=== PATIENT | female | born 1990 | race Caucasian/White ===

== ENCOUNTER → 2022-12-10 | Outpatient (CLI) | payer OTHER, SELFPAY ==
[2022-12-10 06:48] LABS: Absolute Neutrophil Count 4.7 X10^3/uL (2.0-7.7); Basophil# 0.05 X10^3/uL; Basophil% 0.6 % (0-1); Eosinophil# 0.49 X10^3/uL; Eosinophils% 6.1 % (0-5); Hematocrit 41.2 % (37-47); Hemoglobin 13.3 g/dL (12.0-15.0); Lymphocyte % 26.2 % (19-41); Mean Corp Hgb Conc 32.3 g/dL (32-36); Mean Corpuscular Hgb 29.2 pg (27.0-32.0); Mean Corpuscular Volume 90.5 fL (81-99); Mean Platelet Vol. 9.4 fl (6.2-12.0); Monocyte# 0.63 X10^3/uL; Monocyte% 7.9 % (0-10); NRBC Flagged by Analyzer 0 % (0-5); Neutrophil # 4.71 X10^3/uL (2.7-7.7); Neutrophil % 58.8 % (47-70); Platelet Count 231 K/mm3 (150-450); RBC Distribution Width CV 11.8 % (11.6-14.6); RBC Distribution Width SD 39.4 fl (35.1-43.9); Red Blood Count 4.55 M/mm3 (4.2-5.4)
[2022-12-10 07:39] LABS: AST(SGOT) 17 U/L (15-37); Alanine Aminotransfer ALT/SGPT 25 U/L (13-56); Albumin, Serum 3.7 g/dL (3.2-5.0); Alkaline Phosphatase 73 U/L (45-117); Anion Gap 6 (5-15); BUN 13 mg/dL (7-18); BUN/Creat Ratio 17.9 RATIO (10-20); Calcium,Total 8.8 mg/dL (8.5-10.1); Chloride 107 mmol/L (98-107); Cholesterol 105 mg/dL (200); Creatinine, Serum 0.72 mg/dL (0.55-1.02); EST Glomerular Filtration Rate 98 mL/min (>60); Est Glom Filt Rate - Afr Amer 118 mL/min (>60); Free T3 2.5 pg/mL (2.18-3.98); Globulin 3.6 g/dL (2.2-4.2); Glucose 82 mg/dL (74-106); High Density Lipoprotein 56 mg/dL; Potassium 3.8 mmol/L (3.5-5.1); Protein, Total 7.3 g/dL (6.4-8.2); Sodium Level 139 mmol/L (136-145); T4 Free Direct 1.16 ng/dL (0.76-1.46); Triglycerides 39 mg/dL; Very Low Density Lipoprotein 8 mg/dL (5-40)
[2022-12-10 08:54] LABS: Vitamin B12 491 pg/mL (211-911); Vitamin D,25 Hydroxy 40.8 ng/mL
[2022-12-10 09:04] LABS: Hemoglobin A1c 4.8 % (3.8-5.6)
[2022-12-12 08:11] LABS: Thyroid Peroxidase AB 360 IU/mL (0-34); Thyroid Stim Immunoglob <0.10 IU/L (0.00-0.55)
[2022-12-16 16:10] LABS: Endomysial Antibody IgA Negative (Negative); Immunoglobulin A 168 mg/dL (87-352); t-Transglutaminase IgA <2 U/mL (0-3)
== END | disposition home or self-care (01) ==
LOC: LAB 06:18
PROVIDERS: PCP Family Medicine; Referring Provider Family Medicine; Visit Provider Family Medicine
DX: R89.8 Other abnormal findings in specimens from other organs, systems and tissues (principal); Z13.228 Encounter for screening for other metabolic disorders; N97.9 Female infertility, unspecified; R94.6 Abnormal results of thyroid function studies; Z13.220 Encounter for screening for lipoid disorders; Z13.1 Encounter for screening for diabetes mellitus; Z13.0 Encounter for screening for diseases of the blood and blood-forming organs and certain disorders involving the immune mechanism
CPT/HCPCS: 36415; 80053; 80061; 82306; 82607; 82784; 83036; 83516; 84439; 84443; 84445; 84481; 85025; 86255; 86376

== ENCOUNTER → 2022-12-15 | Outpatient (CLI) | payer OTHER, SELFPAY ==
--- NOTE | 2022-12-15 15:20 | US_ITS ---
STUDY: THYROID ULTRASOUND REASON FOR EXAM: Female, 32 years old. Patient with L sided nodule and hx of infertility with no cause TECHNIQUE: Ultrasound evaluation of the thyroid was performed with real-time and static johnson-scale imaging. COMPARISON: None. FINDINGS: RIGHT LOBE: The right lobe of the thyroid gland measures 5.8 x 1.7 x 2.0 cm. There is a heterogeneous echotexture. 4 mm likely colloid cyst in the lower pole. LEFT LOBE: The left lobe of the thyroid gland measures 5.2 x 1.8 x 1.6 cm. There is a heterogeneous echotexture. Complex 1.3 cm nodule. 5 mm probable colloid cyst. ISTHMUS: The isthmus measures 3 mm . The thyroid gland appears diffusely slightly hypervascular. The regional lymph nodes are normal. US/Thyroid IMPRESSION: Nonspecific of the thyroid gland suspicious for probable chronic thyroiditis. Complex 1.3 cm left thyroid nodule should be followed in one year. Electronically Signed: Ld Greene MD at 22:47 EDT ,
== END | disposition home or self-care (01) ==
LOC: US 15:18
PROVIDERS: PCP Family Medicine; Referring Provider Family Medicine; Visit Provider Family Medicine
DX: R94.6 Abnormal results of thyroid function studies (principal); R89.8 Other abnormal findings in specimens from other organs, systems and tissues
CPT/HCPCS: 36415; 76536; 82784; 83516; 86255

== ENCOUNTER → 2023-01-26 | Outpatient (CLI) | payer OTHER, SELFPAY ==
[2023-01-26 08:08] LABS: T4 Free Direct 1.01 ng/dL (0.76-1.46); Thyroid Stim Hormone (TSH) 4.38 uIU/mL (0.358-3.74)
== END | disposition home or self-care (01) ==
PROVIDERS: PCP Family Medicine; Referring Provider Family Medicine; Visit Provider Family Medicine
DX: R94.6 Abnormal results of thyroid function studies (principal)
CPT/HCPCS: 36415; 84439; 84443

== ENCOUNTER → 2023-03-11 | Outpatient (CLI) | payer OTHER, SELFPAY ==
[2023-03-11 08:27] LABS: T4 Free Direct 1.31 ng/dL (0.76-1.46); Thyroid Stim Hormone (TSH) 2.59 uIU/mL (0.358-3.74)
== END | disposition home or self-care (01) ==
PROVIDERS: PCP Family Medicine; Referring Provider Family Medicine; Visit Provider Family Medicine
DX: E03.9 Hypothyroidism, unspecified (principal)
CPT/HCPCS: 36415; 84439; 84443

== ENCOUNTER → 2023-05-03 | Outpatient (CLI) | payer OTHER, SELFPAY ==
[2023-05-03 07:55] LABS: Ferritin 75 ng/mL (8-252); Free T3 2.6 pg/mL (2.18-3.98); T4 Free Direct 1.43 ng/dL (0.76-1.46); Thyroid Stim Hormone (TSH) 0.38 uIU/mL (0.358-3.74)
[2023-05-08 00:06] LABS: Beef <0.10 kU/L (Class 0); Chocolate <0.10 kU/L (Class 0); Codfish <0.10 kU/L (Class 0); Corn <0.10 kU/L (Class 0); Egg, Whole <0.10 kU/L (Class 0); Milk (Cow) <0.10 kU/L (Class 0); Mussels <0.10 kU/L (Class 0); Peanut <0.10 kU/L (Class 0); Pork <0.10 kU/L (Class 0); Salmon <0.10 kU/L (Class 0); Shrimp <0.10 kU/L (Class 0); Soybean <0.10 kU/L (Class 0); Tuna <0.10 kU/L (Class 0); Wheat <0.10 kU/L (Class 0)
== END | disposition home or self-care (01) ==
LOC: LAB 05:58
PROVIDERS: PCP Family Medicine; Referring Provider Family Medicine; Visit Provider Family Medicine
DX: L65.9 Nonscarring hair loss, unspecified (principal); E03.9 Hypothyroidism, unspecified; R19.8 Other specified symptoms and signs involving the digestive system and abdomen
CPT/HCPCS: 36415; 82728; 84439; 84443; 84481; 86003; 86005

== ENCOUNTER → 2023-05-05 | Outpatient (CLI) | payer OTHER, SELFPAY ==
[2023-05-11 10:08] LABS: HPV APTIMA, High Risk Negative (Negative)
== END | disposition home or self-care (01) ==
LOC: LABSPEC 16:51
PROVIDERS: PCP Family Medicine; Referring Provider Registered Nurse; Visit Provider Registered Nurse
DX: Z12.4 Encounter for screening for malignant neoplasm of cervix (principal)
CPT/HCPCS: 87624; 88175; G0145

== ENCOUNTER 2023-07-08 12:20 | Outpatient (REF) | payer SELFPAY ==
[2023-07-08 12:23] VITALS: BP 118/70; PULSE 70; RESP 14; TEMP 36.6; O2SAT 99; BMI 21.2
--- NOTE | 2023-07-08 13:29 | EDS_ITS ---
HPI History of Present Illness Chief Complaint: Occup Expose Informant: patient Onset/Context/Timing Location: Right Eye Onset: Today Context: Sudden Onset Worsened by: Nothing Relieved by: Nothing Narrative Narrative: Patient presents with occupational exposure that occurred today. Patient states she was sitting in her desk and somebody was standing beside her and disconnected some tubing. Patient states she felt something splashed into her eye. Patient states she looked down and noticed there was blood. Patient denies any visual changes. Patient denies any puncture wounds. Patient states she is up-to-date on her immunizations. Patient denies any other symptoms. Patient states she irrigated her eyes after the incident. [facility] Medical History COVID-19 Thyroid disease Home Medications multivitamin 1 tab PO DAILY 03/30/23 [History Last Taken Unknown] clomiphene citrate 50 mg tablet (Clomid) 50 mg PO DAILY 5 days #5 tabs 05/05/23 [Rx Last Taken Unknown] levothyroxine 37.5 mcg capsule 75 mcg PO DAILY 05/05/23 [History Last Taken Unknown] Allergy/AdvReac Type Severity Reaction Status Date / Time Latex, Natural Rubber Allergy Mild Hives Verified 07/08/23 12:21 nickel Allergy Mild Rash Verified 07/08/23 12:21 povidone-iodine Allergy Mild Hives Verified 07/08/23 12:21 [From Betadine] Seasonal Allergies: Uncoded Allergy Mild Other Verified 07/08/23 12:21 Family History (Updated 05/05/23 @ 15:40 by Jennifer Martini) Father Asthma Hypertension PAD (peripheral artery disease) Brother Asthma Grandmother Dementia Thyroid disorder Grandfather Dementia Grandfather Heart disease Father Heart disease Aunt Thyroid disorder Surgical History Hx of rhinoplasty Social History adopted: Yes household members: spouse number of children: 0 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 pets and animals: dog(s) history of recent travel: Yes ([place]) out of state: Yes out of country: No sexually active: Yes Smoking Status: Never smoker alcohol intake: current alcohol intake frequency: a few times a month Alcohol type: hard liquor substance use type: does not use diet: gluten free caffeine: No (stopped 1 month) what type of physical activity do you participate in: walking and weight training seatbelt use: always do you feel safe at home: Yes 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 ROS ED Constitutional Constitutional ED: Denies chills or fever(s) Eyes Eyes: Denies blurry vision or change in vision Respiratory/Chest Respiratory/Chest: Denies cough or dyspnea Gastrointestinal Gastrointestinal: Denies nausea or vomiting Musculoskeletal Musculoskeletal: Denies back pain or neck pain Integumentary Denies abscess or rash Neurologic Neurologic: Denies headache(s) Allergic/Immunologic Allergic/Immunologic ED: Denies urticaria EXAM Physical Exam Const Vital Signs: 07/08/23 12:23 Temperature 98 F Temperature Source Temporal Pulse Rate 70 Respiratory Rate 14 Blood Pressure 118/70 Blood Pressure Mean 86 Pulse Ox 99 Oxygen Delivery Method Room Air Positive well nourished and well developed General Appearance ED: well developed and NAD HEENT atraumatic Eyes Eyes Narrative: Pupils are equal, round, reactive to light bilaterally. Extraocular muscles are intact. Conjunctiva is clear. There are no foreign bodies noted. There is no lid edema noted. Neck supple and no JVD Resp normal respiratory effort and clear to auscultation bilaterally Cardio regular rate and regular rhythm Neuro oriented x3, CN's II-XII intact bilaterally, moves all extremities and no sensory deficits noted Sensorium / Orientation: alert Motor Exam: strength 5/5 throughout MDM MDM MDM Narrative Medical decision making narrative: Patient was advised that this is low risk for HIV exposure. Patient had protocol labs drawn. Patient will be instructed to follow-up with employee health for results. Patient was instructed to return if worse in any way. Patient understood and was agreeable with the plan. All questions were answered. Discharge Plan Triage Chief Complaint: Occup Expose ED Provider: Leonard Keller Dx/Rx/DC Orders Clinical Impression: Exposure to blood-borne pathogen Instructions: ED Body Fluid Exposure Not ..., ED Eye Exposure, Chemical Prescriptions: No Action clomiphene citrate [Clomid] 50 mg tablet 50 mg PO DAILY 5 Days Qty: 5 6RF Rx Instructions: start on 5 day of cycle (day 1 is first day of menstrual bleeding) for 5 days multivitamin Tablet 1 tab PO DAILY levothyroxine 37.5 mcg capsule 75 mcg PO DAILY Primary Care Provider: Katie No Referrals: Katie No, DO [Primary Care Provider] - 5-7 Days Health,Employee [Non-Staff -Ordering Privileges] - 5-7 Days Disposition Disposition: Home, Self Care
[2023-07-08 13:42] VITALS: RESP 16
[2023-07-08 14:21] LABS: HIV - WCH Non-Reactive (Nonreactive); Hepatitis B Surface Antibody Reactive; Hepatitis B Surface Antigen Non-Reactive (Nonreactive); Hepatitis C Antibody Non-Reactive (Nonreactive)
== END 2023-07-08 13:43 | disposition home or self-care (01) ==
LOC: EDREF 12:20
PROVIDERS: PCP Family Medicine; Visit Provider Emergency Medicine
DX: Z77.21 Contact with and (suspected) exposure to potentially hazardous body fluids (principal); E07.9 Disorder of thyroid, unspecified; Z79.899 Other long term (current) drug therapy
CPT/HCPCS: 36415; 86703; 86706; 86803; 87340; 99284

== ENCOUNTER → 2023-11-16 | Outpatient (CLI) | payer OTHER, SELFPAY ==
[2023-11-16 08:15] LABS: Thyroid Stim Hormone (TSH) 1.58 uIU/mL (0.358-3.74)
== END | disposition home or self-care (01) ==
LOC: LAB 06:49
PROVIDERS: PCP Family Medicine; Referring Provider Family Medicine; Visit Provider Family Medicine
DX: R00.2 Palpitations (principal); E03.9 Hypothyroidism, unspecified
CPT/HCPCS: 36415; 84443

== ENCOUNTER → 2023-12-03 | Outpatient (CLI) | payer OTHER, SELFPAY | END | disposition home or self-care (01) | LOC: LABSPEC 16:35 | PROVIDERS: PCP Family Medicine; Visit Provider Physician Assistant Surgical | DX: N39.0 Urinary tract infection, site not specified (principal) | CPT/HCPCS: 87086; 87088 ==

== ENCOUNTER → 2024-01-10 | Outpatient (CLI) | payer OTHER, SELFPAY ==
--- NOTE | 2024-01-10 16:16 | US_ITS ---
STUDY: THYROID ULTRASOUND REASON FOR EXAM: Female, 33 years old. Thyroid nodules TECHNIQUE: Ultrasound evaluation of the thyroid was performed with real-time and static johnson-scale imaging. COMPARISON: Comparison is made with prior study of December 15, 2022. FINDINGS: RIGHT LOBE: The right lobe of the thyroid gland is enlarged and measures 5.8 cm x 1.6 cm x 1.9 cm. There is a heterogeneous echotexture. Stable 4 mm x 3 mm x 3 mm solid/cystic nodule in the lower pole. This most likely represents a colloid cyst and is essentially unchanged. LEFT LOBE: The left lobe of the thyroid gland is enlarged and measures 5.6 cm x 1.7 cm x 1.3 cm. There is a heterogeneous echotexture. There is a 1 cm x 0.9 cm x 0.4 cm hypoechoic solid nodule in the upper pole. This is essentially unchanged. There is also evidence of a 4 mm x 5 mm x 3 mm hypoechoic solid nodule in the midpole. ISTHMUS: The isthmus measures 3 mm. There is evidence of a 1.4 cm x 0.9 cm x 0.4 cm benign-appearing lymph node along the inferior aspect of the left lobe of the thyroid. US/Thyroid IMPRESSION: Stable examination. Electronically Signed: Carlos Cuevas MD at 9:56 EDT ,
== END | disposition home or self-care (01) ==
LOC: US 16:15
PROVIDERS: PCP Family Medicine; Referring Provider Family Medicine; Visit Provider Family Medicine
DX: E03.9 Hypothyroidism, unspecified (principal)
CPT/HCPCS: 76536

== ENCOUNTER 2024-03-20 13:32 | Outpatient (REF) | payer SELFPAY ==
[2024-03-20 13:32] VITALS: BP 104/67; PULSE 72; RESP 16; TEMP 36.3; O2SAT 100; BMI 21.4
--- NOTE | 2024-03-20 16:19 | EDS_ITS ---
HPI History of Present Illness Chief Complaint: Occup Expose Informant: patient Narrative Narrative: Presents needlestick left middle finger. Play here. States blood was being transferred into the tube, she is recapping it when she got punctured. Swallowed needle. She had blood splashed in her eye previously. No needlesticks in the past. Tetanus up-to-date. She had her hepatitis A and B vaccinations. Source patient being tested in the field however no known HIV history. Tetanus Immunization: <5 years Prior similar symptoms: No PFSH PFSH Medical History COVID-19 Thyroid disease Home Medications ?Medication ?Instructions ?Recorded ?Last Taken ?Type multivitamin 1 tab PO DAILY 03/30/23 Unknown History levothyroxine 37.5 mcg capsule 75 mcg PO DAILY 05/05/23 Unknown History letrozole 2.5 mg tablet 2.5 mg PO DAILY 5 days #5 tabs 08/29/23 Unknown Rx Allergy/AdvReac Type Severity Reaction Status Date / Time Latex, Natural Rubber Allergy Mild Hives Verified 03/20/24 13:34 nickel Allergy Mild Rash Verified 03/20/24 13:34 povidone-iodine (From Allergy Mild Hives Verified 03/20/24 13:34 Betadine) Seasonal Allergies: Uncoded Allergy Mild Other Verified 03/20/24 13:34 Family History Father Asthma Hypertension PAD (peripheral artery disease) Brother Asthma Grandmother Dementia Thyroid disorder Grandfather Dementia Grandfather Heart disease Father Heart disease Aunt Thyroid disorder Surgical History Hx of rhinoplasty Social History adopted: Yes household members: spouse number of children: 0 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 pets and animals: dog(s) history of recent travel: Yes ([place]) out of state: Yes out of country: No sexually active: Yes Smoking Status: Never smoker alcohol intake: current alcohol intake frequency: a few times a month Alcohol type: hard liquor substance use type: does not use diet: gluten free caffeine: No (stopped 1 month) what type of physical activity do you participate in: walking and weight training seatbelt use: always do you feel safe at home: Yes 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 ROS ED Constitutional Constitutional ED: Denies fever(s) Cardiovascular Cardiovascular: Denies chest pain Respiratory/Chest Respiratory/Chest: Denies cough Gastrointestinal Gastrointestinal: Denies abdominal pain Musculoskeletal Musculoskeletal: Reports other Details: Puncture left middle finger Integumentary Reports wounds; Denies rash Neurologic Neurologic: Denies paresthesias EXAM Physical Exam Const Vital Signs: 03/20/24 13:32 Temperature 97.4 F L Temperature Source Temporal Pulse Rate 72 Respiratory Rate 16 Blood Pressure 104/67 Blood Pressure Mean 79 Pulse Ox 100 Oxygen Delivery Method Room Air Positive well nourished and well developed General Appearance ED: well developed and NAD HEENT Reports moist mucous membranes normocephalic Eyes General Eye ED: Yes normal appearance of both eyes Neck full ROM Resp normal respiratory effort and normal air movement Effort and Inspection: symmetric chest movement; Negative for respiratory distress Cardio regular rate, regular rhythm and no murmurs Peripheral Pulses: pulses 2+ throughout GI normal to inspection, nondistended, normoactive bowel sounds and non-tender Palpation: Negative for guarding or rebound tenderness present Back/Spine no CVA tenderness and no thoracic nor lumbar tenderness Extremity normal to inspection General Extremety ED: Negative for edema or tenderness General Extremity: Negative for edema Neuro oriented x3 and no sensory deficits noted Sensorium / Orientation: awake and alert Skin Skin Narrative: No clear puncture wound seen distal tip of middle finger on the left. There is slight callus formation at the tip. No drainage no erythema. MDM MDM MDM Narrative Medical decision making narrative: Interventions / MDM: Differential diagnosis: Needlestick left middle finger Diagnosis considered but do not suspect: N/A My EKG interpretation: N/A Imaging independently reviewed and interpreted by myself: N/A External documents reviewed: N/A Test considered but not ordered:N/A ED course: Vital stable needlestick protocol labs obtained. Patient not unknown HIV patient. However she did get stuck by all needle with blood. Discussed risk limit higher than a blunt needle. Discussed options to start prophylaxis for HIV. Risk and benefits were discussed. She will decline at this time. She will follow-up with occupational health for retesting as needed. All questions were answered. Re-evaluation: stable Disposition discussed with patient/family/significant other: Patient Case discussed with consulting clinician: N/A This note was generated with [employer] dictation software. It may contain incorrect words, spelling, and punctuation that were not noted in checking the note before signing. Discharge Plan Triage Chief Complaint: Occup Expose ED Provider: Patrick River Dx/Rx/DC Orders Clinical Impression: Needlestick injury of finger, Work related injury Instructions: ED NEEDLE STICK Health Care Worker Prescriptions: No Action multivitamin Tablet 1 tab PO DAILY levothyroxine 37.5 mcg capsule 75 mcg PO DAILY letrozole 2.5 mg tablet 2.5 mg PO DAILY 5 Days Qty: 5 3RF Rx Instructions: begin between days 2 and 5 of mentrual cycle Primary Care Provider: Umu Altamirano Referrals: Umu Altamirano MD [Primary Care Provider] - Activity Restrictions/Additional Instructions: Needlestick protocol labs were sent. Follow-up with occupational health. Print Language: Nepali Disposition Disposition: Home, Self Care
[2024-03-20 17:53] LABS: HIV - WCH Non-Reactive (Nonreactive); Hepatitis B Surface Antibody Reactive; Hepatitis B Surface Antigen Non-Reactive (Nonreactive); Hepatitis C Antibody Non-Reactive (Nonreactive)
== END 2024-03-20 16:46 | disposition home or self-care (01) ==
LOC: ED 13:32
PROVIDERS: PCP Family Medicine; Visit Provider Emergency Medicine
DX: S61.233A Puncture wound without foreign body of left middle finger without damage to nail, initial encounter (principal); W46.0XXA Contact with hypodermic needle, initial encounter; Z77.21 Contact with and (suspected) exposure to potentially hazardous body fluids
CPT/HCPCS: 86703; 86706; 86803; 87340

== ENCOUNTER 2024-08-03 20:08 | Emergency (ER) | payer OTHER, SELFPAY ==
[2024-08-03 20:09] VITALS: BP 126/66; PULSE 75; RESP 16; TEMP 36.6; O2SAT 99; BMI 21.6
--- NOTE | 2024-08-03 21:31 | EDS_ITS ---
HPI History of Present Illness Chief Complaint: Occup Expose [facility] Medical History Thyroid disease Home Medications ?Medication ?Instructions ?Recorded ?Last Taken ?Type multivitamin 1 tab PO DAILY 03/30/23 Unknown History levothyroxine 37.5 mcg capsule 75 mcg PO DAILY 05/05/23 Unknown History Allergy/AdvReac Type Severity Reaction Status Date / Time Latex, Natural Rubber Allergy Mild Hives Verified 08/03/24 20:13 nickel Allergy Mild Rash Verified 08/03/24 20:13 povidone-iodine (From Allergy Mild Hives Verified 08/03/24 20:13 Betadine) Seasonal Allergies: Uncoded Allergy Mild Other Verified 08/03/24 20:13 Family History Father Asthma Hypertension PAD (peripheral artery disease) Brother Asthma Grandmother Dementia Thyroid disorder Grandfather Dementia Grandfather Heart disease Father Heart disease Aunt Thyroid disorder Surgical History Hx of rhinoplasty Social History adopted: Yes household members: spouse number of children: 0 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 pets and animals: dog(s) history of recent travel: Yes ([place]) out of state: Yes out of country: No sexually active: Yes Smoking Status: Never smoker alcohol intake: current alcohol intake frequency: a few times a month Alcohol type: hard liquor substance use type: does not use diet: gluten free caffeine: No (stopped 1 month) what type of physical activity do you participate in: walking and weight training seatbelt use: always do you feel safe at home: Yes 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 Physical Exam Const Vital Signs: 08/03/24 20:09 08/03/24 21:39 08/03/24 23:15 Temperature 98 F Temperature Source Temporal Pulse Rate 75 Respiratory Rate 16 Respiratory Effort Normal Non-Labored Normal Non-Labored Respiratory Depth Normal Respiratory Pattern Normal Normal Blood Pressure 126/66 H Blood Pressure Mean 86 Pulse Ox 99 Oxygen Delivery Method Room Air 08/03/24 23:16 Temperature 97.1 F L Temperature Source Pulse Rate 85 Respiratory Rate 18 Respiratory Effort Respiratory Depth Respiratory Pattern Blood Pressure 137/82 H Blood Pressure Mean 100 Pulse Ox 98 Oxygen Delivery Method [facility] [place] Narrative Medical decision making narrative: HISTORY OF PRESENT ILLNESS: 34 F here with concern for formaldehyde exposure, complains of eye irritation, SOB, sore throat, cough. This occurred just prior to arrival. She denies any direct exposure provide she was in the same room someone cleaning. REVIEW OF SYSTEMS: Pertinent positives: As per HPI Pertinent negatives: Difficulty swallowing, drooling, visual changes PHYSICAL EXAM: Nursing triage notes reviewed, Vital signs reviewed Constitutional: please see mdm HENT: MMM Eyes: Pupils equal round and reactive to light, Extraocular muscles intact, visual acuity 20/15 bilaterally, no conjunctival injection, visual solitario intact, no signs of mucosal damage Neck: No stridor, no JVD, full neck ROM Lungs: Clear to auscultation, No wheezing or rales. No increased work of breathing, no conversational dyspnea, no accessory muscle use, no nasal flaring. No respiratory distress noted Heart: Regular rate and rhythm, No murmurs, No rubs and No gallops, 2+ distal pulses (radial, femoral, posterior tibial) in all extremities Abdomen: Soft, there is no tenderness, rigidity, rebound or guarding, no obvious peritoneal signs, no palpable pulsatile abdominal masses, no auscultated abdominal bruit : No CVAT Extremities: No edema Neuro: No new focal neurological deficits, cranial nerves II through XII intact, 5/5 strength in all present extremities. Intact sensation to light touch in all present extremities, 2+ reflexes bilateral patella tendons. Skin: No rash or lesions noted MEDICAL DECISION MAKING: Chief Complaint: Chemical exposure External records reviewed: Reviewed prior allergies Factors affecting care: none Social determinants of health: none History obtained from others: none Consults: Poison control : direct exposure could cause eye irritation. recommended decontamination. Avoid re-exposure. WOuld not expect systemic or local toxicity without direct exposure. [facility] Narrative: The patient was initially hemodynamically stable, afebrile and nontoxic- appearing. Exam without signs of airway compromise or visual changes. Did speak to poison control who recommended decontamination with eye irrigation. Further decontamination removal of all close was also recommended. I obtained an x-ray because the patient complaint of shortness of breath and cough. X-ray was read reviewed person myself showed evidence of obvious pulmonary abnormalities. No evidence of chemical pneumonitis or otherwise. Radiologist agreed my interpretation. The patient and/or family, caregivers express understanding. The patient and/or family, caregivers agrees with the plan. Shared decision making: I will have a discussion with the patient and or visitors regarding risk/benefits of further testing or admission. They will be made aware of of the risk/benefits inherent in this decision they will be given the opportunity to voice understanding. Total critical care time today provided was at least 0 minutes. This excludes separately billable procedures. Critical care time (if documented) is secondary to the patient having high probability of clinically significant/life threatening deterioration in the patient's condition which required my urgent intervention. Impression: 1. Chemical exposure 2. Chemical Eye Irritation Dispo: Discharge home This note was generated with [employer] dictation software. It may contain incorrect words, spelling, and punctuation that were not noted in review of the chart prior to signing. Radiography Diagnostic Testing: Clinical Impression(s) from Imaging Studies Chest X-Ray 08/03/24 22:24 IMPRESSION: No radiographic evidence of acute cardiopulmonary disease. Electronically Signed: Jas Mason MD at 23:06 EST , Discharge Plan Triage Chief Complaint: Occup Expose Other Complaint: Shortness of Breath ED Provider: Figueroa Johnson Dx/Rx/DC Orders Instructions: ED Chemical Inhalation Prescriptions: No Action multivitamin Tablet 1 tab PO DAILY levothyroxine 37.5 mcg capsule 75 mcg PO DAILY Primary Care Provider: Umu Altamirano Referrals: Umu Altamirano MD [Primary Care Provider] - Activity Restrictions/Additional Instructions: Thank you for trusting us with your care today! Please take Tylenol (2 pills, 650 mg), ibuprofen (2 pills, 400 mg) every 6 hours as needed for pain and fever control. Please return to the emergency department if your symptoms change or worsen. Please follow with your primary care physician for further outpatient evaluation and management. Print Language: Italian Disposition Disposition: Home, Self Care
--- NOTE | 2024-08-03 22:24 | RAD_ITS ---
EXAM: XR CHEST, 1 VIEW CLINICAL INDICATION: cough TECHNIQUE: Frontal view of the chest. COMPARISON: No relevant prior studies available. FINDINGS: LUNGS AND PLEURAL SPACES: Unremarkable. No consolidation or edema. No pneumothorax. No effusion. HEART: Unremarkable. Cardiac silhouette not enlarged. MEDIASTINUM: Central airways and mediastinal contour are unremarkable. BONES/JOINTS: Unremarkable. No acute fracture. SOFT TISSUES: Unremarkable. RAD/Chest 1 View (Portable) IMPRESSION: No radiographic evidence of acute cardiopulmonary disease. Electronically Signed: Jas Mason MD at 23:06 EST ,
[2024-08-03 23:15] VITALS: O2SAT 98
[2024-08-03 23:16] VITALS: BP 137/82; PULSE 85; RESP 18; TEMP 36.2; O2SAT 98
== END 2024-08-03 23:30 | disposition home or self-care (01) ==
PROVIDERS: Emergency Provider Emergency Medicine; PCP Family Medicine; Visit Provider Emergency Medicine
DX: Z77.098 Contact with and (suspected) exposure to other hazardous, chiefly nonmedicinal, chemicals (principal); R06.02 Shortness of breath; Z82.49 Family history of ischemic heart disease and other diseases of the circulatory system; Z82.5 Family history of asthma and other chronic lower respiratory diseases; H57.89 Other specified disorders of eye and adnexa; E07.9 Disorder of thyroid, unspecified
CPT/HCPCS: 71045; 99284

== ENCOUNTER → 2024-12-27 | Outpatient (CLI) | payer OTHER, SELFPAY ==
[2024-12-27 11:02] LABS: Absolute Lymphocyte Count 1.97 X10^3/uL (0.83-4.51); Absolute Neutrophil Count 3.3 X10^3/uL (2.0-7.7); Basophil# 0.02 X10^3/uL; Basophil% 0.3 % (0-1); Eosinophil# 0.73 X10^3/uL; Hematocrit 39.1 % (37-47); Lymphocyte # 1.97 X10^3/ul (0.83-4.51); Lymphocyte % 29.8 % (19-41); Mean Corp Hgb Conc 33.2 g/dL (32-36); Mean Corpuscular Hgb 29.5 pg (27.0-32.0); Mean Corpuscular Volume 88.7 fL (81-99); Mean Platelet Vol. 9.3 fl (6.2-12.0); Monocyte% 9.1 % (0-10); NRBC Flagged by Analyzer 0 % (0-5); Neutrophil # 3.28 X10^3/uL (2.7-7.7); Neutrophil % 49.6 % (47-70); Platelet Count 215 K/mm3 (150-450); RBC Distribution Width CV 12.2 % (11.6-14.6); RBC Distribution Width SD 39.7 fl (35.1-43.9); Red Blood Count 4.41 M/mm3 (4.2-5.4); White Blood Count 6.6 K/mm3 (4.4-11.0)
[2024-12-27 13:37] LABS: ALB/GLOB Ratio 1.6 RATIO (0.9-2.4); AST(SGOT) 16 U/L (<=31); Alanine Aminotransfer ALT/SGPT 14 U/L (<=34); Albumin, Serum 4.2 g/dL (3.5-5.0); Alkaline Phosphatase 77 U/L (35-104); Anion Gap 10 (5-15); BUN 10 mg/dL (4-19); BUN/Creat Ratio 16.7 RATIO (10-20); Carbon Dioxide 21.2 mmol/L (21.0-32.0); Chloride 107 mmol/L (98-108); Cholesterol 119 mg/dL (<=200); EST Glomerular Filtration Rate 120 (>60); Globulin 2.7 g/dL (2.2-4.2); Glucose 80 mg/dL (70-99); High Density Lipoprotein 51 mg/dL; Low Density Lipoprotein Calc. 56 mg/dL; Potassium 3.9 mmol/L (3.3-5.1); Protein, Total 6.9 g/dL (5.9-8.4); Sodium Level 138 mmol/L (133-145); Thyroid Stim Hormone (TSH) 0.847 uIU/mL (0.300-4.200); Total Bilirubin 0.35 mg/dL (0.00-1.30); Triglycerides 62 mg/dL; Very Low Density Lipoprotein 12 mg/dL (5-40); Vitamin D,25 Hydroxy 51.9 ng/mL (30-100); cholesterol:hdl ratio screen 2.34
== END | disposition home or self-care (01) ==
LOC: LAB 10:07
PROVIDERS: PCP Family Medicine; Referring Provider Family Medicine; Visit Provider Family Medicine
DX: Z00.00 Encounter for general adult medical examination without abnormal findings (principal); R89.8 Other abnormal findings in specimens from other organs, systems and tissues; Z13.220 Encounter for screening for lipoid disorders; Z13.1 Encounter for screening for diabetes mellitus; E03.9 Hypothyroidism, unspecified
CPT/HCPCS: 36415; 80053; 80061; 82306; 84443; 85025

== ENCOUNTER 2025-03-21 13:30 | Outpatient (CLI) | payer OTHER, SELFPAY ==
--- OUTSIDE RECORDS SUMMARY | 2025-03-21 19:41 | XMS RPT_ITS | CCD ---
Author Organization [facility] Inform ion Partnership [facility] Care Team Providers Care Bracelet Form Coverer Name Role Phone Becky Parham Unavailable Unavailable Becky Parham Unavailable Unavailable MAXIME IVEY Unavailable MAXIME IVEY Unavailable Maxime Ivey MD Primary Care Provider Max Glaser MD Unavailable Maxime Ivey MD Primary Care Provider Max Glaser MD Unavailable [phone] Maxime Ivey MD Primary Care Provider Max Glaser MD Unavailable MAXIME IVEY Primary Care Unavailab MINA Austin Attending UnavailMINA Tran Referring UnavailMAXIME Sylvester Primary Care Unavailab MINA Austin Attending UnavailJENNIFER eMnsah Referring Unavailable MAXIME IVEY Primary Care Unavailab MINA Austin Attending UnavailMINA Tran Referring UnavailMAXIME Sylvester Primary Care Unavailab MINA Austin Attending UnavailMINA Tran Referring Unavailabl MAXIME Mukherjee Primary Care Unavailab MINA Austin Referring UnavailMAXIME Sylvester Primary Care Unavailab MAXIME Cutler Primary Care Unavailab MINA Austin Referring Unavailabl MAXIME Mukherjee Referring Unavailab MAXIME Cutler Primary Care Unavailab MAXIME Cutler Primary Care Unavailab MAXIME Cutler Primary Care Unavailab YAMILA Bean Attending Unavail able MINA VARELA Referring Unavailabl e MINA VARELA Referring Unavailabl e KODY, CHRISTOPHER B Primary Care Unavailab le KODY, CHRISTOPHER B Primary Care Unavailab JENI Beal Attending Unavailable BURSLEY, CHRISTOPHER B Primary Care Unavailab BRAULIO Stoll Attending Unavailable BURSLEY, CHRISTOPHER B Primary Care Unavailab le KEARNEY, JENNIFER Referring Unavailable KEARNEY, JENNIFER Referring Unavailable BURSLEY, CHRISTOPHER B Primary Care Unavailab le KEARNEY, JENNIFER Attending Unavailable BURSLEY, CHRISTOPHER B Primary Care Unavailab le DUDZIAK CARIDAD Referring Unavailable BURSLEY, CHRISTOPHER B Primary Care Unavailab DO Katie Underwood Primary Care Provider [phone] DO Katie No Referring Provider [phone] MADONNA Schaffer Attending Provider AMINA Avila Attending Provider DO Katie No Primary Care Provider [phone] DO Katie No Referring Provider MADONNA Rojas Attending Provider Umu Altamirano MD Primary Care Provider [phone] Umu Altamirano MD Attending Provider [phone] Umu Altamirano MD Referring Provider [phone] Evelia, Chalon Referring Unavailable Evelia, Umu Attending Unavailable Evelia, Chalon Primary Care Unavailable Evelia, Chalon Primary Care Unavailable Figueroa Johnson Attending Unavailable Evelia, Chalon Primary Care Unavailable Patrick River Attending Unavailable Evelia, Chalon Primary Care Unavailable Katie No Referring Unavailable Pina Babcock Attending Unavailable Evelia, Umu Referring Unavailable Cathy Bradley Attending Unavailable Evelia, Chalon Primary Care Unavailable Cathy Sams Attending Provider Allergies Allergy Classification Reported Allergen(s) Allergy Type Date of Onset Reaction(s) Facility (17 sources) Latex; Translations: [LATEX] Propensity to adverse reactions (disorder) 8 Rash [facility] Repository (17 sources) Seasonal allergy; Translations: [SEASONAL ALLERGIES] Propensity to adverse reactions (disorder) 0 Unknown [facility] Repository (6 sources) beta-Blocking agent; Translations: [BETA-BLOCKERS (BETA-ADRENERGI C BLOCKING AGTS)] Propensity to adverse reactions to drug 0 Contraindicatio [facility] Work Phone: (16 sources) Escitalopram; Translations: [ESCITALOPRAM OXALATE] Drug Allergy 0 Other: See Comments [facility] Work Phone: (16 sources) hydrOXYzine; Translations: [HYDROXYZINE HCL] Drug Allergy 0 Other: See Comments [facility] Work Phone: (20 sources) nickel; Translations: [NICKEL] Drug Allergy 8 Rash [facility] (16 sources) Propranolol; Translations: [PROPRANOLOL] Drug Allergy 8 Other: See Comments [facility] Work Phone: (10 sources) beta-Blocking agent Propensity to adverse reactions to drug 0 [facility] Work Phone: (5 sources) natural latex rubber Allergy to substance 3 [facility] (5 sources) Povidone-Iodine Drug Allergy 3 [facility] (6 sources) Seasonal Allergies: Uncoded; Translations: [Seasonal Allergies: Uncoded] Allergy to substance 3 Other [facility] Comment on above: runny nose congestio n (1 source) natural latex rubber Drug allergy (disorder) 5 [facility] Repository (1 source) nickel Drug Allergy 5 [facility] Repository (1 source) Povidone-Iodine Drug Allergy 5 [facility] Repository Medications Current Medications Medication Drug Class(es) Dates Sig (Normalized) Sig (Original) Calc-D3-Mag Cit,Ox-K2-Herb 353 (Alive Calcium-Vitamin D3-K2) 300 mg-25 mcg- 66 mg-37.5 mcg tablet (1 source) Start: 03-21-2025 Calc-D3-Mag Cit,Ox-K2-Herb 353 (Alive Calcium-Vitamin D3-K2) 300 mg-25 mcg- 66 mg-37.5 mcg tablet Active {tbl} PO March 21, 2025 12:00am Levothyroxine (10 sources) l-Thyroxine Start: 05-05-2023 take 2 capsules by mouth once daily Levothyroxine 37.5 mcg capsule Active 75 ug PO DAILY May 05, 2023 3:35pm Start: 05-05-2023 take 75 ug by mouth once daily Levothyroxine Active 75 MCG PO DAILY May 05, 2023 3:35pm Start: 05-05-2023 take 75 ug by mouth once daily Levothyroxine Active 75 MCG PO DAILY May 05, 2023 2:35pm Start: 03-30-2023 End: 05-05-2023 take 1 capsule by mouth once daily Levothyroxine 37.5 mcg capsule Discontinued 37.5 ug PO DAILY March 30, 2023 12:00am May 05, 2023 3:35pm Start: 03-30-2023 End: 05-05-2023 take 37.5 ug by mouth once daily Levothyroxine Discontinued 37.5 MCG PO DAILY March 30, 2023 12:00am May 05, 2023 3:35pm Start: 03-30-2023 End: 05-05-2023 take 37.5 ug by mouth once daily Levothyroxine Discontinued 37.5 MCG PO DAILY March 29, 2023 11:00pm May 05, 2023 2:35pm loratadine 10 mg oral tablet (3 sources) Start: 03-21-2025 take 1 tablet by mouth once daily Loratadine (Claritin) 10 mg tablet Active 10 mg PO daily March 21, 2025 12:00am Start: 01-08-2017 End: 01-05-2022 take 1 tablet by mouth once daily loratadine (CLARITIN) 10 mg tablet Indications: Seasonal allergic rhinitis, unspecified allergic rhinitis trigger Take 1 tablet by mouth once daily. 0 01/08/2017 01/05/2022 Discontinued Comment on above: Take 1 tablet by venita th once daily. Multivitamin preparation (3 sources) Start: 03-30-2023 take 1 tablet by mouth once daily Multivitamin Active 1 TABLET PO DAILY March 30, 2023 12:00am Start: 03-30-2023 take 1 tablet by venita th once daily Multivitamin Active 1 TABLET PO DAILY March 29, 2023 11:00pm Multivitamin tablet (2 sources) Start: 03-30-2023 Multivitamin t ablet Active 1 {tbl} PO DAILY March 30, 2023 12:00am Completed/Discontinued Medications Medication Drug Class(es) Dates Sig (Normalized) Sig (Original) [id number] 200 actuat albuterol 0.09 mg/actuat metered dose inhaler (14 sources) beta2-Adrenergic Agonist Start: 02-03-2019 take 2 puff(s) by inhalation every four hours as needed albuterol HFA (VENTOLIN HFA) 90 mcg/actuation inhaler Indications: Dry cough Inhale 2 Puffs as instructed every 4 hours as needed. 1 Inhaler 1 02/03/2019 Active Comment on above: Inhale 2 Puffs as in structed every 4 hours as needed. azelastine hydrochloride 0.137 mg/actuat metered dose nasal spray (14 sources) Histamine-1 Receptor Antagonist Start: 10-02-2021 take 2 spray(s) nasal route twice daily as needed azelastine (ASTELIN) 0.1% nasal spray Use 2 Sprays in each nostril twice daily as needed. 30 mL 0 10/02/2021 Active Comment on above: Use 2 Sprays in each nostril twice daily as needed. benzonatate 200 mg oral capsule (5 sources) Non-narcotic Antitussive Start: 03-30-2023 End: 05-05-2023 take 1 capsule by mouth three times daily as needed for cough Benzonatate 200 mg capsule Discontinued 200 mg PO THREE TIMES A DAY as needed for cough 20 0 March 30, 2023 12:00am May 05, 2023 3:35pm cholecalciferol, vitamin D3, (VITAMIN D3 ORAL) (14 sources) cholecalciferol, vitamin D3, (VITAMIN D3 ORAL) Take by mouth. 0 Active Comment on above: Take by mouth. clomiPHENE citrate 50 mg oral tablet (15 sources) Estrogen Agonist/Antagonist Start: 05-05-2023 End: 08-29-2023 take 1 tablet by mouth once daily Clomiphene Citrate (Clomid) 50 mg tablet Discontinued 50 mg PO DAILY 5 5 6 May 05, 2023 5:14pm August 29, 2023 9:28am start on 5 day of cycle (day 1 is first day of menstrual bleeding) for 5 days dexamethasone 6 mg oral tablet (5 sources) Corticosteroid Start: 03-30-2023 End: 05-05-2023 take 1 tablet by mouth once daily Dexamethasone 6 mg tablet Discontinued 6 mg PO DAILY 5 0 March 30, 2023 12:00am May 05, 2023 3:35pm [id number] 0.3 ml EPINEPHrine 1 mg/ml auto-injector (14 sources) alpha-Adrenergic Agonist, beta-Adrenergic Agonist, Catecholamine Start: 11-26-2020 EPINEPHrine (AUVI-Q) 0.3 mg/0.3 mL auto-injector Inject 0.3 mL intramuscularly as needed. For allergic reaction.Seek emergent medical care immediately after use.Disp:1 2-packw/instructor trainer canine service 1 Each 1 11/26/2020 Active Comment on above: Inject 0.3 mL intram uscularly as needed. For allergic reaction.Seek emergent medical care immediately after use.Disp:1 2-packw/instructor trainer canine service letrozole 2.5 mg oral tablet (4 sources) Aromatase Inhibitor Start: 08-29-2023 End: 05-22-2024 Letrozole 2.5 mg tablet Discontinued 2.5 mg PO DAILY 5 5 3 August 29, 2023 1:00am May 22, 2024 3:17pm begin between days 2 and 5 of mentrual cycle mv-min/iron/folic/ calcium/vitK (WOMEN'S MULTIVITAMIN ORAL) (14 sources) Start: 08-19-2018 mv-min/iron/folic/ca lcium/vitK (WOMEN'S MULTIVITAMIN ORAL) nitrofurantoin, macrocrystals 25 mg / nitrofurantoin, monohydrate 75 mg oral capsule (3 sources) Nitrofuran Antibacterial Start: 12-03-2023 End: 12-10-2023 take 1 capsule by mouth every twelve hours at mealtime Nitrofurantoin Monohyd/M-Cryst 100 mg capsule Discontinued 1 NMA PO Q12H 14 7 0 December 03, 2023 12:00am December 09, 2023 12:00am December 10, 2023 12:06am administer with a meal/food; swallow whole; do not open, crush, dissolve , or chew Problems Active Problems Problem Classification Problem Date Documented Da te Episodic/Chronic Anxiety disorders (14 sources) Mixed anxiety and depressive disorder; Translations: [Other specified anxiety disorders] 02-26-2021 Chronic Blindness and vision defects (1 source) Bilateral regular astigmatism; Translations: [Regular astigmatism, bilateral] Episodic Cardiac and circulatory congenital anomalies (14 sources) Patent foramen ovale; Translations: [Atrial septal defect] 02-15-2018 Chronic Contraceptive and procreative management (10 sources) Finding of fertility; Translations: [Encounter for fertility testing] Onset: 2 Episodic E Codes: Unspecified (2 sources) Accident while engaged in work-related activity; Translations: [Civilian activity done for income or pay] 03-20-2024 Episodic Esophageal disorders (1 source) Gastroesophageal reflux disease; Translations: [Gastro-esophageal reflux disease without esophagitis] 03-21-2025 Chronic Female infertility (10 sources) Female infertility; Translations: [Female infertility, unspecified] Onset: 2 Chronic Headache; including migraine (14 sources) Migraine with aura; Translations: [Migraine with aura, not intractable, without status migrainosus] 01-28-2018 Chronic Inflammation; infection of eye (except that caused by tuberculosis or sexually transmitteddisease) (14 sources) Bilateral punctate keratitis of eyes; Translations: [Punctate keratitis, bilateral] Onset: 8 11-19-2017 Chronic Menstrual disorders (1 source) Dysmenorrhea, unspecified; Translations: [Dysmenorrhea] Onset: 2 Chronic Open wounds of extremities (2 sources) Needle stick injury of finger 03-20-2024 Episodic Other gastrointestinal disorders (2 sources) Diarrhea; Translations: [Diarrhea, unspecified] 03-21-2025 Episodic Other gastrointestinal disorders (1 source) Abdominal bloating; Translations: [Abdominal distension (gaseous)] 03-21-2025 Episodic Other gastrointestinal disorders (2 sources) Constipation; Translations: [Constipation, unspecified] 03-21-2025 Episodic Other screening for suspected conditions (not mental disorders or infectious disease) (3 sources) Patient encounter status; Translations: [Encounter for test, result unknown] Onset: 2 Episodic Other upper respiratory disease (14 sources) Seasonal allergy; Translations: [Other seasonal allergic rhinitis] 06-03-2018 Chronic Other upper respiratory disease (14 sources) Allergic rhinitis due to animal hair and dander; Translations: [Allergic rhinitis due to animal (cat) (dog) hair and dander] Onset: 0 09-21-2019 Chronic Other upper respiratory disease (14 sources) Allergic rhinitis due to house dust mite; Translations: [Other allergic rhinitis] Onset: 0 09-21-2019 Chronic Other upper respiratory disease (14 sources) Allergic rhinitis due to pollen; Translations: [Allergic rhinitis due to pollen] Onset: 0 09-21-2019 Chronic Residual codes; unclassified (5 sources) Contact with and (suspected) exposure to potentially hazardous body fluids; Translations: [Exposure to blood-borne pathogen] 07-08-2023 Episodic Residual codes; unclassified (2 sources) Infertile 05-22-2024 Episodic Comment on above: failed clomid and le trozole in past. Declines further intervention Thyroid disorders (5 sources) Disorder of thyroid gland; Translations: [Disorder of thyroid, unspecified] 03-30-2023 Episodic Unclassified (1 source) No-show for appointment; Translations: [No-show for appointment] Onset: 2 Unclassified (5 sources) Infertility; Translations: [Infertile] Onset: 2 05-05-2023 Unclassified (1 source) Encounter for screening for COVID-19; Translations: [Encounter for screening for COVID-19] Onset: 2 Urinary tract infections (1 source) Urinary tract infection, site not specified; Translations: [Urinary tract infection, site not specified] 12-03-2023 Episodic Viral infection (4 sources) Disease caused by 2019-nCoV; Translations: [COVID-19] 03-30-2023 Episodic Past or Other Problems Problem Classification Problem Date Documented Da te Episodic/Chronic Other upper respiratory disease (14 sources) Deviated nasal septum; Translations: [Deviated nasal septum] Onset: 12-21-2018 12-21-2018 Episodic Other upper respiratory disease (14 sources) Hypertrophy of nasal turbinates; Translations: [Hypertrophy of nasal turbinates] Onset: 12-21-2018 12-21-2018 Episodic Otitis media and related conditions (14 sources) Dysfunction of bilateral eustachian tubes; Translations: [Other specified disorders of Eustachian tube, bilateral] Onset: 12-21-2018 12-21-2018 Episodic Residual codes; unclassified (1 source) Contact with and (suspected) exposure to other hazardous, chiefly nonmedicinal, chemicals; Translations: [Contact with and (suspected) exposure to other hazardous, chiefly nonmedicinal, chemicals] Onset: 08-29-2024 Episodic Results Test Name Value Interpretation Reference Range Facility Absolute lymphocyte countOrd ered By: Umu Altamirano on 12-27-2024 Lymphocytes Auto (Unsp spec) [#/Vol] 1.97 10*3/uL 0.83-4.51 [facility] Absolute neutrophil countOrd ered By: Umu Altamirano on 12-27-2024 Neutrophils (Bld) [#/Vol] 3.3 10*3/uL 2.0-7.7 [facility] Anion gap in Serum or Plasma Ordered By: Umu Altamirano on 12-27-2024 Anion gap [Moles/Vol] 10 mmol/L 5-15 [facility] Automated lymphocyte count a s percentage of total leukocytesOrdered By: Umu Altamirano on 12-27-2024 Lymphocytes/100 WBC Auto (Unsp spec) 29.8 % 19-41 [facility] BUN/creatinine ratioOrdered By: [facility] on 12-27-2024 Urea nitrogen/Creatinine [Mass ratio] 16.7 mg/mg 10-20 [facility] Basophil percentageOrdered B y: Umu Altamirano on 12-27-2024 Basophils/100 WBC (Bld) 0.3 % 0-1 [facility] Bilirubin, totalOrdered By: Umu Altamirano on 12-27-2024 Bilirubin [Mass/Vol] 0.35 mg/dL 0.00-1.30 [facility] CBC W/Diff, Automatedon 12-01 Absolute Lymph 1.97 X10 3/uL Normal 0.83-4.51 [facility] Comment on above: Performed By: #### L [id number], L501.9520, L506.1001, L100.0100, L500.4100 #### [facility] [address] [place], [address] Absolute Neut 3.3 X10 3/uL Normal 2.0-7.7 [facility] Comment on above: Performed By: #### L 500.4050, [id number], L506.1001, L100.0100, L500.4100 #### [facility] [address] [place], [address] Basophils/100 WBC (Bld) 0.3 % Normal 0-1 [facility] Comment on above: Performed By: #### L 500.4050, [id number], L506.1001, L100.0100, L500.4100 #### [facility] [address] [place], [address] Eosinophils/100 WBC (Bld) 11.0 % High 0-5 [facility] Comment on above: Performed By: #### L 500.4050, [id number], L506.1001, L100.0100, L500.4100 #### [facility] [address] [place], [address] Erythrocyte distribution width (RBC) [Ratio] 12.2 % Normal 11.6-14.6 [facility] Comment on above: Performed By: #### L 500.4050, [id number], L506.1001, L100.0100, L500.4100 #### [facility] [address] [place], [address] Hematocrit (Bld) [Volume fraction] 39.1 % Normal 37-47 [facility] Comment on above: Performed By: #### L 500.4050, [id number], L506.1001, L100.0100, L500.4100 #### [facility] [address] [place], [address] Hemoglobin (Bld) [Mass/Vol] 13.0 g/dL Normal 12.0-15.0 [facility] Comment on above: Performed By: #### L 500.4050, [id number], L506.1001, L100.0100, L500.4100 #### [facility] [address] [place], [address] IG% 0.200 Normal 0.0-0.9 [facility] Comment on above: Result Comment: IG% - Immature Granulocytes (promyelocytes, myelocytes and metamyelocytes) > 1% indicates that a LEFT SHIFT is Present. Performed By: #### L 500.4050, L501.9520, L506.1001, L100.0100, L500.4100 #### [facility] [address] [place], [address] Lymphocytes/100 WBC (Bld) 29.8 % Normal 19-41 [facility] Comment on above: Performed By: #### L 500.4050, [id number], L506.1001, L100.0100, L500.4100 #### [facility] [address] [place], [address] MCH (RBC) [Entitic mass] 29.5 pg Normal 27.0-32.0 [facility] Comment on above: Performed By: #### L 500.4050, [id number], L506.1001, L100.0100, L500.4100 #### [facility] [address] [place], [address] MCHC (RBC) [Mass/Vol] 33.2 g/dL Normal 32-36 [facility] Comment on above: Performed By: #### L 500.4050, [id number], L506.1001, L100.0100, L500.4100 #### [facility] [address] [place], [address] MCV (RBC) [Entitic vol] 88.7 fL Normal 81-99 [facility] Comment on above: Performed By: #### L 500.4050, [id number], L506.1001, L100.0100, L500.4100 #### [facility] [address] [place], [address] Monocytes/100 WBC (Bld) 9.1 % Normal 0-10 [facility] Comment on above: Performed By: #### L 500.4050, [id number], L506.1001, L100.0100, L500.4100 #### [facility] [address] [place], [address] Neutrophils/100 WBC (Bld) 49.6 % Normal 47-70 [facility] Comment on above: Performed By: #### L 500.4050, [id number], L506.1001, L100.0100, L500.4100 #### [facility] [address] [place], [address] Nucleated RBC (Bld) [#/Vol] 0 10*3/uL Normal 0-5 [facility] Comment on above: Performed By: #### L 500.4050, [id number], L506.1001, L100.0100, L500.4100 #### [facility] [address] [place], [address] Platelet mean volume (Bld) [Entitic vol] 9.3 fL Normal 6.2-12.0 [facility] Comment on above: Performed By: #### L 500.4050, [id number], L506.1001, L100.0100, L500.4100 #### [facility] [address] [place], [address] Platelets (Bld) [#/Vol] 215 10*3/uL Normal 150-450 [facility] Comment on above: Performed By: #### L 500.4050, [id number], L506.1001, L100.0100, L500.4100 #### [facility] [address] [place], [address] RBC (Bld) [#/Vol] 4.41 10*6/uL Normal 4.2-5.4 [facility] Comment on above: Performed By: #### L 500.4050, [id number], L506.1001, L100.0100, L500.4100 #### [facility] [address] [place], [address] RDW SD 39.7 fl Normal 35.1-43.9 [facility] Comment on above: Performed By: #### L 500.4050, [id number], L506.1001, L100.0100, L500.4100 #### [facility] [address] [place], [address] WBC (Bld) [#/Vol] 6.6 10*3/uL Normal 4.4-11.0 [facility] Comment on above: Performed By: #### L 500.4050, [id number], L506.1001, L100.0100, L500.4100 #### [facility] [address] [place], [address] Calculated very low density lipoprotein (VLDL) cholesterol measurementOrdered By: Umu Altamirano on 12-27-2024 Calculated very low density lipoprotein (VLDL) cholesterol measurement 12 mg/dL 5-40 [facility] Carbon dioxide, total [Moles /volume] in Central venous bloodOrdered By: Umu Altamirano on 12-27-2024 CO2 [Moles/Vol] 21.2 mmol/L 21.0-32.0 [facility] Chloride assayOrdered By: Magdalena Altamirano on 12-27-2024 Chloride [Moles/Vol] 107 mmol/L 98-108 [facility] Comprehensive Metabolic Prof ilon 12-27-2024 Albumin [Mass/Vol] 4.2 g/dL Normal 3.5-5.0 [facility] Comment on above: Performed By: #### L 500.4050, L501.9520, L506.1001, L100.0100, L500.4100 #### [facility] [address] [place], [address] Albumin/Globulin [Mass ratio] 1.6 {ratio} Normal 0.9-2.4 [facility] Comment on above: Performed By: #### L 500.4050, [id number], L506.1001, L100.0100, L500.4100 #### [facility] [address] [place], [address] ALK PHOS 77 U/L Normal 35-104 [facility] Comment on above: Performed By: #### L 500.4050, [id number], L506.1001, L100.0100, L500.4100 #### [facility] [address] [place], [address] ALT [Catalytic activity/Vol] 14 U/L Normal <=34 [facility] Comment on above: Performed By: #### L 500.4050, [id number], L506.1001, L100.0100, L500.4100 #### [facility] [address] [place], [address] AST [Catalytic activity/Vol] 16 U/L Normal <=31 [facility] Comment on above: Performed By: #### L 500.4050, [id number], L506.1001, L100.0100, L500.4100 #### [facility] [address] [place], [address] Bilirubin [Mass/Vol] 0.35 mg/dL Normal 0.00-1.30 [facility] Comment on above: Performed By: #### L 500.4050, [id number], L506.1001, L100.0100, L500.4100 #### [facility] [address] [place], [address] BUN/CRE 16.7 RATIO Normal 10-20 [facility] Comment on above: Performed By: #### L 500.4050, [id number], L506.1001, L100.0100, L500.4100 #### [facility] [address] [place], [address] Calcium [Mass/Vol] 9.0 mg/dL Normal 7.6-11.0 [facility] Comment on above: Performed By: #### L 500.4050, [id number], L506.1001, L100.0100, L500.4100 #### [facility] [address] [place], [address] Chloride [Moles/Vol] 107 mmol/L Normal 98-108 [facility] Comment on above: Performed By: #### L 500.4050, [id number], L506.1001, L100.0100, L500.4100 #### [facility] [address] [place], [address] CO2 [Moles/Vol] 21.2 mmol/L Normal 21.0-32.0 [facility] [facility] Comment on above: Performed By: #### L 500.4050, L501.9520, L506.1001, L100.0100, L500.4100 #### [facility] [address] [place], [address] Creatinine [Mass/Vol] 0.60 mg/dL Low 0.70-1.20 [facility] Comment on above: Performed By: #### L 500.4050, L501.9520, L506.1001, L100.0100, L500.4100 #### [facility] [address] [place], [address] GAP 10 Normal 5-15 [facility] Comment on above: Performed By: #### L 500.4050, L501.9520, L506.1001, L100.0100, L500.4100 #### [facility] [address] [place], [address] GFR/1.73 sq M.predicted among non-blacks MDRD (S/P/Bld) [Vol rate/Area] 120 mL/min/{1.73_m2} Normal >60 [facility] Comment on above: Result Comment: mL/m in/1.73m2 CKD-EPI Creatinine Equation (2020) Performed By: #### L 500.4050, L501.9520, L506.1001, L100.0100, L500.4100 #### [facility] [address] [place], [address] Globulin (S) [Mass/Vol] 2.7 g/dL Normal 2.2-4.2 [facility] Comment on above: Performed By: #### L 500.4050, L501.9520, L506.1001, L100.0100, L500.4100 #### [facility] [address] [place], [address] Glucose [Mass/Vol] 80 mg/dL Normal 70-99 [facility] Comment on above: Performed By: #### L 500.4050, L501.9520, L506.1001, L100.0100, L500.4100 #### [facility] [address] [place], [address] Potassium [Moles/Vol] 3.9 mmol/L Normal 3.3-5.1 [facility] Comment on above: Performed By: #### L 500.4050, L501.9520, L506.1001, L100.0100, L500.4100 #### [facility] [address] [place], [address] Sodium [Moles/Vol] 138 mmol/L Normal 133-145 [facility] Comment on above: Performed By: #### L 500.4050, L501.9520, L506.1001, L100.0100, L500.4100 #### [facility] [address] [place], [address] T PROT 6.9 g/dL Normal 5.9-8.4 [facility] Comment on above: Performed By: #### L 500.4050, L501.9520, L506.1001, L100.0100, L500.4100 #### [facility] [address] [place], [address] Urea nitrogen [Mass/Vol] 10 mg/dL Normal 4-19 [facility] Comment on above: Performed By: #### L 500.4050, L501.9520, L506.1001, L100.0100, L500.4100 #### [facility] [address] [place], [address] Eosinophil percentageOrdered By: Umu Altamirano on 12-27-2024 Eosinophils/100 WBC (Bld) 11.0 % High 0-5 [facility] Erythrocyte distribution wid th ratioOrdered By: Umu Evelia on 12-27-2024 Erythrocyte distribution width (RBC) [Ratio] 12.2 % 11.6-14.6 [facility] Erythrocyte distribution wid th standard deviationOrdered By: Umu Altamirano on 12-27-2024 Erythrocyte distribution width (RBC) [Ratio] 39.7 fl 35.1-43.9 [facility] Glomerular filtration rate ( GFR) estimation/1.73 sq m using serum, plasma, or whole bOrdered By: Umu Altamirano on 12-27-2024 GFR/1.73 sq M.predicted among non-blacks MDRD (S/P/Bld) [Vol rate/Area] 120 mL/min/{1.73_m2} >60 [facility] Comment on above: mL/min/1.73m2 CKD-EP I Creatinine Equation (2020) Hematocrit Auto (Bld) [Volum e fraction]Ordered By: Umu Altamirano on 12-27-2024 Hematocrit (Bld) [Volume fraction] 39.1 % 37-47 [facility] Hemoglobin measurementOrdere d By: Umu Altamirano on 12-27-2024 Hemoglobin (Bld) [Mass/Vol] 13.0 g/dL 12.0-15.0 [facility] Immature granulocytes/100 WB C Auto (Bld)Ordered By: Umu Altamirano on 12-27-2024 Immature granulocytes/100 WBC (Bld) 0.200 % 0.0-0.9 [facility] Comment on above: IG% - Immature Granu locytes (promyelocytes, myelocytes and metamyelocytes) > 1% indicates that a LEFT SHIFT is Present. LDL calc ser/plasOrdered By: [facility] Altamirano on 12-27-2024 Cholesterol in LDL [Mass/Vol] 56 mg/dL [facility] Comment on above: Qjhhgyukao=611-759 m g/dL & Higher Qtvz=495 mg/dL or greater Laboratory - Chemistry and C hemistry - challengeOrdered By: [facility] Evelia on 12-27-2024 AST [Catalytic activity/Vol] 16 U/L <32 [facility] Lipid Profileon 12-27-2024 CHOL:HDL 2.34 Normal [facility] Comment on above: Performed By: #### L 500.4050, L501.9520, L506.1001, L100.0100, L500.4100 #### [facility] [address] [place], [place], [address] Cholesterol [Mass/Vol] 119 mg/dL Normal <=200 [facility] Comment on above: Result Comment: Chol esterol level, Desirable <200 mg/dL Borderline high cholesterol 200-239 mg/dL High cholesterol >=240 mg/dL Recommendations of the NCEP Adult Treatment Panel for the following risk-cutoff thresholds for the [place] population. Performed By: #### L 500.4050, L501.9520, L506.1001, L100.0100, L500.4100 #### [facility] [address] [place], [address] Cholesterol in HDL [Mass/Vol] 51 mg/dL Normal [facility] Comment on above: Result Comment: Delmi onal Cholesterol Education Program (NCEP) guidelines: <40 mg/dL: Low HDL-cholesterol (major risk factor for CHD) >= 60 mg/dL: High HDL-cholesterol (negative risk factor for CHD) HDL-cholesterol is affected by a number of factors, e.g. smoking, exercise, hormones, sex and age. Performed By: #### L 500.4050, L501.9520, L506.1001, L100.0100, L500.4100 #### [facility] [address] [place], [address] Cholesterol in LDL [Mass/Vol] 56 mg/dL Normal [facility] Comment on above: Result Comment: Bord pwdoxl=566-929 mg/dL Higher Taop=384 mg/dL or greater Performed By: #### L 500.4050, L501.9520, L506.1001, L100.0100, L500.4100 #### [facility] [address] [place], [address] Cholesterol in VLDL [Mass/Vol] 12 mg/dL Normal 5-40 [facility] Comment on above: Performed By: #### L 500.4050, L501.9520, L506.1001, L100.0100, L500.4100 #### [facility] [address] [place], [address] Triglyceride [Mass/Vol] 62 mg/dL Normal [facility] Comment on above: Result Comment: The drugs N-Acetylcysteine and Metamizole may falsely depress this assay. Normal range: <150 mg/dL Borderline High: 150-199 mg/dL High: 200-499 mg/dL Very High: >500 mg/dL Performed By: #### L 500.4050, L501.9520, L506.1001, L100.0100, L500.4100 #### [facility] [place], [address] MCV (mean corpuscular volume ) determinationOrdered By: Umu Altamirano on 12-27-2024 MCV (RBC) [Entitic vol] 88.7 fL 81-99 [facility] Mean corpuscular hemoglobin (MCH) determinationOrdered By: Umu Altamirano on 12-27-2024 MCH (RBC) [Entitic mass] 29.5 pg 27.0-32.0 [facility] Mean corpuscular hemoglobin concentration (MCHC) determinationOrdered By: Umu Altamirano on 12-27-2024 MCHC (RBC) [Mass/Vol] 33.2 g/dL 32-36 [facility] Mean platelet volume determi nationOrdered By: Umu Altamirano on 12-27-2024 Platelet mean volume (Bld) [Entitic vol] 9.3 fL 6.2-12.0 [facility] Monocyte percentageOrdered B y: Umu Altamirano on 12-27-2024 Monocytes/100 WBC (Bld) 9.1 % 0-10 [facility] Neutrophil percentageOrdered By: Umu Altamirano on 12-27-2024 Neutrophils/100 WBC (Bld) 49.6 % 47-70 [facility] Nucleated red blood cell per centageOrdered By: Umu Altamirano on 12-27-2024 Nucleated RBC/100 WBC (Bld) [Ratio] 0 % 0-5 [facility] Platelet countOrdered By: Magdalena Altamirano on 12-27-2024 Platelets (Bld) [#/Vol] 215 10*3/uL 150-450 [facility] Potassium measurement (mass/ volume)Ordered By: Umu Altamirano on 12-27-2024 Potassium (Unsp spec) [Mass/Vol] 3.9 mmol/L 3.3-5.1 [facility] RBC Auto (Bld) [#/Vol]Ordere d By: Umu Altamirano on 12-27-2024 RBC (Bld) [#/Vol] 4.41 10*6/uL 4.2-5.4 [facility] Screening total cholesterol/ high density lipoprotein (HDL) cholesterol ratioOrdered By: Umu Altamirano on 12-27-2024 Cholesterol.total/Choles terol in HDL [Mass ratio] 2.34 {ratio} [facility] Serum creatinine measurement (mass/volume)Ordered By: Umu Altamirano on 12-27-2024 Creatinine [Mass/Vol] 0.60 mg/dL Low 0.70-1.20 [facility] Serum globulin measurementOr dered By: Umu Altamirano on 12-27-2024 Globulin (S) [Mass/Vol] 2.7 g/dL 2.2-4.2 [facility] Serum glucose measurement (m ass/volume)Ordered By: Umu Altamirano on 12-27-2024 Glucose [Mass/Vol] 80 mg/dL 70-99 [facility] Serum or plasma alanine shankar otransferase (ALT) measurementOrdered By: Umu Altamirano on 12-27-2024 ALT [Catalytic activity/Vol] 14 U/L <35 [facility] Serum or plasma albumin mer urement (mass/volume)Ordered By: Umu Altamirano on 12-27-2024 Albumin [Mass/Vol] 4.2 g/dL 3.5-5.0 [facility] Serum or plasma albumin/glob ulin mass ratioOrdered By: Umu Altamirano on 12-27-2024 Albumin/Globulin [Mass ratio] 1.6 {ratio} 0.9-2.4 [facility] Serum or plasma alkaline eula sphatase measurementOrdered By: Umu Altamirano on 12-27-2024 ALP [Catalytic activity/Vol] 77 U/L 35-104 [facility] Serum or plasma calcium mer urement (mass/volume)Ordered By: Umu Altamirano on 12-27-2024 Calcium [Mass/Vol] 9.0 mg/dL 7.6-11.0 [facility] Serum or plasma cholesterol in HDL measurement (mass/volume)Ordered By: Umu Altamirano on 12-27-2024 Cholesterol in HDL [Mass/Vol] 51 mg/dL >40 [facility] Comment on above: National Cholesterol Education Program (NCEP) guidelines:<40 mg/dL: Low HDL-cholesterol (major risk factor for CHD)>= 60 mg/dL: High HDL-cholesterol (negative risk factor for CHD)HDL-cholesterol is affected by a number of factors, e.g. smoking, exercise, hormones, sex and age. Serum or plasma cholesterol measurement (mass/volume)Ordered By: Umu Altamirano on 12-27-2024 Cholesterol [Mass/Vol] 119 mg/dL <201 [facility] Comment on above: Cholesterol level, D esirable <200 mg/dLBorderline high cholesterol 200-239 mg/dLHigh cholesterol >=240 mg/dLRecommendations of the NCEP Adult Treatment Panel for the following risk-cutoff thresholds for the [place] population. Serum or plasma urea nitroge n measurement (mass/volume)Ordered By: Umu Altamirano on 12-27-2024 Urea nitrogen [Mass/Vol] 10 mg/dL 4-19 [facility] Sodium levelOrdered By: Harshad Altamirano on 12-27-2024 Sodium [Moles/Vol] 138 mmol/L 133-145 [facility] TSH DL <= 0.005 mIU/L QnOrde red By: Umu Altamirano on 12-27-2024 TSH Qn 0.847 uIU/mL 0.300-4.200 [facility] Thyroid Stim Hormone (TSH)on 12-27-2024 TSH 0.847 uIU/mL Normal 0.300-4.200 [facility] Comment on above: Performed By: #### L 500.4050, L501.9520, L506.1001, L100.0100, L500.4100 #### [facility] [address] [place], [place] [address], [address] Total proteinOrdered By: Olya Altamirano on 12-27-2024 Protein [Mass/Vol] 6.9 g/dL 5.9-8.4 [facility] Triglycerides measurementOrd ered By: Umu Altamirano on 12-27-2024 Triglyceride [Mass/Vol] 62 mg/dL <199 [facility] Comment on above: The drugs N-Acetylcy steine and Metamizole may falsely depress this assay. Normal range: <150 mg/dLBorderline High: 150-199 mg/dLHigh: 200-499 mg/dLVery High: >500 mg/dL Vitamin D,25 Hydroxyon 12-27 Vitamin D 25-OH 51.9 ng/mL Normal 30-100 [facility] Comment on above: Result Comment: Danay min D Status Deficiency: <20 ng/mL (50nmol/L) Insufficiency: 20-30 ng/mL (50-75 nmol/L) Sufficiency: 30-100 ng/mL (75-250 nmol/L) Toxicity: >100 ng/mL (>250 nmol/L) Performed By: #### L 500.4050, L501.9520, L506.1001, L100.0100, L500.4100 #### [facility] [address] [facility]. [place], [place], [address] White blood cell (WBC) count Ordered By: Umu Altamirano on 12-27-2024 WBC (Bld) [#/Vol] 6.6 10*3/uL 4.4-11.0 [facility] Chest 1 View (Portable)on Chest 1 View (Portable) [facility] Imaging Services [address] [place] [address] Chest 1 View (Portable) MR#: [id number] Acct: [id number] Name: UZMA GALLEGO Rep #: [id number] : 1990 F 34 From: Jas Mason MD PCP: Dr. Umu Altamirano MD Status: REG ER Study: Chest 1 View (Portable) Date of Exam: 08/03/24 Exam# [id number] Ordering Dr: Figueroa Johnson DO [id number] EXAM: XR CHEST, 1 VIEW CLINICAL INDICATION: cough TECHNIQUE: Frontal view of the chest. COMPARISON: No relevant prior studies available. FINDINGS: LUNGS AND PLEURAL SPACES: Unremarkable. No consolidation or edema. No pneumothorax. No effusion. HEART: Unremarkable. Cardiac silhouette not enlarged. MEDIASTINUM: Central airways and mediastinal contour are unremarkable. BONES/JOINTS: Unremarkable. No acute fracture. SOFT TISSUES: Unremarkable. RAD/Chest 1 View (Portable) IMPRESSION: No radiographic evidence of acute cardiopulmonary disease. Electronically Signed: Jas Mason MD at 23:06 EST , CC: Dr. Umu Altamirano MD; Dr. Figueroa Johnson DO Nurse Ldr: Signed Normal [facility] Emergency Department Summary on 08-03-[address] [facility] Medical Records Department [address] [place] [address] Emergency Department Summary 08/03/24 MR#: [id number] Acct: [id number] Name: UZMA GALLEGO Rep #: [id number] : 1990 34 From: Figueroa Johnson DO PCP: Dr. Umu Altamirano MD Status:DEP ER Location: ED HPI History of Present Illness Chief Complaint: Occup Expose PFSH [facility] Medical History Thyroid disease Home Medications ???Medication ???Instructions ???Recorded ???Last Taken ???Type multivitamin 1 tab PO DAILY 03/30/23 Unknown History levothyroxine 37.5 mcg capsule 75 mcg PO DAILY 05/05/23 Unknown History Allergy/AdvReac Type Severity Reaction Status Date / Time Latex, Natural Rubber Allergy Mild Hives Verified 08/03/24 20:13 nickel Allergy Mild Rash Verified 08/03/24 20:13 povidone-iodine (From Allergy Mild Hives Verified 08/03/24 20:13 Betadine) Seasonal Allergies: Uncoded Allergy Mild Other Verified 08/03/24 20:13 Family History Father Asthma Hypertension PAD (peripheral artery disease) Brother Asthma Grandmother Dementia Thyroid disorder Grandfather Dementia Grandfather Heart disease Father Heart disease Aunt Thyroid disorder Surgical History Hx of rhinoplasty Social History adopted: Yes household members: spouse number of children: 0 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 pets and animals: dog(s) history of recent travel: Yes ([place]) out of state: Yes out of country: No sexually active: Yes Smoking Status: Never smoker alcohol intake: current alcohol intake frequency: a few times a month Alcohol type: hard liquor substance use type: does not use diet: gluten free caffeine: No (stopped 1 month) what type of physical activity do you participate in: walking and weight training seatbelt use: always do you feel safe at home: Yes 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 Physical Exam Const Vital Signs: 08/03/24 20:09 08/03/24 21:39 08/03/24 23:15 Temperature 98 F Temperature Source Temporal Pulse Rate 75 Respiratory Rate 16 Respiratory Effort Normal Non-Labored Normal Non-Labored Respiratory Depth Normal Respiratory Pattern Normal Normal Blood Pressure 126/66 H Blood Pressure Mean 86 Pulse Ox 99 Oxygen Delivery Method Room Air 08/03/24 23:16 Temperature 97.1 F L Temperature Source Pulse Rate 85 Respiratory Rate 18 Respiratory Effort Respiratory Depth Respiratory Pattern Blood Pressure 137/82 H Blood Pressure Mean 100 Pulse Ox 98 Oxygen Delivery Method MDM MDM MDM Narrative Medical decision making narrative: HISTORY OF PRESENT ILLNESS: 34 F here with concern for formaldehyde exposure, complains of eye irritation, SOB, sore throat, cough. This occurred just prior to arrival. She denies any direct exposure provide she was in the same room someone cleaning. REVIEW OF SYSTEMS: Pertinent positives: As per HPI Pertinent negatives: Difficulty swallowing, drooling, visual changes PHYSICAL EXAM: Nursing triage notes reviewed, Vital signs reviewed Constitutional: please see mdm HENT: MMM Eyes: Pupils equal round and reactive to light, Extraocular muscles intact, visual acuity 20/15 bilaterally, no conjunctival injection, visual solitario intact, no signs of mucosal damage Neck: No stridor, no JVD, full neck ROM Lungs: Clear to auscultation, No wheezing or rales. No increased work of breathing, no conversational dyspnea, no accessory muscle use, no nasal flaring. No respiratory distress noted Heart: Regular rate and rhythm, No murmurs, No rubs and No gallops, 2+ distal pulses (radial, femoral, posterior tibial) in all extremities Abdomen: Soft, there is no tenderness, rigidity, rebound or guarding, no obvious peritoneal signs, no palpable pulsatile abdominal masses, no auscultated abdominal bruit : No CVAT Extremities: No edema Neuro: No new focal neurological deficits, cranial nerves II through XII intact, 5/5 strength in all present extremities. Intact sensation to light touch in all present extremities, 2+ reflexes bilateral patella tendons. Skin: No rash or lesions noted MEDICAL DECISION MAKING: Chief Complaint: Chemical exposure External records reviewed: Reviewed prior allergies Factors affecting care: none Social determinants of health: none History obtained from others: none Consults: Poison control : direct exposure could cause eye irritation. recommended decontamination. Avoid re-exposure. WOuld not expect systemic or l (more content not included)... Normal [facility] Ict Security Specialist Office Visit Reporton 05-22-2024 Ict Security Specialist Office Visit Report [facility] [address], [address] [place] [address] OFFICE VISIT Date of Service: 05/22/24 MR#: [id number] Acct: [id number] Name: UZMA GALLEGO Rep #: [id number] : 1990 Provider: BROOKE jerez Age/Sex: 34/F Location: [facility] Status: Signed Intake Vital Signs 07/08/23 12:23 03/20/24 13:32 05/22/24 15:10 05/22/24 15:17 Height 5 ft 3 in 5 ft 3 in 5 ft 3 in 5 ft 3 in Weight: 122 lb 2 oz BMI 21.6 BP 108/64 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 Required: No Is patient in pain?: No Allergies Latex, Natural Rubber Allergy (Mild, Verified 03/20/24 13:34) Hives nickel Allergy (Mild, Verified 03/20/24 13:34) Rash povidone-iodine (From Betadine) Allergy (Mild, Verified 03/20/24 13:34) Hives Seasonal Allergies: Uncoded Allergy (Mild, Verified 03/20/24 13:34) Other Medications ???Medication ???Instructions ???Recorded ???Confirmed ???Type multivitamin 1 tab PO DAILY 03/30/23 05/22/24 History levothyroxine 37.5 mcg capsule 75 mcg PO DAILY 05/05/23 05/22/24 History Is last menstrual period known: Yes Last Menstrual Period: 05/04/24 Post menopausal: No Patient : No : No PFSH Medical History (Updated 05/22/24 @ 15:34 by Pina Babcock NP, FISH PROCESSOR-C) Thyroid disease Surgical History Hx of rhinoplasty Family History Father Asthma Hypertension PAD (peripheral artery disease) Brother Asthma Grandmother Dementia Thyroid disorder Grandfather Dementia Grandfather Heart disease Father Heart disease Aunt Thyroid disorder Social History adopted: Yes household members: spouse number of children: 0 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 pets and animals: dog(s) history of recent travel: Yes ([place]) out of state: Yes out of country: No sexually active: Yes Smoking Status: Never smoker alcohol intake: current alcohol intake frequency: a few times a month Alcohol type: hard liquor substance use type: does not use diet: gluten free caffeine: No (stopped 1 month) what type of physical activity do you participate in: walking and weight training seatbelt use: always do you feel safe at home: Yes 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 Denies concerns. Jail unexplained infertility. Has failed clomid and letrozole. All labs, HSG WNL. Saw RGI. Declines further intervention Last PAP: 2022 History of abnormal PAP: no Last mammogram: age 35-40 Other preventative health care screenings: Evelia Female Reproductive History Last Menstrual Period: 05/04/24 Cycle Length: 21-35 Bleeding Duration: 2 Questions: metorrhagia: No, sexually active: Yes, dyspareunia: No and PCB: No ROS Const Constitutional: Denies fatigue, weight gain or weight loss Cardio Card: Denies chest pain Resp Resp: Denies cough or dyspnea on exertion GI GI: Denies abdominal pain, bloating, change in stool character, constipation or vomiting : Reports as per HPI; Denies difficulty voiding, pelvic pain, urinary frequency, urinary incontinence, urinary urgency, vaginal discharge or vaginal pruritus Exam Const General: cooperative, healthy appearing, no acute distress and well developed Orientation: alert, oriented to person and oriented to place [facility] Head: normal to inspection Neck Neck: normal visual inspection Thyroid: thyroid normal Lymphatic: no lymphadenopathy noted Chest Breast inspection: normal inspection of the breasts and normal inspection of the axillae Breast palpation: normal palpation of the breasts, normal palpation of the axillae and no axillary lymphadenopathy Resp Effort Inspection: normal respiratory effort GI Palpation: soft, no masses and nontender Rectal Exam: deferred External Female Exam: normal external appearance and normal appearance of the urethra Urethra: normal appearance of the urethra and normal palpation Speculum Exam - Vagina: normal appearance of the vagina and normal vaginal discharge Speculum Exam - Cervix: normal appearance of the cervix Bimanual Exam- Vagina Uterus: normal bimanual exam, uterine size normal, uterine shape normal and non-tender Bimanual Exam- Adnexa, other: normal adnexae, no masses, normal and non-tender Pelvi (more content not included)... Normal [facility] Emergency Department Summary on 03-20-2024 Emergency Department Summary [facility] Medical Records Department [address] [place] [address] Emergency Department Summary 03/20/24 MR#: [id number] Acct: [id number] Name: UZMA GALLEGO Rep #: [id number] : 1990 34 From: Patrick Montiel PCP: Dr. Umu Altamirano MD Status:REG ER Location: ED HPI History of Present Illness Chief Complaint: Occup Expose Informant: patient Narrative Narrative: Presents needlestick left middle finger. Play here. States blood was being transferred into the tube, she is recapping it when she got punctured. Swallowed needle. She had blood splashed in her eye previously. No needlesticks in the past. Tetanus up-to-date. She had her hepatitis A and B vaccinations. Source patient being tested in the field however no known HIV history. Tetanus Immunization: <5 years Prior similar symptoms: No PFSH PFSH Medical History COVID-19 Thyroid disease Home Medications ???Medication ???Instructions ???Recorded ???Last Taken ???Type multivitamin 1 tab PO DAILY 03/30/23 Unknown History levothyroxine 37.5 mcg capsule 75 mcg PO DAILY 05/05/23 Unknown History letrozole 2.5 mg tablet 2.5 mg PO DAILY 5 days #5 tabs 08/29/23 Unknown Rx Allergy/AdvReac Type Severity Reaction Status Date / Time Latex, Natural Rubber Allergy Mild Hives Verified 03/20/24 13:34 nickel Allergy Mild Rash Verified 03/20/24 13:34 povidone-iodine (From Allergy Mild Hives Verified 03/20/24 13:34 Betadine) Seasonal Allergies: Uncoded Allergy Mild Other Verified 03/20/24 13:34 Family History Father Asthma Hypertension PAD (peripheral artery disease) Brother Asthma Grandmother Dementia Thyroid disorder Grandfather Dementia Grandfather Heart disease Father Heart disease Aunt Thyroid disorder Surgical History Hx of rhinoplasty Social History adopted: Yes household members: spouse number of children: 0 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 pets and animals: dog(s) history of recent travel: Yes ([place]) out of state: Yes out of country: No sexually active: Yes Smoking Status: Never smoker alcohol intake: current alcohol intake frequency: a few times a month Alcohol type: hard liquor substance use type: does not use diet: gluten free caffeine: No (stopped 1 month) what type of physical activity do you participate in: walking and weight training seatbelt use: always do you feel safe at home: Yes 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 ROS ED Constitutional Constitutional ED: Denies fever(s) Cardiovascular Cardiovascular: Denies chest pain Respiratory/Chest Respiratory/Chest: Denies cough Gastrointestinal Gastrointestinal: Denies abdominal pain Musculoskeletal Musculoskeletal: Reports other Details: Puncture left middle finger Integumentary Reports wounds; Denies rash Neurologic Neurologic: Denies paresthesias EXAM Physical Exam Const Vital Signs: 03/20/24 13:32 Temperature 97.4 F L Temperature Source Temporal Pulse Rate 72 Respiratory Rate 16 Blood Pressure 104/67 Blood Pressure Mean 79 Pulse Ox 100 Oxygen Delivery Method Room Air Positive well nourished and well developed General Appearance ED: well developed and NAD HEENT Reports moist mucous membranes normocephalic Eyes General Eye ED: Yes normal appearance of both eyes Neck full ROM Resp normal respiratory effort and normal air movement Effort and Inspection: symmetric chest movement; Negative for respiratory distress Cardio regular rate, regular rhythm and no murmurs Peripheral Pulses: pulses 2+ throughout GI normal to inspection, nondistended, normoactive bowel sounds and non-tender Palpation: Negative for guarding or rebound tenderness present Back/Spine no CVA tenderness and no thoracic nor lumbar tenderness Extremity normal to inspection General Extremety ED: Negative for edema or tenderness General Extremity: Negative for edema Neuro oriented x3 and no sensory deficits noted Sensorium / Orientation: awake and alert Skin Skin Narrative: No clear puncture wound seen distal tip of middle finger on the left. There is slight callus formation at the tip. No drainage no erythema. MDM MDM MDM Narrative Medical decision making narrative: Interventions / MDM: Differential diagnosis: Needlestick left middle finger Diagnosis considered but do not suspect: N/A My EKG interpretation: N/A Imaging independently reviewed and interpreted by myself: N/A External documents reviewed: N/A Test considered but not ordered:N/A ED cour (more content not included)... Normal [facility] HIV - WCHon 03-20-2024 HIV Non-Reactive Normal Nonreactive [facility] Comment on above: Order Comment: Has p t arrived? Y Reason for Exam: ED Expose Person Protocol Performed By: #### L 3890.6100, L3890.6300, L3890.6200, L3890.6005 #### [facility] Laboratory [facility] [place], [address] Hepatitis B Surface Antibody on 03-20-2024 HEP B Surf Ab Reactive Normal [facility] Comment on above: Order Comment: Has p t arrived? YReason for Exam: ED Expose Person Protocol Result Comment: Non Reactive: Inconsistent with immunity less than <10 mIU/mL Reactive: Consistent with immunity greater than or equal to 10 mIU/mL Performed By: #### L [id number], L3890.6300, [id number], L3890.6005 ####[facility] [id number] [place], [place], [id number] Hepatitis B Surface Antigeno n 03-20-2024 HEP B Surf Ag Non-Reactive Normal Nonreactive [facility] Comment on above: Order Comment: Has p t arrived? YReason for Exam: ED Expose Person Protocol Performed By: #### L [id number], [id number], [id number], L3890.6005 ####[facility] [id number] [place], [place], [id number] Hepatitis C Antibodyon 03-20 Hepatitis C AB Non-Reactive Normal Nonreactive [facility] Comment on above: Order Comment: Has p t arrived? YReason for Exam: ED Expose Person Protocol Result Comment: Non Reactive: < 0.8 Equivocal: >/= 0.8 to < 1.0 Reactive: >/= 1.0 The CDC requires that a reactive/equivocal HCV antibody result be sent out for confirmation. HCV Quant by PCR testing. Performed By: #### L [id number], [id number], [id number], L3890.6005 ####[facility] [id number] [place], [place], [id number] Culture, urineOrdered By: Micaela Houser on 12-03-2023 Bacteria identified Cx Nom (U) Presumptive E. coli [facility] Laboratory - Chemistry and C hemistry - challengeon 12-03-2023 Bilirubin Ql (U) Negative [facility] Glucose Ql (U) Negative [facility] HCG ( test) Ql (U) Negative [facility] Ketones Ql (U) Negative [facility] pH (U) 6.5 [pH] [facility] Specific gravity (U) [Rel density] 1.005 [facility] Urobilinogen (U) [Mass/Vol] Negative [facility] Laboratory - Hematology and Cell countson 12-03-2023 Hemoglobin Ql (U) Small [facility] Laboratory - Specimen inform ationon 12-03-2023 Clarity (U) Clear [facility] Color (U) YELLOW [facility] Laboratory - Urinalysison Nitrite Ql (U) Negative [facility] Protein Ql (U) Negative [facility] No Panel Informationon 12-02 Urine Leukocytes Positive [facility] Urine Non-Hemolyzed Blood [facility] Absolute lymphocyte countOrd ered By: HEALTH ASSESSMENT on 11-16-2023 Lymphocytes Auto (Unsp spec) [#/Vol] 2.25 10*3/uL 0.83-4.51 [facility] Basophil percentageOrdered B y: HEALTH ASSESSMENT on 11-16-2023 Basophil percentage 3.4 mg/dL 2.5-4.9 [facility] Bilirubin [Mass/Vol] 0.40 mg/dL 0.20-1.00 [facility] Comment on above: For patients on eltr ombopag therapy, use of Dimension Corinne TBIL is not recommended. Chloride [Moles/Vol] 109 mmol/L 98-107 [facility] Cholesterol [Mass/Vol] 107 mg/dL <200 [facility] Comment on above: <200 mg/dL Desirable 200-240 mg/dL Borderline >240 mg/dL High Risk Glucose [Mass/Vol] 91 mg/dL 74-106 [facility] Hemoglobin (Bld) [Mass/Vol] 13.1 g/dL 12.0-15.0 [facility] LDH [Catalytic activity/Vol] 139 U/L 84-246 [facility] Neutrophils (Bld) [#/Vol] 3.8 10*3/uL 2.0-7.7 [facility] Potassium [Moles/Vol] 3.8 mmol/L 3.5-5.1 [facility] Protein [Mass/Vol] 6.8 g/dL 6.4-8.2 [facility] Sodium [Moles/Vol] 139 mmol/L 136-145 [facility] Triglyceride [Mass/Vol] 38 mg/dL <199 [facility] Comment on above: The drugs N-Acetylcy steine and Metamizole may falsely depress this assay.Serum Triglycerides Reference Interval Normal <150 mg/dL Borderline high 150 - 199 mg/dL High 200 - 499 mg/dL Very High > or = 500 mg/dL WBC (Bld) [#/Vol] 7.1 10*3/uL 4.4-11.0 [facility] Blood band neutrophil count as percentage of total leukocytesOrdered By: HEALTH ASSESSMENT on 11-16-2023 Band form neutrophils/100 WBC (Bld) 54.0 % 47-70 [facility] Determination of erythrocyte mean corpuscular volume (MCV)Ordered By: HEALTH ASSESSMENT on 11-16-2023 MCV (RBC) [Entitic vol] 88.3 fL 81-99 [facility] Direct bilirubinOrdered By: HEALTH ASSESSMENT on 11-16-2023 Bilirubin.direct [Mass/Vol] 0.14 mg/dL 0.00-0.30 [facility] Erythrocyte distribution wid th ratioOrdered By: HEALTH ASSESSMENT on 11-16-2023 Erythrocyte distribution width (RBC) [Ratio] 11.9 % 11.6-14.6 [facility] Erythrocyte distribution wid th standard deviationOrdered By: HEALTH ASSESSMENT on 11-16-2023 Erythrocyte distribution width (RBC) [Entitic vol] 38.4 fL 35.1-43.9 [facility] Hematocrit Auto (Bld) [Volum e fraction]Ordered By: HEALTH ASSESSMENT on 11-16-2023 Hematocrit (Bld) [Volume fraction] 39.4 % 37-47 [facility] Laboratory - Chemistry and C hemistry - challengeOrdered By: HEALTH ASSESSMENT on 11-16-2023 Albumin/Globulin [Mass ratio] 1.1 {ratio} 0.9-2.4 [facility] ALP [Catalytic activity/Vol] 75 U/L 45-117 [facility] ALT [Catalytic activity/Vol] 21 U/L 13-56 [facility] Cholesterol in HDL [Mass/Vol] 49 mg/dL >40 [facility] Comment on above: The drugs N-Acetylcy steine and Metamizole may falsely depress this assay. Reference Range HDL <40 mg/dL Low HDL Cholesterol HDL >or= 60 mg/dL High HDL Cholesterol Cholesterol in LDL [Mass/Vol] 50 mg/dL 0-130 [facility] Cholesterol.total/Choles terol in HDL [Mass ratio] 2.20 {ratio} [facility] CO2 [Moles/Vol] 25.0 mmol/L 21.0-32.0 [facility] Globulin (S) [Mass/Vol] 3.3 g/dL 2.2-4.2 [facility] Urea nitrogen/Creatinine [Mass ratio] 14.5 mg/mg 10-20 [facility] Laboratory - Hematology and Cell countsOrdered By: HEALTH ASSESSMENT on 11-16-2023 MCH (RBC) [Entitic mass] 29.4 pg 27.0-32.0 [facility] MCHC (RBC) [Mass/Vol] 33.2 g/dL 32-36 [facility] Nucleated RBC (Bld) [#/Vol] 0.00 10*3/uL 0-5 [facility] Nucleated RBC/100 WBC (Bld) [Ratio] 0 % 0-5 [facility] Platelet mean volume (Bld) [Entitic vol] 9.3 fL 6.2-12.0 [facility] Platelets (Bld) [#/Vol] 214 10*3/uL 150-450 [facility] No Panel InformationOrdered By: HEALTH ASSESSMENT on 11-16-2023 Estimated GFR (MDRD) Amer 125 mL/min >60 [facility] Comment on above: GFR Calc Estimated GFR (MDRD) Non-Af Amer 103 mL/min >60 [facility] Comment on above: Non- GFR Calc VLDL Cholesterol 8 mg/dL 5-40 [facility] RBC Auto (Bld) [#/Vol]Ordere d By: HEALTH ASSESSMENT on 11-16-2023 RBC (Bld) [#/Vol] 4.46 10*6/uL 4.2-5.4 [facility] Serum or plasma calcium mer urement (mass/volume)Ordered By: HEALTH ASSESSMENT on 11-16-2023 Calcium [Mass/Vol] 8.6 mg/dL 8.5-10.1 [facility] Serum or plasma creatinine m easurement (mass/volume)Ordered By: HEALTH ASSESSMENT on 11-16-2023 Creatinine [Mass/Vol] 0.69 mg/dL 0.55-1.02 [facility] Comment on above: The validity of the calculated GFR & GFRAA in patients over 70 years has not been determined. Clinical correlation is essential. Serum or plasma thyroid stim ulating hormone (TSH) measurement (units/volume)Ordered By: Katie No on 11-16-2023 TSH Qn 1.58 uIU/mL 0.358-3.74 [facility] Serum or plasma urea nitroge n measurement (mass/volume)Ordered By: HEALTH ASSESSMENT on 11-16-2023 Urea nitrogen [Mass/Vol] 10 mg/dL 7-18 [facility] Serum or plasma uric acid me asurement (mass/volume)Ordered By: HEALTH ASSESSMENT on 11-16-2023 Urate [Mass/Vol] 3.8 mg/dL 2.6-6.0 [facility] Comment on above: The drugs N-Acetylcy steine and Metamizole may falsely depress this assay. Thin prep Papanicolaou smear with manual screeningOrdered By: HEALTH ASSESSMENT on 11-16-2023 Thin prep Papanicolaou smear with manual screening 3.5 g/dL 3.2-5.0 [facility] Thin prep Papanicolaou smear with manual screening 11 U/L 15-37 [facility] Thin prep Papanicolaou smear with manual screening 5 5-15 [facility] Cervical or vagninal specime n microscopic examination by cytology stain (reported asOrdered By: Mag Avila on 05-05-2023 Cytology report Cyto stain Doc (Cvx/Vag) Comment . [facility] Comment on above: The Pap smear is a s creening test designed to aid in thedetection of premalignant and malignant conditions of theuterine cervix. It is not a diagnostic procedure andshould not be used as the sole means of detecting cervicalcancer. Both false-positive and false-negative reports dooccur. Detection in cervical specim en of any of human papilloma virus (HPV) 16, 18, 31, 33,Ordered By: Mag Avila on 05-05-2023 HPV 16+18+31+33+35+39+45+51+ 52+56+58+59+66+68 DNA Probe+sig amp Ql (Cvx) Negative Negative [facility] Comment on above: This nucleic acid am plification test detects fourteen high-risk HPV types (16,18,31,33,35,39,45,51,52,56,58,59,66,68)without differentiation. Laboratory - CytologyOrdered By: Mag Avila on 05-05-2023 Nut Cracker Cyto stain Nom (Cvx/Vag) [ID] Comment . [facility] Comment on above: Amos Morley, Tomographic Tech (ASCP) Laboratory - Miscellaneous t estsOrdered By: Mag Avila on 05-05-2023 Service comment (Unsp spec) [Interp] Comment . [facility] Comment on above: This liquid based Th inPrep(R) pap test was screened withthe use of an image guided system. Service comment (Unsp spec) [Interp] . . [facility] Liquid-based cerv Pap + CT/G C by BECCA w reflex to high-risk HPV for ASCUSOrdered By: Mag Avila on 05-05-2023 Cytology report Cyto stain.thin prep Doc (Cvx/Vag) Comment . [facility] Comment on above: Criteria not met, HP V Genotype not performed.Performed at: [facility] - [facility] [address] [id number] Director: Ghada Aguirre MD, Phone: [phone] at: =G - [facility] [address] [id number] Director: Ghada Aguirre MD, Phone: [phone] No Panel InformationOrdered By: Mag Avila on 05-05-2023 Pap Smear QC Review Comment . [facility] Comment on above: Michelle Santoro, Cyto technologist Pathology report final diagnosis Narrative Comment . [facility] Comment on above: NEGATIVE FOR INTRAEP ITHELIAL LESION OR MALIGNANCY.THIS SPECIMEN WAS RESCREENED PART OF OUR [facility]END[facility] IN[facility]UTION PROGRAM. Chocolate RASTOrdered By: Rubens No on 05-03-2023 Chocolate IgE Qn (S) <0.10 kU/L Class 0 [facility] Laboratory - Chemistry and C hemistry - challengeOrdered By: Katie No on 05-03-2023 Free T4 [Mass/Vol] 1.43 ng/dL 0.76-1.46 [facility] Laboratory - Miscellaneous t estsOrdered By: Katie No on 05-03-2023 Service comment (Unsp spec) [Interp] Comment . [facility] Comment on above: Levels of Specific I gE Class Description of Class ----- < 0.10 0 Negative 0.10 - 0.31 0/I Equivocal/Low 0.32 - 0.55 I Low 0.56 - 1.40 II Moderate 1.41 - 3.90 III High 3.91 - 19.00 IV Very High 19.01 - 100.00 V Very High >100.00 [facility] No Panel InformationOrdered By: Katie No on 05-03-2023 Free Triiodothyronine (T3) pg/dL 2.6 pg/mL 2.18-3.98 [facility] Mussel Allergen IgE Antibody <0.10 kU/L Class 0 [facility] Shrimp Allergen <0.10 kU/L Class 0 [facility] Thyroid Stimulating Hormone (TSH) 0.38 uIU/mL 0.358-3.74 [facility] Serum beef IgE antibody assa y (units/volume)Ordered By: Katie No on 05-03-2023 Beef IgE Qn (S) <0.10 kU/L Class 0 [facility] Serum codfish IgE antibody a ssay (units/volume)Ordered By: Katie No on 05-03-2023 Codfish IgE Qn (S) <0.10 kU/L Class 0 [facility] Serum corn IgE antibody assa y (units/volume)Ordered By: Katie No on 05-03-2023 Adrian IgE Qn (S) <0.10 kU/L Class 0 [facility] Serum cow milk IgE antibody assay (units/volume)Ordered By: Katie No on 05-03-2023 Cow milk IgE Qn (S) <0.10 kU/L Class 0 [facility] Serum or plasma ferritin bassam surement (mass/volume)Ordered By: Katie No on 05-03-2023 Ferritin [Mass/Vol] 75 ng/mL 8-252 [facility] Serum peanut IgE antibody as say (units/volume)Ordered By: Katie No on 05-03-2023 Peanut IgE Qn (S) <0.10 kU/L Class 0 [facility] Serum pork IgE antibody assa y (units/volume)Ordered By: Katie No on 05-03-2023 Pork IgE Qn (S) <0.10 kU/L Class 0 [facility] Serum salmon IgE antibody as say (units/volume)Ordered By: Katie No on 05-03-2023 Cantril IgE Qn (S) <0.10 kU/L Class 0 [facility] Serum soybean IgE antibody a ssay (units/volume)Ordered By: Katie No on 05-03-2023 Soybean IgE Qn (S) <0.10 kU/L Class 0 [facility] Serum tuna IgE antibody assa y (units/volume)Ordered By: Katie No on 05-03-2023 Tuna IgE Qn (S) <0.10 kU/L Class 0 [facility] Serum wheat IgE antibody ass ay (units/volume)Ordered By: Katie No on 05-03-2023 Wheat IgE Qn (S) <0.10 kU/L Class 0 [facility] Serum whole egg IgE antibody assay (units/volume)Ordered By: Katie No on 05-03-2023 Whole Egg IgE Qn (S) <0.10 kU/L Class 0 [facility] Laboratory - Microbiology an d Antimicrobial susceptibilityon 03-30-2023 SARS-CoV-2 (COVID-19) RNA BECCA+probe Ql (Unsp spec) Detected [facility] No Panel Informationon 03-30 POC Nasal Swab Influenza A,B Not detected [facility] POC Nasal Swab RSV Not detected [facility] Laboratory - Chemistry and C hemistry - challengeOrdered By: Katie No on 03-11-2023 Free T4 [Mass/Vol] 1.31 ng/dL 0.76-1.46 [facility] No Panel InformationOrdered By: Katie No on 03-11-2023 Thyroid Stimulating Hormone (TSH) 2.59 uIU/mL 0.358-3.74 [facility] Laboratory - Chemistry and C hemistry - challengeOrdered By: Katie No on 01-26-2023 Free T4 [Mass/Vol] 1.01 ng/dL 0.76-1.46 [facility] No Panel InformationOrdered By: Katie No on 01-26-2023 Thyroid Stimulating Hormone (TSH) 4.38 uIU/mL 0.358-3.74 [facility] Absolute lymphocyte countOrd ered By: Katie No on 12-10-2022 Lymphocytes Auto (Unsp spec) [#/Vol] 2.10 10*3/uL 0.83-4.51 [facility] Basophil percentageOrdered B y: Katie Bonillanger on 12-10-2022 Basophils/100 WBC (Bld) 0.6 % 0-1 [facility] Bilirubin [Mass/Vol] 0.70 mg/dL 0.20-1.00 [facility] Comment on above: For patients on eltr ombopag therapy, use of Dimension Corinne TBIL is not recommended. Chloride [Moles/Vol] 107 mmol/L 98-107 [facility] Cholesterol [Mass/Vol] 105 mg/dL <200 [facility] Comment on above: <200 mg/dL Desirable 200-240 mg/dL Borderline >240 mg/dL High Risk Eosinophils/100 WBC (Bld) 6.1 % 0-5 [facility] Glucose [Mass/Vol] 82 mg/dL 74-106 [facility] Neutrophils (Bld) [#/Vol] 4.7 10*3/uL 2.0-7.7 [facility] Neutrophils/100 WBC (Bld) 58.8 % 47-70 [facility] Potassium [Moles/Vol] 3.8 mmol/L 3.5-5.1 [facility] Protein [Mass/Vol] 7.3 g/dL 6.4-8.2 [facility] Sodium [Moles/Vol] 139 mmol/L 136-145 [facility] Triglyceride [Mass/Vol] 39 mg/dL <199 [facility] Comment on above: The drugs N-Acetylcy steine and Metamizole may falsely depress this assay.Serum Triglycerides Reference Interval Normal <150 mg/dL Borderline high 150 - 199 mg/dL High 200 - 499 mg/dL Very High > or = 500 mg/dL WBC (Bld) [#/Vol] 8.0 10*3/uL 4.4-11.0 [facility] Blood erythrocytes count (nu mber/volume)Ordered By: Katei No on 12-10-2022 RBC (Bld) [#/Vol] 4.55 10*6/uL 4.2-5.4 [facility] Blood hemoglobin measurement (mass/volume)Ordered By: Katie oN on 12-10-2022 Hemoglobin (Bld) [Mass/Vol] 13.3 g/dL 12.0-15.0 [facility] Blood lymphocytes/100 leukoc ytesOrdered By: Katie No on 12-10-2022 Lymphocytes/100 WBC (Bld) 26.2 % 19-41 [facility] Blood monocytes/100 leukocyt esOrdered By: Katie No on 12-10-2022 Monocytes/100 WBC (Bld) 7.9 % 0-10 [facility] Blood platelet mean volumeOr dered By: Katie No on 12-10-2022 Platelet mean volume (Bld) [Entitic vol] 9.4 fL 6.2-12.0 [facility] Determination of erythrocyte mean corpuscular volume (MCV)Ordered By: Katie No on 12-10-2022 MCV (RBC) [Entitic vol] 90.5 fL 81-99 [facility] Hematocrit Auto (Bld) [Volum e fraction]Ordered By: Katie No on 12-10-2022 Hematocrit (Bld) [Volume fraction] 41.2 % 37-47 [facility] Laboratory - Chemistry and C hemistry - challengeOrdered By: Katie No on 12-10-2022 ALP [Catalytic activity/Vol] 73 U/L 45-117 [facility] ALT [Catalytic activity/Vol] 25 U/L 13-56 [facility] CO2 [Moles/Vol] 26.0 mmol/L 21.0-32.0 [facility] Cobalamin (Vitamin B12) [Mass/Vol] 491 pg/mL 211-911 [facility] Free T4 [Mass/Vol] 1.16 ng/dL 0.76-1.46 [facility] Globulin (S) [Mass/Vol] 3.6 g/dL 2.2-4.2 [facility] Urea nitrogen/Creatinine [Mass ratio] 17.9 mg/mg 10-20 [facility] Laboratory - Hematology and Cell countsOrdered By: Katie No on 12-10-2022 Erythrocyte distribution width (RBC) [Entitic vol] 39.4 fL 35.1-43.9 [facility] Erythrocyte distribution width (RBC) [Ratio] 11.8 % 11.6-14.6 [facility] Immature granulocytes/100 WBC (Bld) 0.400 % 0.0-0.9 [facility] Comment on above: IG% - Immature Granu locytes (promyelocytes, myelocytes and metamyelocytes) > 1% indicates that a LEFT SHIFT is Present. MCH (RBC) [Entitic mass] 29.2 pg 27.0-32.0 [facility] Nucleated RBC/100 WBC (Bld) [Ratio] 0 % 0-5 [facility] MCHC Auto (RBC) [Mass/Vol]Or dered By: Katie No on 12-10-2022 MCHC (RBC) [Mass/Vol] 32.3 g/dL 32-36 [facility] No Panel InformationOrdered By: Katie No on 12-10-2022 Endomysial IgA Antibody Negative Negative [facility] Estimated GFR (MDRD) Amer 118 mL/min >60 [facility] Comment on above: GFR Calc Estimated GFR (MDRD) Non-Af Amer 98 mL/min >60 [facility] Comment on above: Non- GFR Calc Free Triiodothyronine (T3) pg/dL 2.5 pg/mL 2.18-3.98 [facility] Thyroid Stimulating Hormone (TSH) 3.60 uIU/mL 0.358-3.74 [facility] Vitamin D 25-Hydroxy 40.8 ng/mL [facility] Comment on above: Vitamin D 25(OH) Sta tus Range Deficiency <20 ng/mL (50nmol/L) Insufficiency 20 - 30 ng/mL (50 - 75 nmol/L) Sufficiency 30 - 100 ng/mL (75 - 250 nmol/L) Toxicity >100 ng/mL (>250 nmol/L) Platelets bldOrdered By: Umberto No on 12-10-2022 Platelets (Bld) [#/Vol] 231 10*3/uL 150-450 [facility] Serum IgA measurement (units /volume)Ordered By: Katie No on 12-10-2022 IgA Qn (S) 168 mg/dL 87-352 [facility] Serum or plasma albumin mer urement (mass/volume)Ordered By: Katie No on 12-10-2022 Albumin [Mass/Vol] 3.7 g/dL 3.2-5.0 [facility] Serum or plasma albumin/glob ulin mass ratioOrdered By: Katie No on 12-10-2022 Albumin/Globulin [Mass ratio] 1.0 {ratio} 0.9-2.4 [facility] Serum or plasma calcium mer urement (mass/volume)Ordered By: Katie No on 12-10-2022 Calcium [Mass/Vol] 8.8 mg/dL 8.5-10.1 [facility] Serum or plasma cholesterol in HDL measurement (mass/volume)Ordered By: Katie No on 12-10-2022 Cholesterol in HDL [Mass/Vol] 56 mg/dL >40 [facility] Comment on above: The drugs N-Acetylcy steine and Metamizole may falsely depress this assay. Reference Range HDL <40 mg/dL Low HDL Cholesterol HDL >or= 60 mg/dL High HDL Cholesterol Serum or plasma cholesterol in VLDL measurement (mass/volume)Ordered By: Katie No on 12-10-2022 Cholesterol in VLDL [Mass/Vol] 8 mg/dL 5-40 [facility] Serum or plasma creatinine m easurement (mass/volume)Ordered By: Katie No on 12-10-2022 Creatinine [Mass/Vol] 0.72 mg/dL 0.55-1.02 [facility] Comment on above: The validity of the calculated GFR & GFRAA in patients over 70 years has not been determined. Clinical correlation is essential. Serum or plasma low density lipoprotein (LDL) cholesterol measurement (mass/volume)Ordered By: Katie No on 12-10-2022 Cholesterol in LDL [Mass/Vol] 41 mg/dL 0-130 [facility] Serum or plasma thyroperoxid ase antibody assay (units/volume)Ordered By: Katie No on 12-10-2022 TPO Ab Qn 360 [IU]/mL 0-34 [facility] Comment on above: Performed at: [facility] [address] [id number] Director: Jak Nieves MD, Phone: [phone] at: [address] [id number] Director: Delano Garcia PhD, Phone: [phone] Serum or plasma urea nitroge n measurement (mass/volume)Ordered By: Katie No on 12-10-2022 Urea nitrogen [Mass/Vol] 13 mg/dL 7-18 [facility] Serum tissue transglutaminas e IgA antibody assay (units/volume)Ordered By: Katie No on 12-10-2022 tTG IgA Qn (S) <2 U/mL 0-3 [facility] Comment on above: Negative 0 - 3 Weak Positive 4 - 10 Positive >10 Tissue Transglutaminase (tTG) has been identified as the endomysial antigen. Studies have demonstr- ated that endomysial IgA antibodies have over 99% specificity for gluten sensitive enteropathy. Thin prep Papanicolaou smear with manual screeningOrdered By: Katie No on 12-10-2022 Thin prep Papanicolaou smear with manual screening 17 U/L 15-37 [facility] Thin prep Papanicolaou smear with manual screening 6 5-15 [facility] Thyroid stimulating immunogl obulins detectionOrdered By: Katie No on 12-10-2022 Thyroid stimulating immunoglobulins Ql (S) <0.10 IU/L 0.00-0.55 [facility] Whole blood hemoglobin A1c/t otal hemoglobin ratio (mass fraction)Ordered By: Katie No on 12-10-2022 HbA1c (Bld) [Mass fraction] 4.8 % 3.8-5.6 [facility] Comment on above: Normal < 5.7 % Predi abetic 5.7 - 6.4 % Diabetic >or= 6.5 % Please note range changes. C trach+GC DNA Ur Ql BECCA+pro beon 08-15-2022 C. trachomatis+N. gonorrhoeae DNA BECCA+probe Ql (U) GC AMPLIFICATION: Negative for Neisseria gonorrhoeae by amplification CHLAMYDIA AMPLIFICATION: Negative for Chlamydia trachomatis by amplification Normal [facility] Comment on above: Performed By: #### 4 4806-8 ####[facility] [id number] [address] STATES OF [facility] HBV core Ab Ser Qlon 023 HBV core Ab Ql (S) Negative Normal Negative [facility] Comment on above: Order Comment: Speci men Type: BLOOD SPECIMENOrdering Facility: [facility] Address: [address] [place] [address] Result Comment: No e vidence of current or past infection with Hepatitis B virus. Should recent infection be suspected, repeat testing may be considered 3-4 weeks after this draw. Performed By: #### 1 6933-4, 65530-6, 5195-3, 70014-7 ####[facility] LABIA [id number] [address] OF [facility] HBV surface Ag Ser Qlon 08-02 HBV surface Ag Ql (S) Negative Normal Negative [facility] Comment on above: Order Comment: Speci men Type: BLOOD SPECIMENOrdering Facility: [facility] Address: [address] [place] [address] Performed By: #### 1 6933-4, 71418-8, 5195-3, 15481-3 ####[facility] [id number] [address] OF [facility] HCV Ab Ser Qlon 08-15-2022 HCV Ab Ql (S) Negative Normal Negative [facility] Comment on above: Order Comment: Speci men Type: BLOOD SPECIMENOrdering Facility: [facility] Address: [address] [place] [address] Result Comment: The result suggests no evidence of active infection with Hepatitis C virus. Should recent infection be suspected, repeat testing may be considered 4-6 weeks after this draw. Performed By: #### 1 6128-1 ####[facility] LABIA [id number] [address] OF [facility] HIV 1+2 Ab IA Qlon 3 HIV 1 and 2 Ab IA.rapid Nom Normal [facility] Comment on above: Order Comment: Speci men Type: BLOOD SPECIMENOrdering Facility: [facility] Address: [address] [place] [address] Result Comment: Test not indicated. Performed By: #### 1 6933-4, 90329-8, 5195-3, 99074-6 ####[facility] [id number] [address] HIV 1+2 Ab+HIV1 p24 Ag IA Ql Non-Reactive Normal Nonreactive [facility] Comment on above: Order Comment: Speci men Type: BLOOD SPECIMENOrdering Facility: [facility] Address: [address] [place] [address] Performed By: #### 1 6933-4, 05308-6, 5195-3, 90224-0 ####[facility] [id number] [address] OF [facility] HIVINT Normal [facility] Comment on above: Order Comment: Speci men Type: BLOOD SPECIMENOrdering Facility: [facility] Address: [address] [place] [address] Result Comment: No e vidence of HIV-1 or HIV-2 infection. Should recent infection be suspected, repeat testing may be considered 2-3 weeks after this draw. [place] Rev. Code 3701.243(E): This information has been disclosed to you from confidential records protected from disclosure by state law. ???You shall make no further disclosure of this information without the specific, written, and informed release of the individual to whom it pertains or as otherwise permitted by state law. A general authorization for the release of medical or other information is not sufficient for the purpose of the release of HIV test results or diagnoses. Performed By: #### 1 6933-4, 37563-9, 5195-3, 82809-8 ####[facility] LABCLIA [id number] [place] [address] [place] Reagin and Treponema pallidu m IgG and IgM [Interp]on 08-15-2022 SYPHILIS INTERPRETATION Cannot exclude r ecent Treponemal infection if specimen collected within 7-10 days after appearance of suspect lesions or 2-3 weeks after an exposure. Clinical correlation is required. Normal [facility] Comment on above: Order Comment: Speci men Type: BLOOD SPECIMENOrdering Facility: [facility] Address: [address] [place] [address] Performed By: #### 1 6933-4, 74201-7, 5195-3, 23445-8 ####[facility] LABIA [id number] [address] [place] T. pallidum IgG+IgM IA Ql (S) Non-Reactive Normal Nonreactive [facility] Comment on above: Order Comment: Speci men Type: BLOOD SPECIMENOrdering Facility: [facility] Address: [address] [place] [address] Performed By: #### 1 6933-4, 07265-1, 5195-3, 40219-8 ####[facility] LABIA [id number] [place] [address] [place] TYPE + SCREENon 08-15-2022 ABO O Normal [facility] Comment on above: Order Comment: Speci men Type: BLOOD SPECIMENOrdering Facility: [facility] Address: [address] [place] [address] Performed By: #### T SCR ####[facility] BLOOD BANKCLIA [id number] [place] [address] [place] HISTORICAL AB SCR STATUS Negative Normal [facility] Comment on above: Order Comment: Speci men Type: BLOOD SPECIMENOrdering Facility: [facility] Address: [address] Performed By: #### T SCR ####[facility] BLOOD BANKCLIA [id number] [address] Rh Nom (Bld) Positive Normal [facility] Comment on above: Order Comment: Speci men Type: BLOOD SPECIMENOrdering Facility: [facility] Address: [address] [place] [address] Performed By: #### T SCR ####[facility] BLOOD BANKCLIA [id number] [address] TYPE AND SCREEN EXPIRATION 08/18/2022 23:59 Normal [facility] Comment on above: Order Comment: Speci men Type: BLOOD SPECIMENOrdering Facility: [facility] Address: [address] [place] [address] Performed By: #### T SCR ####CC MAIN BLOOD BANKIA [id number] [address] CNNURSEon 07-23-2022 [facility] (REIBD) UZMA GALLEGO ([id number]) 1990 F [facility] Date Time Provider Department 07/23/22 10:00 AM NURSE MITCHEL COUNT INCLUDES THE [facility] MIKE REIBD During your visit today, we recorded the following information about you: Charlene Ken RN 07/23/2022 11:22 AM Signed Patient had an IVF consult with Mina Varela MD. Present for the phone call today is patient and she is by herself. Identified patient by name and date of . Yes. Chief Complaint- Infertility Medications and allergies reviewed and updated. Yes. History reviewed: OB, Medical, Surgical, and Substance AND Sexuality- Yes. Pre IVF requirements reviewed- Yes. Pre IVF requirements sent to the patient via [facility]- Yes Patient reminded to call us with start of periods- Yes Previous Fertility Treatment? - no G 0P 0 AB 0 LMP 06/25, Cycles- 28-30 days Episode created- yes / Protocol- antagonist Will monitor at [facility] yearly exam/PAP - done Uterine Eval - needs Mammo needed (39yo) - n/a AMH- 3.99 Pt. Labs: Type AND Screen, HIV 1AND2, Syphilis (RPR), Hepatitis B Core AB, Hepatitis B Surface AG, Hepatitis C AB, Rubella, Varicella, GC/Chlam - needs Myriad carrier screening - needs Partner STD: HIV 1AND2, Syphilis (RPR) Hepatitis B Core AB, Hepatitis B Surface AG, GC/Chlam - needs SA/Freeze Backup - ? done PGTA/M - No Financial/Coverage- [facility] Reunite discussed Psych Consult- n/a Donor Sperm- n/a IVF / Embryo - Nursing reviewed with patient and Sent via [facility] Is there anything special we should know about your medical history: Any artificial parts, pins, limbs, lines, drains, ports, implants, prosthetics- Patient Declines Medical problems- Patient Declines Diabetes- Patient Declines / (For DM - last eye appt n/a, MFM appt n/a) Sleep apnea- Patient Declines / CPAP machine no Blood clots or history of hematology issues- Patient Declines Any Latex allergies Yes. control use in past? No. Any contraindications? Yes / migraines Yes / smoking No / blood clots No RN Discussed: Nursing reviewed with patient all below Vacations and Traveling / Covid-19 / Weekend monitoring and retrieval / Time-off work MyChart use with plans, instructions results, appts. No jumping, bouncing, heavy lifting, or high impact activity during IVF cycle. Risk of ovarian torsion. No Motrin, Advil, Ibuprofen, etc. Tylenol or Acetaminophen only. Team approach of doctors and nurses. Stimulation can go 10-14 days. IVF appointments in the morning, called monitoring, which consist of ultrasound and bloodwork. Noon meeting with MD to discuss results/POC. Nurse call patient in afternoon with plan and send MyChart, schedule next appt. Patient and Partner verbally agreed on 07/23 not to order medication until all of the above requirements are completed, and they have been formally instructed to order medication. Patient and Partner verbally agreed on 07/23 to share their medical information with each other. 07/23 will be available and with patient before and after surgery. To do: STD testing Myriad testing Natural start due to migraine with aura Referring Provider: MINA VARELA [[id number]] Allergies As of Date: 07/23/2022 Noted Allergy Reaction BETA BLOCKERS (BETA-BLOCKERS (BET*09/20/2019 15 - Contraindication-Medic al Garcia* Comments: Avoid use of beta blockers while patient is on allergy immunotherapy LATEX 01/28/2018 2 - Rash Comments: Latex skin test positive on 09/20/19. NICKEL 05/11/2018 2 - Rash LEXAPRO (ESCITALOPRAM OXALATE) 02/26/2020 14 - Other: See Comments Comments: Fatigue PROPRANOLOL 06/03/2018 14 - Other: See Comments Comments: nightmares SEASONAL ALLERGIES 09/20/2019 16 - Unknown Comments: CATS, DOGS, DUST MITES, TREES, GRASSES, WEEDS AND RAGWEED VERIFIED BY SKIN TESTING VISTARIL (HYDROXYZINE HCL) 02/26/2020 14 - Other: See Comments Comments: fatigue Date Reviewed: 01/20/2022 Reviewed by: Jeni Craft OD - Fully Assessed Reason for Visit: Infertility [285] Primary Visit Diagnosis:Fertility testing [Z31.41] Order(s):HIV 1 2 COMBO(AG/AB),WITH REFLEX TO DIFFERENTIATION [SQHIV12] Order #: [id number] FUTURE SYPHILIS TOTAL W/REFLEX [SQSYPHTX] Order #: [id number] FUTURE HEP C AB IA W/CONF SCRN [WTHJPU5V] Order #: [id number] FUTURE HEP B SURF AG SCRN [SQHBSAG] Order #: [id number] FUTURE HEP B CORE AB TOTAL [SQAHBCOT] Order #: [id number] FUTURE GC/CHLAMYDIA AMPLIF, URINE [SQUGCCT] Order #: [id number] FUTURE TYPE + SCREEN [SQTSCR] Order #: [id number] FUTURE Prescriptions as of 07/23/2022 - azelastine (ASTELIN) 0.1% nasal spray Use 2 Sprays in each nostril twice daily as needed. - EPINEPHrine (AUVI-Q) 0.3 mg/0.3 mL auto-injector Inject 0.3 mL intramuscularly as needed. For allergic reaction.Seek emergent medical care immediately after use.Disp:1 2-packw/instructor trainer canine service - cholecalcif (more content not included)... [facility]CORPMN[facility] UZMA GALLEGO ([id number]) 1990 F [facility] Date Time Provider Department 07/15/22 SARA WILDER During your visit today, we recorded the following information about you: Sara Wilder APRN.CNP 07/15/2022 7:18 PM Signed CG filled out [employer] survey. Cleared to RTW. Will notify manager inventory management. Sara Wilder APRN.CNP Allergies As of Date: 07/15/2022 Noted Allergy Reaction BETA BLOCKERS (BETA-BLOCKERS (BET*09/20/2019 15 - Contraindication-Medic al Garcia* Comments: Avoid use of beta blockers while patient is on allergy immunotherapy LATEX 01/28/2018 2 - Rash Comments: Latex skin test positive on 09/20/19. NICKEL 05/11/2018 2 - Rash LEXAPRO (ESCITALOPRAM OXALATE) 02/26/2020 14 - Other: See Comments Comments: Fatigue PROPRANOLOL 06/03/2018 14 - Other: See Comments Comments: nightmares SEASONAL ALLERGIES 09/20/2019 16 - Unknown Comments: CATS, DOGS, DUST MITES, TREES, GRASSES, WEEDS AND RAGWEED VERIFIED BY SKIN TESTING VISTARIL (HYDROXYZINE HCL) 02/26/2020 14 - Other: See Comments Comments: fatigue Date Reviewed: 01/20/2022 Reviewed by: Jeni Craft OD - Fully Assessed Reason for Visit: [facility] COVID Outreach [[id number]] Prescriptions as of 07/15/2022 - azelastine (ASTELIN) 0.1% nasal spray Use 2 Sprays in each nostril twice daily as needed. - EPINEPHrine (AUVI-Q) 0.3 mg/0.3 mL auto-injector Inject 0.3 mL intramuscularly as needed. For allergic reaction.Seek emergent medical care immediately after use.Disp:1 2-packw/instructor trainer canine service - cholecalciferol, vitamin D3, (VITAMIN D3 ORAL) Take by mouth. - albuterol HFA (VENTOLIN HFA) 90 mcg/actuation inhaler Inhale 2 Puffs as instructed every 4 hours as needed. - mv-min/iron/folic/calc ium/vitK (WOMEN'S MULTIVITAMIN ORAL) Problem List As Of Date 07/15/2022 Noted Resolved Punctate keratitis, bilateral [H16.143] 11/19/2017 Migraine with aura [G43.109] Patent foramen ovale [Q21.12] Seasonal allergies [J30.2] DNS (deviated nasal septum) [J34.2] 12/21/2018 Dysfunction of both eustachian tubes [H69.83] 12/21/2018 Nasal turbinate hypertrophy [J34.3] 12/21/2018 Allergic rhinitis due to animal (cat) (dog) stuart*09/21/2019 Allergic rhinitis due to dust mite [J30.89] 09/21/2019 Seasonal allergic rhinitis due to pollen [J30.1]09/21/2019 Anxiety with depression [F41.8] Encounter Status:Closed by SARA WILDER on 07/15/22 [facility] Telephone (CORPMN) UZMA GALLEGO ([id number]) 1990 [facility] Date Time Provider Department 07/15/22 CHARLIE RICHARDS During your visit today, we recorded the following information about you: Allergies As of Date: 07/15/2022 Noted Allergy Reaction BETA BLOCKERS (BETA-BLOCKERS (BET*09/20/2019 15 - Contraindication-Medic al Garcia* Comments: Avoid use of beta blockers while patient is on allergy immunotherapy LATEX 01/28/2018 2 - Rash Comments: Latex skin test positive on 09/20/19. NICKEL 05/11/2018 2 - Rash LEXAPRO (ESCITALOPRAM OXALATE) 02/26/2020 14 - Other: See Comments Comments: Fatigue PROPRANOLOL 06/03/2018 14 - Other: See Comments Comments: nightmares SEASONAL ALLERGIES 09/20/2019 16 - Unknown Comments: CATS, DOGS, DUST MITES, TREES, GRASSES, WEEDS AND RAGWEED VERIFIED BY SKIN TESTING VISTARIL (HYDROXYZINE HCL) 02/26/2020 14 - Other: See Comments Comments: fatigue Date Reviewed: 01/20/2022 Reviewed by: Jeni Craft OD - Fully Assessed Reason for Visit: [facility] COVID Outreach [2395] Prescriptions as of 07/15/2022 - azelastine (ASTELIN) 0.1% nasal spray Use 2 Sprays in each nostril twice daily as needed. - EPINEPHrine (AUVI-Q) 0.3 mg/0.3 mL auto-injector Inject 0.3 mL intramuscularly as needed. For allergic reaction.Seek emergent medical care immediately after use.Disp:1 2-packw/instructor trainer canine service - cholecalciferol, vitamin D3, (VITAMIN D3 ORAL) Take by mouth. - albuterol HFA (VENTOLIN HFA) 90 mcg/actuation inhaler Inhale 2 Puffs as instructed every 4 hours as needed. - mv-min/iron/folic/calc ium/vitK (WOMEN'S MULTIVITAMIN ORAL) Problem List As Of Date 07/15/2022 Noted Resolved Punctate keratitis, bilateral [H16.143] 11/19/2017 Migraine with aura [G43.109] Patent foramen ovale [Q21.12] Seasonal allergies [J30.2] DNS (deviated nasal septum) [J34.2] 12/21/2018 Dysfunction of both eustachian tubes [H69.83] 12/21/2018 Nasal turbinate hypertrophy [J34.3] 12/21/2018 Allergic rhinitis due to animal (cat) (dog) stuart*09/21/2019 Allergic rhinitis due to dust mite [J30.89] 09/21/2019 Seasonal allergic rhinitis due to pollen [J30.1]09/21/2019 Anxiety with depression [F41.8] Encounter Status:Closed by CHARLIE RICHARDS on 07/15/22 Normal [facility] JULIONon 07-14-2022 [facility] Telephone (CORPMN) UZMA GALLEGO ([id number]) 1990 [facility] Date Time Provider Department 07/14/22 JAMIL LEWIS During your visit today, we recorded the following information about you: Jamil Lewis APRN.CNP 07/14/2022 5:48 PM Signed Day 5. Survey complete. Not cleared to RTW. Declining [facility] outreach at this time. Will continue to follow Survey results. Jamil Lewis APRN.CNP Allergies As of Date: 07/14/2022 Noted Allergy Reaction BETA BLOCKERS (BETA-BLOCKERS (BET*09/20/2019 15 - Contraindication-Medic al Garcia* Comments: Avoid use of beta blockers while patient is on allergy immunotherapy LATEX 01/28/2018 2 - Rash Comments: Latex skin test positive on 09/20/19. NICKEL 05/11/2018 2 - Rash LEXAPRO (ESCITALOPRAM OXALATE) 02/26/2020 14 - Other: See Comments Comments: Fatigue PROPRANOLOL 06/03/2018 14 - Other: See Comments Comments: nightmares SEASONAL ALLERGIES 09/20/2019 16 - Unknown Comments: CATS, DOGS, DUST MITES, TREES, GRASSES, WEEDS AND RAGWEED VERIFIED BY SKIN TESTING VISTARIL (HYDROXYZINE HCL) 02/26/2020 14 - Other: See Comments Comments: fatigue Date Reviewed: 01/20/2022 Reviewed by: Jeni Craft OD - Fully Assessed Reason for Visit: [facility] COVID Outreach [[id number]] Prescriptions as of 07/14/2022 - azelastine (ASTELIN) 0.1% nasal spray Use 2 Sprays in each nostril twice daily as needed. - EPINEPHrine (AUVI-Q) 0.3 mg/0.3 mL auto-injector Inject 0.3 mL intramuscularly as needed. For allergic reaction.Seek emergent medical care immediately after use.Disp:1 2-packw/instructor trainer canine service - cholecalciferol, vitamin D3, (VITAMIN D3 ORAL) Take by mouth. - albuterol HFA (VENTOLIN HFA) 90 mcg/actuation inhaler Inhale 2 Puffs as instructed every 4 hours as needed. - mv-min/iron/folic/calc ium/vitK (WOMEN'S MULTIVITAMIN ORAL) Problem List As Of Date 07/14/2022 Noted Resolved Punctate keratitis, bilateral [H16.143] 11/19/2017 Migraine with aura [G43.109] Patent foramen ovale [Q21.12] Seasonal allergies [J30.2] DNS (deviated nasal septum) [J34.2] 12/21/2018 Dysfunction of both eustachian tubes [H69.83] 12/21/2018 Nasal turbinate hypertrophy [J34.3] 12/21/2018 Allergic rhinitis due to animal (cat) (dog) stuart*09/21/2019 Allergic rhinitis due to dust mite [J30.89] 09/21/2019 Seasonal allergic rhinitis due to pollen [J30.1]09/21/2019 Anxiety with depression [F41.8] Encounter Status:Closed by JAMIL LEWIS on 07/14/22 [facility] Kiarra 07-10-2022 [facility] Telephone (CORPMN) UZMA GALLEGO ([id number]) 1990 F [facility] Date Time Provider Department 07/10/22 PIEDAD PARMAR During your visit today, we recorded the following information about you: Edward Haynes RN 07/10/2022 10:05 PM Signed CG reports positive rapid covid test / covid symptoms. Test date: 07/10/22 Sx onset: 07/09/22 Sx: JENKINS, congestion, sore throat, body aches Cg listed on pos cg report Allergies As of Date: 07/10/2022 Noted Allergy Reaction BETA BLOCKERS (BETA-BLOCKERS (BET*09/20/2019 15 - Contraindication-Medic al Garcia* Comments: Avoid use of beta blockers while patient is on allergy immunotherapy LATEX 01/28/2018 2 - Rash Comments: Latex skin test positive on 09/20/19. NICKEL 05/11/2018 2 - Rash LEXAPRO (ESCITALOPRAM OXALATE) 02/26/2020 14 - Other: See Comments Comments: Fatigue PROPRANOLOL 06/03/2018 14 - Other: See Comments Comments: nightmares SEASONAL ALLERGIES 09/20/2019 16 - Unknown Comments: CATS, DOGS, DUST MITES, TREES, GRASSES, WEEDS AND RAGWEED VERIFIED BY SKIN TESTING VISTARIL (HYDROXYZINE HCL) 02/26/2020 14 - Other: See Comments Comments: fatigue Date Reviewed: 01/20/2022 Reviewed by: Jeni Craft OD - Fully Assessed Reason for Visit: [facility] COVID Outreach [2525] Prescriptions as of 07/10/2022 - azelastine (ASTELIN) 0.1% nasal spray Use 2 Sprays in each nostril twice daily as needed. - EPINEPHrine (AUVI-Q) 0.3 mg/0.3 mL auto-injector Inject 0.3 mL intramuscularly as needed. For allergic reaction.Seek emergent medical care immediately after use.Disp:1 2-packw/instructor trainer canine service - cholecalciferol, vitamin D3, (VITAMIN D3 ORAL) Take by mouth. - albuterol HFA (VENTOLIN HFA) 90 mcg/actuation inhaler Inhale 2 Puffs as instructed every 4 hours as needed. - mv-min/iron/folic/calc ium/vitK (WOMEN'S MULTIVITAMIN ORAL) Problem List As Of Date 07/10/2022 Noted Resolved Punctate keratitis, bilateral [H16.143] 11/19/2017 Migraine with aura [G43.109] Patent foramen ovale [Q21.12] Seasonal allergies [J30.2] DNS (deviated nasal septum) [J34.2] 12/21/2018 Dysfunction of both eustachian tubes [H69.83] 12/21/2018 Nasal turbinate hypertrophy [J34.3] 12/21/2018 Allergic rhinitis due to animal (cat) (dog) stuart*09/21/2019 Allergic rhinitis due to dust mite [J30.89] 09/21/2019 Seasonal allergic rhinitis due to pollen [J30.1]09/21/2019 Anxiety with depression [F41.8] Encounter Status:Closed by EDWARD HAYNES on 07/10/22 [facility] Telephone (CORPMN) UZMA GALLEGO ([id number]) 1990 [facility] Date Time Provider Department 07/10/22 JOE WAGNER CORPMN During your visit today, we recorded the following information about you: Joe Wagner PA-C 07/10/2022 10:50 PM Signed SX onset: 07/09 Covid positive: 07/10 MCM and email sent to patient Email sent to manager inventory management Flowsheet completed Joe Wagner PA-C Allergies As of Date: 07/10/2022 Noted Allergy Reaction BETA BLOCKERS (BETA-BLOCKERS (BET*09/20/2019 15 - Contraindication-Medic al Garcia* Comments: Avoid use of beta blockers while patient is on allergy immunotherapy LATEX 01/28/2018 2 - Rash Comments: Latex skin test positive on 09/20/19. NICKEL 05/11/2018 2 - Rash LEXAPRO (ESCITALOPRAM OXALATE) 02/26/2020 14 - Other: See Comments Comments: Fatigue PROPRANOLOL 06/03/2018 14 - Other: See Comments Comments: nightmares SEASONAL ALLERGIES 09/20/2019 16 - Unknown Comments: CATS, DOGS, DUST MITES, TREES, GRASSES, WEEDS AND RAGWEED VERIFIED BY SKIN TESTING VISTARIL (HYDROXYZINE HCL) 02/26/2020 14 - Other: See Comments Comments: fatigue Date Reviewed: 01/20/2022 Reviewed by: Jeni Craft OD - Fully Assessed Reason for Visit: [facility] COVID Outreach [[id number]] Prescriptions as of 07/10/2022 - azelastine (ASTELIN) 0.1% nasal spray Use 2 Sprays in each nostril twice daily as needed. - EPINEPHrine (AUVI-Q) 0.3 mg/0.3 mL auto-injector Inject 0.3 mL intramuscularly as needed. For allergic reaction.Seek emergent medical care immediately after use.Disp:1 2-packw/instructor trainer canine service - cholecalciferol, vitamin D3, (VITAMIN D3 ORAL) Take by mouth. - albuterol HFA (VENTOLIN HFA) 90 mcg/actuation inhaler Inhale 2 Puffs as instructed every 4 hours as needed. - mv-min/iron/folic/calc ium/vitK (WOMEN'S MULTIVITAMIN ORAL) Problem List As Of Date 07/10/2022 Noted Resolved Punctate keratitis, bilateral [H16.143] 11/19/2017 Migraine with aura [G43.109] Patent foramen ovale [Q21.12] Seasonal allergies [J30.2] DNS (deviated nasal septum) [J34.2] 12/21/2018 Dysfunction of both eustachian tubes [H69.83] 12/21/2018 Nasal turbinate hypertrophy [J34.3] 12/21/2018 Allergic rhinitis due to animal (cat) (dog) stuart*09/21/2019 Allergic rhinitis due to dust mite [J30.89] 09/21/2019 Seasonal allergic rhinitis due to pollen [J30.1]09/21/2019 Anxiety with depression [F41.8] Encounter Status:Closed by JOE WAGNER on 07/10/22 [facility] CONSULT PROGon 06-22-2022 CONSULT PROG HNO ID: [id number] Author: Mina Varela MD Service: ? Author Type: Physician Type: Consult Progress Note Filed: 07/11/2022 10:56 PM Note Text: VIRTUAL VISIT PROGRESS NOTE This is a virtual visit using Audio only. It required patient-provider interaction for the medical decision making as documented below. Date of Consult: 06/22/2022 Consultation Requested By: Self-referred Uzma Gallego is a 32 year old female presenting with the following history: HISTORY OF PRESENT ILLNESS: Uzma Gallego is a 32 year old female Attempting to conceive 05/2021 Menstrual cycle irregularity: 28 day interval OPK+ PMHx: Migraine with aura (OCP related) PSHx: Septoplasty. Eustachion tubes. Tooth extraction OBHx: Denies Meds: MVI. Seasonal allergy Desire for future fertility *Discussed frustration with lack of conception *Discussed CC and LET + IUI *Discussed IVF planning/procedures/pr ocesses 39 year old male partner without proven fertility PMHx: Denies PSHx: Hernia repair Meds: Denies SA: 99/78%/4% Notes from previous encounter: 32 year old female Attempting to conceive 05/2021 Menstrual cycle irregularity: 28 day interval OPK+ PMHx: Migraine with aura (OCP related) PSHx: Septoplasty. Eustachion tubes. Tooth extraction OBHx: Denies Meds: MVI. Seasonal allergy Desire for future fertility 39 year old male partner without proven fertility PMHx: Denies PSHx: Hernia repair Meds: Denies SA: 99/78%/4% Notes from previous encounter: 32 year old female Attempting to conceive 05/2021 Menstrual cycle irregularity: 28 day interval OPK+ PMHx: Migraine with aura (OCP related) PSHx: Septoplasty. Eustachion tubes. Tooth extraction OBHx: Denies Meds: MVI. Seasonal allergy Desire for future fertility 39 year old male partner without proven fertility PMHx: Denies PSHx: Hernia repair Meds: Denies SA: 99/78%/4% Obstetric History T0 L0 SAB0 IAB0 Ectopic0 Multiple0 Live Births0 Fertility Evaluations and Treatments: Eval Checklist Results Date Comments HSG Not done Hysteroscopy Not done Laparoscopy Not done OPK (Ovulation Predictor Kit) Normal Ovarian [place] Normal Saline Ultrasound Not done Semen Analysis Normal Ultrasound Not done Other (See comments) Not done MENSTRUAL HISTORY: Menarche Age: 11 Length of Cycle: 28 Regular Days: 4 Menstrual Flow: Menstrual Symptoms: Breast Tenderness,Mood Changes,Bloating Patient's last menstrual period was 12/16/2021. PAST MEDICAL HISTORY Diagnosis Date Anxiety with depression seasonal Deviated septum Eustachian tube dysfunction Migraine with aura Patent foramen ovale 01/[address] 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 EPINEPHrine (AUVI-Q) 0.3 mg/0.3 mL auto-injector Inject 0.3 mL intramuscularly as needed. For allergic reaction.Seek emergent medical care immediately after use.Disp:1 2-packw/instructor trainer canine service cholecalciferol, vitamin D3, (VITAMIN D3 ORAL) Take by mouth. albuterol HFA (VENTOLIN HFA) 90 mcg/actuation inhaler Inhale 2 Puffs as instructed every 4 hours as needed. mv-min/iron/folic/calc ium/vitK (WOMEN'S MULTIVITAMIN ORAL) No current facility-administered medications on file prior to visit. ALLERGIES: Beta Blockers [Beta-Blockers (Beta-Adrenergic Blocking Agts)], Latex, Nickel, Lexapro [Escitalopram Oxalate], Propranolol, Seasonal Allergies, and Vistaril [Hydroxyzine Hcl] Blood Type: NA ASSESSMENT: 32 year old female Attempting to conceive 05/2021 Menstrual cycle irregularity: 28 day interval OPK+ PMHx: Migraine with aura (OCP related) PSHx: Septoplasty. Eustachion tubes. Tooth extraction OBHx: Denies Meds: MVI. Seasonal allergy Desire for future fertility *Discussed frustration with lack of conception *Discussed CC and LET + IUI *Discussed IVF planning/procedures/pr dashawn 39 year old male partner without proven fertility PMHx: Denies PSHx: Hernia repair Meds: Denies SA: (more content not included)... Normal [facility] CNOVon 04-08-2022 CNOV Office Visit (WHREBA ) UZMA GALLEGO ([id number]) 1990 F [facility] Date Time Provider Department 04/08/22 12:45 PM MINA VARELA WHREBA During your visit today, we recorded the following information about you: Mina Varela MD 04/08/2022 1:56 PM Signed [facility] MITCHEL HYSTEROSALPINGOGRAM NOTE Date: April 08, 2022 Uzma Gallego was seen in Radiology for a Hysterosalpingogram for fertility testing. The procedure including risks, benefits and options was discussed with the patient. There are no contraindications to the procedure. Uzma Gallego expressed understanding and agreed to proceed. UNIVERSAL PROTOCOL / SAFETY CHECKLIST UNIVERSAL PROTOCOL / SAFETY CHECKLIST Procedure to be Performed: HSG Sign In: A Moment of CARE was completed. Personnel directly involved with the procedure wore the appropriate PPE (Personal Protective Equipment). No special equipment needed. Patient/Surrogate Stated/Verified: PATIENT VERIFIED(optional for EMERGENT procedures): Patient name, Date of , Relevant allergies, and The intended procedure Time Out Communication: Intended patient and procedure match the source documents. Consent documented and matches the intended procedure. Relevant labs, photos, and/or imaging studies have been reviewed. No correct side/site applicable for marking and visibility. No medications required for procedure. Fire risk assessed and interventions discussed. No implant(s) inserted. Sign Out: SIGN OUT (optional for EMERGENT procedures): No specimen collected. All instruments, equipment, possible retained foreign bodies accounted for. Post-procedure follow-up management communicated and Plan of Care Visit completed when applicable. Mina Varela MD Procedure: The cervix is visualized, prepped with betadine. The canula was inserted into the cervix and contrrast injected into the cavity. Using Fluroscopy the uterine cavity is normal and the fallopian tubes are patent bilaterally without evidence of loculation. Mina Varela MD Referring Provider: MINA VARELA [[id number]] Allergies As of Date: 04/08/2022 Noted Allergy Reaction BETA BLOCKERS (BETA-BLOCKERS (BET*09/20/2019 15 - Contraindication-Medic al Garcia* Comments: Avoid use of beta blockers while patient is on allergy immunotherapy LATEX 01/28/2018 2 - Rash Comments: Latex skin test positive on 09/20/19. NICKEL 05/11/2018 2 - Rash LEXAPRO (ESCITALOPRAM OXALATE) 02/26/2020 14 - Other: See Comments Comments: Fatigue PROPRANOLOL 06/03/2018 14 - Other: See Comments Comments: nightmares SEASONAL ALLERGIES 09/20/2019 16 - Unknown Comments: CATS, DOGS, DUST MITES, TREES, GRASSES, WEEDS AND RAGWEED VERIFIED BY SKIN TESTING VISTARIL (HYDROXYZINE HCL) 02/26/2020 14 - Other: See Comments Comments: fatigue Date Reviewed: 01/20/2022 Reviewed by: Jeni Craft OD - Fully Assessed Visit Diagnosis:Fallopian insufflation for fertility testing [Z31.41] Order(s):XR HYSTEROSALPINGOGRAM [[id number]] Order #: [id number] Prescriptions as of 04/08/2022 - azelastine (ASTELIN) 0.1% nasal spray Use 2 Sprays in each nostril twice daily as needed. - EPINEPHrine (AUVI-Q) 0.3 mg/0.3 mL auto-injector Inject 0.3 mL intramuscularly as needed. For allergic reaction.Seek emergent medical care immediately after use.Disp:1 2-packw/instructor trainer canine service - cholecalciferol, vitamin D3, (VITAMIN D3 ORAL) Take by mouth. - albuterol HFA (VENTOLIN HFA) 90 mcg/actuation inhaler Inhale 2 Puffs as instructed every 4 hours as needed. - mv-min/iron/folic/calc ium/vitK (WOMEN'S MULTIVITAMIN ORAL) Problem List As Of Date 04/08/2022 Noted Resolved Punctate keratitis, bilateral [H16.143] 11/19/2017 Migraine with aura [G43.109] Patent foramen ovale [Q21.1] Seasonal allergies [J30.2] DNS (deviated nasal septum) [J34.2] 12/21/2018 Dysfunction of both eustachian tubes [H69.83] 12/21/2018 Nasal turbinate hypertrophy [J34.3] 12/21/2018 Allergic rhinitis due to animal (cat) (dog) stuart*09/21/2019 Allergic rhinitis due to dust mite [J30.89] 09/21/2019 Seasonal allergic rhinitis due to pollen [J30.1]09/21/2019 Anxiety with depression [F41.8] Encounter Status:Closed by MINA VARELA on 04/08/22 [facility] CNOV Office Visit (WHREBA ) UZMA GALLEGO ([id number]) 1990 F [facility] Date Time Provider Department 04/08/22 12:15 PM NURSE MITCHEL LOJA WHREBA During your visit today, we recorded the following information about you: Referring Provider: SELF [[id number]] Allergies As of Date: 04/08/2022 Noted Allergy Reaction BETA BLOCKERS (BETA-BLOCKERS (BET*09/20/2019 15 - Contraindication-Medic al Garcia* Comments: Avoid use of beta blockers while patient is on allergy immunotherapy LATEX 01/28/2018 2 - Rash Comments: Latex skin test positive on 09/20/19. NICKEL 05/11/2018 2 - Rash LEXAPRO (ESCITALOPRAM OXALATE) 02/26/2020 14 - Other: See Comments Comments: Fatigue PROPRANOLOL 06/03/2018 14 - Other: See Comments Comments: nightmares SEASONAL ALLERGIES 09/20/2019 16 - Unknown Comments: CATS, DOGS, DUST MITES, TREES, GRASSES, WEEDS AND RAGWEED VERIFIED BY SKIN TESTING VISTARIL (HYDROXYZINE HCL) 02/26/2020 14 - Other: See Comments Comments: fatigue Date Reviewed: 01/20/2022 Reviewed by: Jeni Craft OD - Fully Assessed Primary Visit Diagnosis: examination or test, unconfirmed [Z32.00] Order(s):HCG QUAL UR B/O [[id number]] Order #: [id number] Prescriptions as of 04/15/2022 - azelastine (ASTELIN) 0.1% nasal spray Use 2 Sprays in each nostril twice daily as needed. - EPINEPHrine (AUVI-Q) 0.3 mg/0.3 mL auto-injector Inject 0.3 mL intramuscularly as needed. For allergic reaction.Seek emergent medical care immediately after use.Disp:1 2-packw/instructor trainer canine service - cholecalciferol, vitamin D3, (VITAMIN D3 ORAL) Take by mouth. - albuterol HFA (VENTOLIN HFA) 90 mcg/actuation inhaler Inhale 2 Puffs as instructed every 4 hours as needed. - mv-min/iron/folic/calc ium/vitK (WOMEN'S MULTIVITAMIN ORAL) Problem List As Of Date 04/08/2022 Noted Resolved Punctate keratitis, bilateral [H16.143] 11/19/2017 Migraine with aura [G43.109] Patent foramen ovale [Q21.1] Seasonal allergies [J30.2] DNS (deviated nasal septum) [J34.2] 12/21/2018 Dysfunction of both eustachian tubes [H69.83] 12/21/2018 Nasal turbinate hypertrophy [J34.3] 12/21/2018 Allergic rhinitis due to animal (cat) (dog) stuart*09/21/2019 Allergic rhinitis due to dust mite [J30.89] 09/21/2019 Seasonal allergic rhinitis due to pollen [J30.1]09/21/2019 Anxiety with depression [F41.8] Encounter Status:Closed by RADHA DALE RN on 04/15/22 [facility] HCG QUAL UR B/Oon 04-08-2022 status Negative neg - pos Clejoe morley [facility] Quality Check Yes [facility] XR HYSTEROSALPINGOGRAMon XR HYSTEROSALPINGOGRAM * * *Final Report * * * DATE OF EXAM: Apr 08 2022 1:10PM AWX [id number] - XR HYSTEROSALPINGOGRAM / PROCEDURE REASON: Z31.41 * * * * Physician Interpretation * * * * EXAM TITLE: XR HYSTEROSALPINGOGRAM DATE: 04/08/2022 INDICATION: Infertility evaluation. COMPARISON: None. Exam performed by Dr. Varela 2 images are provided. 0.1 minutes of fluoroscopic time utilized. 2 images show normal fill and spill from fallopian tubes. Endometrial canal appears grossly normal. IMPRESSION: Unremarkable hysterosalpingogram. Nurse Ldr: PSCKimberly Transcribe Date/Time: Apr 10 2022 9:52A Dictated by : RICHARD DIAZ MD This examination was interpreted and the report reviewed and electronically signed by: RICHARD DIAZ MD on Apr 10 2022 9:53AM EST [id number] Normal [facility] CNOVon 04-03-2022 CNOV Office Visit (OBGYWM ) UZMA GALLEGO ([id number]) 1990 [facility] Date Time Provider Department 04/03/22 4:40 PM YAMILA ARMSTRONG OBGYWM During your visit today, we recorded the following information about you: Referring Provider: MINA VARELA [[id number]] Allergies As of Date: 04/03/2022 Noted Allergy Reaction BETA BLOCKERS (BETA-BLOCKERS (BET*09/20/2019 15 - Contraindication-Medic al Garcia* Comments: Avoid use of beta blockers while patient is on allergy immunotherapy LATEX 01/28/2018 2 - Rash Comments: Latex skin test positive on 09/20/19. 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 - EPINEPHrine (AUVI-Q) 0.3 mg/0.3 mL auto-injector Inject 0.3 mL intramuscularly as needed. For allergic reaction.Seek emergent medical care immediately after use.Disp:1 2-packw/instructor trainer canine service - cholecalciferol, vitamin D3, (VITAMIN D3 ORAL) Take by mouth. - albuterol HFA (VENTOLIN HFA) 90 mcg/actuation inhaler Inhale 2 Puffs as instructed every 4 hours as needed. - mv-min/iron/folic/calc ium/vitK (WOMEN'S MULTIVITAMIN ORAL) Problem List As Of Date 04/03/2022 Noted Resolved Punctate keratitis, bilateral [H16.143] 11/19/2017 Migraine with aura [G43.109] Patent foramen ovale [Q21.1] Seasonal allergies [J30.2] DNS (deviated nasal septum) [J34.2] 12/21/2018 Dysfunction of both eustachian tubes [H69.83] 12/21/2018 Nasal turbinate hypertrophy [J34.3] 12/21/2018 Allergic rhinitis due to animal (cat) (dog) stuart*09/21/2019 Allergic rhinitis due to dust mite [J30.89] 09/21/2019 Seasonal allergic rhinitis due to pollen [J30.1]09/21/2019 Anxiety with depression [F41.8] Encounter Status:Closed by YAMILA VILLASENOR on 04/07/22 Normal [facility] ANTI MULLERIAN HORMONEon Mullerian inhibiting substance [Mass/Vol] 3.99 ng/mL Normal 0.58-8.13 [facility] Comment on above: Order Comment: Speci men Type: BLOOD SPECIMENOrdering Facility: [facility] Address: [address] [place] [address] Performed By: #### M EMILY ####[facility] LABCLIA [id number] [facility] [id number] [id number] [place] CONSULT PROGon 03-27-2022 CONSULT PROG HNO ID: [id number] Author: Mina Varela MD Service: ? Author Type: Physician Type: Consult Progress Note Filed: 03/27/2022 10:47 AM Note Text: VIRTUAL VISIT PROGRESS NOTE This is a virtual visit using BluPanda video visit. It required patient-provider interaction for the medical decision making as documented below. Date of Consult: 03/27/2022 Consultation Requested By: Calli Kearney APRN, CNM Uzma Gallego is a 32 year old female presenting with the following history: HISTORY OF PRESENT ILLNESS: Uzma Gallego is a 32 year old female Attempting to conceive 05/2021 Menstrual cycle irregularity: 28 day interval OPK+ PMHx: Migraine with aura (OCP related) PSHx: Septoplasty. Eustachion tubes. Tooth extraction OBHx: Denies Meds: MVI. Seasonal allergy Desire for future fertility 39 year old male partner without proven fertility PMHx: Denies PSHx: Hernia repair Meds: Denies SA: 99/78%/4% Obstetric History T0 L0 SAB0 IAB0 Ectopic0 Multiple0 Live Births0 Fertility Evaluations and Treatments: Eval Checklist Results Date Comments HSG Not done Hysteroscopy Not done Laparoscopy Not done OPK (Ovulation Predictor Kit) Normal Ovarian [place] Normal Saline Ultrasound Not done Semen Analysis Normal Ultrasound Not done Other (See comments) Not done MENSTRUAL HISTORY: Menarche Age: 11 Length of Cycle: 28 Regular Days: 4 Menstrual Flow: Menstrual Symptoms: Breast Tenderness,Mood Changes,Bloating Patient's last menstrual period was 12/16/2021. PAST MEDICAL HISTORY Diagnosis Date Anxiety with depression seasonal Deviated septum Eustachian tube dysfunction Migraine with aura Patent foramen ovale 01/[address] 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 EPINEPHrine (AUVI-Q) 0.3 mg/0.3 mL auto-injector Inject 0.3 mL intramuscularly as needed. For allergic reaction.Seek emergent medical care immediately after use.Disp:1 2-packw/instructor trainer canine service cholecalciferol, vitamin D3, (VITAMIN D3 ORAL) Take by mouth. albuterol HFA (VENTOLIN HFA) 90 mcg/actuation inhaler Inhale 2 Puffs as instructed every 4 hours as needed. mv-min/iron/folic/calc ium/vitK (WOMEN'S MULTIVITAMIN ORAL) No current facility-administered medications on file prior to visit. ALLERGIES: Beta Blockers [Beta-Blockers (Beta-Adrenergic Blocking Agts)], Latex, Nickel, Lexapro [Escitalopram Oxalate], Propranolol, Seasonal Allergies, and Vistaril [Hydroxyzine Hcl] Blood Type: NA ASSESSMENT: 32 year old female Attempting to conceive 05/2021 Menstrual cycle irregularity: 28 day interval OPK+ PMHx: Migraine with aura (OCP related) PSHx: Septoplasty. Eustachion tubes. Tooth extraction OBHx: Denies Meds: MVI. Seasonal allergy Desire for future fertility 39 year old male partner without proven fertility PMHx: Denies PSHx: Hernia repair Meds: Denies SA: 99/78%/4% PLAN: Initial evaluation: Hormone values: Normal HSG Pelvic US SA: Normal Follow-up visit: In-person office visit or virtual visit to review and discuss initial work-up results to determine treatment plan I spent a total of 45 minutes face to face with the patient. Greater than 50% of the time was spent counseling and coordinating the care based on my plan and assessment as noted. A consultation was requested by Dr. Calli Kearney APRN, CNM for an opinion regarding attempting to conceive without success and the desire for future fertility. My recommendations will be communicated back to her via shared Electronic Medical Record. Mina Varela MD March 27, 2022 10:41 AM Normal [facility] CNOVon 01-05-2022 CNOV Office Visit (OBGYWM ) UZMA GALLEGO ([id number]) 1990 F [facility] Date Time Provider Department 01/05/22 9:40 AM BRAULIO BORDEN OBCESAR During your visit today, we recorded the following information about you: Blood pressure Weight Height 92/56 53.3 kg 1.6 m Braulio Borden MD 01/05/2022 10:17 AM Signed Uzma is a 31 year old who presents for an annual gynecologic exam without complaints. 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 Starts new job in [employer] soon. Menses: cycles every 28-30 days and 5 days of flow. Contraception: none HPV vaccine: Yes Last Pap: 07/20/2019 normal HPV: 07/20/2019 negative History of abnormal pap: No Last mammogram: never OB History T0 L0 SAB0 IAB0 Ectopic0 Multiple0 Live Births0 [employer] History LMP: 12/16/2021, Having periods Age at Menarche: Age at First : Age at Menopause: [employer] History Comments: Sexual Activity: Yes; Male; none Contraception: No contraception data on record PAST MEDICAL HISTORY Diagnosis Date - Anxiety with depression seasonal - Deviated septum - Eustachian tube dysfunction - Migraine with aura - Patent foramen ovale 01/2018 - Seasonal allergies Dr. Reyes for allergy shots - Tonsil stone PAST SURGICAL HISTORY Procedure Laterality Date - PAST SURGICAL HISTORY OF Bilateral surgical correction of tear duct blockage - PAST SURGICAL HISTORY OF wisdom teeth extraction - SEPTOPLASTY 01/09/2019 septoplasty for deviated septum FAMILY HISTORY Problem Relation Age of Onset - Skin Cancer Mother - Skin Cancer Maternal Grandmother - other (dementia) Maternal Grandmother - Heart Maternal Grandfather - other (atrial fibrillation) Maternal Grandfather - Asthma Father - other (pvd) Father SOCIAL HISTORY Social History Tobacco Use - Smoking status: Never Smoker - Smokeless tobacco: Never Used Vaping Use - Vaping Use: Never used Substance Use Topics - Alcohol use: Yes Comment: 2 times per month - Drug use: No REVIEW OF SYSTEMS Abdomen: No abdominal pain, nausea, vomiting, diarrhea, or constipation. No bloating, early satiety, indigestion, or increased flatulence. Bladder: No dysuria, gross hematuria, urinary frequency, urinary urgency, or incontinence. Breast: No breast lumps, nipple d/c, overlying skin changes, redness or skin retraction. Allergies and current medication updated:Yes EXAM: BP 92/56 Ht 5' 3" (1.60m) Wt 117 lb 9.6 oz (53.3kg) LMP 12/16/2021 BMI 20.84 kg/(m2). GENERAL: pleasant, female in no apparent distress BREAST: soft, non-tender, symmetric, no dominant mass, normal nipple-areolar complex, no lymphadenopathy and no nipple discharge CHEST: Normal inspiratory effort ABDOMEN: soft, non-tender and no masses PELVIC: external genitalia normal, normal Bartholin's glands, urethra, Sumrall's glands, no vulvar lesions, no cervical lesions, good vaginal support, physiologic discharge present, normal appearing perineal body and perianal region BIMANUAL: uterus normal size, shape and consistency, no adnexal masses and non-tender RECTOVAGINAL: deferred. NEURO: alert and oriented x3,exam grossly non-focal EXTREMITIES: normal ASSESSMENT/PLAN: 1) Health maintenance: Pap/HPV up to date. Mammogram starting age 40. Nutrition, exercise and routine health maintenance exams reviewed. 2) Contraception: none. Advised on preconception folic acid. 3) Follow up one year or sooner as needed Braulio Borden MD Referring Provider: SELF [200] Allergies As of Date: 01/05/2022 Noted Allergy Reaction BETA BLOCKERS (BETA-BLOCKERS (BET*09/20/2019 15 - Contraindication-Medic al Garcia* Comments: Avoid use of beta blockers while patient is on allergy immunotherapy LATEX 01/28/2018 2 - Rash Comments: Latex skin test positive on 09/20/19. NICKEL 05/11/2018 2 - Rash LEXAPRO (ESCITALOPRAM OXALATE) 02/26/2020 14 - Other: See Comments Comments: Fatigue PROPRANOLOL 06/03/2018 14 - Other: See Comments Comments: nightmares SEASONAL ALLERGIES 09/20/2019 16 - Unknown Comments: CATS, DOGS, DUST MITES, TREES, GRASSES, WEEDS AND RAGWEED VERIFIED BY SKIN TESTING VISTARIL (HYDROXYZINE HCL) 02/26/2020 14 - Other: See Comments Comments: fatigue Date Reviewed: 01/05/2022 Reviewed by: Braulio Borden MD - Fully Assessed Reason for Visit: Yearly Exam [187] Primary Visit Diagnosis:Encounter for gynecological examination without abnormal finding [Z01.419] Prescriptions as of 01/05/2022 - azelastine (ASTELIN) 0.1% nasal spray Use 2 Sprays in each nostril twice daily as needed. - EPINEPHrine (AUVI-Q) 0.3 mg/0.3 mL auto-injector Inject 0.3 mL intramuscularly as needed. For allergic reaction.Seek emergent medical care immediately after use.Disp:1 2-packw/instructor trainer canine service - cholecalciferol, vitamin D3, (VITAMIN D3 ORAL) Take by mouth. - albuterol H (more content not included)... Normal [facility] PROGESTERONE BLDon 2 Progesterone [Mass/Vol] 19.1 ng/mL Normal See comment [facility] Comment on above: Order Comment: Speci men Type: BLOOD SPECIMENOrdering Facility: [facility] Address: [address] [place] [address] Result Comment: Mens trual Cycle Progesterone Reference Ranges: Follicular: <1.0 ng/mL Ovulation: <12.1 ng/mL Luteal: 1.8 to 23.9 ng/mL. Progesterone Reference Ranges vary by gestational period: First Trimester: 11.0 to 44.3 ng/mL Second Trimester: 25.4 to 83.3 ng/mL Third Trimester: 58.7 to 214 ng/mL Post menopausal Progesterone: <0.5 ng/mL Reference: 1. Progesterone (Progesterone III) [package insert V 1.0 [place]ian]. [employer], [place], [place]. May 2015. Performed By: #### P PENG ####[facility] LABCLIA [id number] [place] [address] [place] ESTRADIOL-17B BLDon 12-20-19 E2 [Mass/Vol] pg/mL [facility] FSH BLDon 12-19-2021 Follitropin Qn 7.4 m[IU]/mL See comment mIU/mL [facility] TSH BLDon 12-19-2021 TSH Qn 1.840 m[IU]/L 0.270 - 4.200 mIU/L [facility] Estradiol SerPl-mCncon 12-18 E2 [Mass/Vol] pg/mL Normal [facility] Comment on above: Order Comment: Speci men Type: BLOOD SPECIMENOrdering Facility: [facility] Address: [address] [place] [address] Result Comment: This test is not suitable for patients receiving treatment with the drug Fulvestrant (Faslodex). The drug causes an interference leading to falsely elevated estradiol results. Menstrual cycle Estradiol reference ranges: Follicular : < 234 pg/mL Ovulation : 41 to 398 pg/mL Luteal : < 342 pg/mL Estradiol reference ranges vary by gestational period: First trimester : 154 to 3243 pg/mL Second trimester : 1561 to 55811 pg/mL Third trimester : 8285 to >57026 pg/mL Post-menopausal Estradiol reference range: < 41 pg/mL Reference: 1. Estradiol - E2 (Estradiol III) [package insert V 3.0 [place]ian]. Cheryl Jostle, [place], [place], January 2016. Performed By: #### 2 243-4, 08544-6, 3016-3 ####[facility] LABCLIA [id number] [place] [address] [place] FSH SerPl-aCncon 12-18-2021 Follitropin Qn 7.4 m[IU]/mL Normal See comment [facility] Comment on above: Order Comment: Speci men Type: BLOOD SPECIMENOrdering Facility: [facility] Address: [address] [place], [place] [address] Result Comment: Refe rence range: Follicular: 3.5-12.5 mIU/mL Midcycle: 4.7-21.5 mIU/mL Luteal: 1.7-7.7 mIU/mL Post Celeste: 25.8-134.8 mIU/mL Performed By: #### 2 243-4, 62251-4, 3016-3 ####[facility] LABCLIA [id number] [place] [id number] [place] TSH SerPl-aCncon 12-18-2021 TSH Qn 1.840 m[IU]/L Normal 0.270-4.200 [facility] Comment on above: Order Comment: Speci men Type: BLOOD SPECIMENOrdering Facility: [facility] Address: [address] Result Comment: If t he patient is , TSH reference range varies by gestational period: First Trimester (weeks 9-12): 0.180-2.990 mIU/L Second Trimester: 0.110-3.980 mIU/L Third Trimester: 0.480-4.710 mIU/L Hugo Ramsay et al. A Practical Approach for the Verifications and Determination of Site- and Trimester-Specific Reference Intervals for Thyroid Function tests in . Thyroid, 2019:29:3:412-420. Richmond Partida, et al. 2017 Guidelines of the [place] Thyroid Association for the Diagnosis and Management of Thyroid Disease during and the . Thyroid, 2017:27:3:315-389. Performed By: #### 2 243-4, 08542-7, 6-3 ####[facility] LABCLIA [id number] [place] [id number] [facility] CNOVon 12-17-2021 CNOV Office Visit (OBGYWM ) UZMA GALLEGO ([id number]) 1990 F [facility] Date Time Provider Department 12/17/21 10:45 AM JENNIFER KEARNEY During your visit today, we recorded the following information about you: Blood pressure Weight Last Period 110/70 53.5 kg 12/16/21 Jennifer Kearney APRN.CNM 01/02/2022 3:42 PM Signed Uzma Gallego is a 31 year old female who presents for problem visit follow up infertility. HPI: LMP 04/30/21, regular menses. Started attempting May 2021 . Cycles 26-28 days, last 5-6 days. Taking PNV, baby and Me. 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 8 cycles has been attempting , using OPK, timing intercourse, and no . OPK shows ovulation cycle day 15-16 with LH surge. Starts having intercourse 1 week before ovulation every other day, on day of ovulation and day after. with no medical conditions, 39 years old. Patient or have never had any infertility work up. Denies any history of STD, PID, or uterine surgeries. OB History T0 L0 SAB0 IAB0 Ectopic0 Multiple0 Live Births0 [employer] History LMP: 12/16/2021, Having periods Age at Menarche: Age at First : Age at Menopause: [employer] History Comments: Sexual Activity: Yes; Male Contraception: No contraception data on record PAST MEDICAL HISTORY Diagnosis Date - Anxiety with depression seasonal - Deviated septum - Eustachian tube dysfunction - Migraine with aura - Patent foramen ovale 01/2018 - Seasonal allergies Dr. Reyes for allergy shots - Tonsil stone PAST SURGICAL HISTORY Procedure Laterality Date - PAST SURGICAL HISTORY OF Bilateral surgical correction of tear duct blockage - PAST SURGICAL HISTORY OF wisdom teeth extraction - SEPTOPLASTY 01/09/2019 septoplasty for deviated septum FAMILY HISTORY Problem Relation Age of Onset - Skin Cancer Mother - Skin Cancer Maternal Grandmother - other (dementia) Maternal Grandmother - Heart Maternal Grandfather - other (atrial fibrillation) Maternal Grandfather - Asthma Father - other (pvd) Father Social History Tobacco Use - Smoking status: Never Smoker - Smokeless tobacco: Never Used Vaping Use - Vaping Use: Never used Substance Use Topics - Alcohol use: Yes Comment: 2 times per month - Drug use: No Current Outpatient Medications Medication Sig - azelastine (ASTELIN) 0.1% nasal spray Use 2 Sprays in each nostril twice daily as needed. - EPINEPHrine (AUVI-Q) 0.3 mg/0.3 mL auto-injector Inject 0.3 mL intramuscularly as needed. For allergic reaction.Seek emergent medical care immediately after use.Disp:1 2-packw/instructor trainer canine service - cholecalciferol, vitamin D3, (VITAMIN D3 ORAL) Take by mouth. - albuterol HFA (VENTOLIN HFA) 90 mcg/actuation inhaler Inhale 2 Puffs as instructed every 4 hours as needed. - mv-min/iron/folic/calc ium/vitK (WOMEN'S MULTIVITAMIN ORAL) - loratadine (CLARITIN) 10 mg tablet Take 1 tablet by mouth once daily. (Patient not taking: Reported on 12/17/2021 ) No current facility-administered medications for this visit. Allergies As of Date: 12/17/2021 Allergen Noted Reaction BETA BLOCKERS [BETA-BLOCKERS (BET*09/20/2019 Contraindication-Medic al Surgical LATEX 01/28/2018 Rash NICKEL 05/11/2018 Rash LEXAPRO [ESCITALOPRAM OXALATE] 02/26/2020 Other: See Comments PROPRANOLOL 06/03/2018 Other: See Comments SEASONAL ALLERGIES 09/20/2019 Unknown VISTARIL [HYDROXYZINE HCL] 02/26/2020 Other: See Comments Fully Assessed 12/17/2021 REVIEW OF SYSTEMS Abdomen: No bloating, early satiety, indigestion, or increased flatulence. No abdominal pain, nausea, vomiting, diarrhea, or constipation. Bladder: No dysuria, gross hematuria, urinary frequency, urinary urgency, or incontinence. Breast: No breast lumps, nipple d/c, overlying skin changes, redness or skin retraction. Expanded ROS: N/A Allergies and current medication updated:Yes EXAM: BP 110/70 Wt 118 lb (53.5kg) LMP 12/16/2021 GENERAL: pleasant, female in no apparent distress NEURO: alert and oriented x3,exam grossly non-focal EXTREMITIES: normal ASSESSMENT AND PLAN: 1. Female infertility - ICD9: 628.9, ICD10: N97.9 - PROGESTERONE BLD - FSH BLD - ESTRADIOL-17B BLD - TSH BLD -Reviewed will get labs and discuss medication to induce ovulation if indicated. SUSSY Snow APRN.CNM 12/17/2021 11:14 AM Addendum Urology for semenalysis-[facility] Contact US [phone] Blood work FSH, estradiol, TSH on cycle day 3 Progesterone level on cycle day 21 Luteal Phase Progesterone This simple blood test is done to confirm whether or not you are ovulating. In order to time this blood test accurately, you will need to use a home ovulation predictor kit.This test needs to be done 6-8 days after your surge. (more content not included)... Normal [facility] ANES Jennifer 01-09-2019 ANES POST HNO ID: [id number] Author: Peterson Rod Service: Anesthesiology Author Type: Anesthesiologist Type: Anesthesia PostOp Filed: 01/09/2019 11:45 AM Note Text: POST ANESTHESIA EVALUATION NOTE SERVICE DATE: 01/09/2019 SERVICE TIME: 11:45 AM : 1990 Vitals: 01/09/19 0709 01/09/19 1021 Temp: 36.3 ?C (97.3 ?F) 37.2 ?C (98.9 ?F) 01/09/19 0709 01/09/19 1021 01/09/19 1036 BP: 120/68 111/65 110/67 01/09/19 0709 01/09/19 1021 01/09/19 1036 Pulse: 66 85 75 01/09/19 0709 01/09/19 1021 01/09/19 1036 Resp: 20 22 19 01/09/19 0709 01/09/19 1021 01/09/19 1036 SpO2: 100% 100% 97% Validated Vital Signs: Yes POST ANES STATUS: No apparent anesthetic complications. The patient is appropriately hydrated with stable respiratory and cardiovascular status. Patient has safe and adequate airway control. The patient has appropriate pain relief and no significant post operative nausea or vomiting. The patient has achieved baseline mental status. Intra-Operative Events: No Significant Anesthesia Events Further assessment by Anesthesia Service: None Other Remarks: SIGNATURE: Pteerson Rod MD PATIENT NAME: Uzma Gallego DATE: January 09, 2019 TIME: 11:45 AM PAGER/CONTACT #: [phone] [facility] ANES PREOPon 01-09-2019 ANES PREOP HNO ID: [id number] Author: Peterson Rod Service: Anesthesiology Author Type: Anesthesiologist Type: Anesthesia PreOp Filed: 01/09/2019 8:15 AM Note Text: ANESTHESIOLOGY DAY OF SURGERY NOTE SERVICE DATE: 01/09/2019 SERVICE TIME: 8:15 AM : 1990 Procedure(s) (LRB): SEPTOPLASTY (N/A) COBLATION TURBINATES SUPERFICIAL (Bilateral) MYRINGOTOMY W/ ASPIRATION / EUSTACHIAN TUBE INFLATION (Bilateral) Surgeon(s): Cecille Hoyt MD Estimated body mass index is 21.51 kg/m? as calculated from the following: Height as of 12/21/18: 160 cm (5' 3"). Weight as of 12/21/18: 55.1 kg (121 lb 6.4 oz). Most recent hematocrit and potassium results: Hematocrit 42.9 12/21/2018 Potassium 3.8 12/21/2018 ANES DOS/PREOP NOTE: Vitals: 01/09/19 0709 BP: 120/68 Pulse: 66 Resp: 20 Temp: 36.3 ?C (97.3 ?F) TempSrc: Temporal Artery SpO2: 100% ACTIVE PROBLEM LIST Punctate Keratitis, Bilateral Migraine With Aura Patent Foramen Ovale Seasonal Allergies Dns (Deviated Nasal Septum) Dysfunction of Both Eustachian Tubes Nasal Turbinate Hypertrophy PAST MEDICAL HISTORY Diagnosis Date - Eustachian tube dysfunction - Migraine with aura - Patent foramen ovale 01/2018 - Seasonal allergies - Tonsil stone PAST SURGICAL HISTORY Procedure Laterality Date - PAST SURGICAL HISTORY OF Bilateral surgical correction of tear duct blockage - PAST SURGICAL HISTORY OF wisdom teeth extraction FAMILY HISTORY Problem Relation Age of Onset - Skin Cancer Mother - other (multiple myeloma) Father at 52 from multiple myeloma - Skin Cancer Maternal Grandmother - other (dementia) Maternal Grandmother - Heart Maternal Grandfather - other (atrial fibrillation) Maternal Grandfather Social History: Social History Tobacco Use - Smoking status: Never Smoker - Smokeless tobacco: Never Used Substance Use Topics - Alcohol use: Yes Comment: 2 times per month - Drug use: No No current facility-administered medications on file prior to encounter. Current Outpatient Medications on File Prior to Encounter: loratadine (CLARITIN) 10 mg tablet Take 1 tablet by mouth once daily. fluticasone (FLONASE) 50 mcg/actuation nasal spray Use 2 Sprays in each nostril once daily. Current Facility-Administered Medications Medication Dose Route Frequency Provider Last Rate Last Dose - lidocaine 10 mg/mL (1 %) 1-2 mg injection (XYLOCAINE) 0.1-0.2 mL INTRADERMAL PRN Cecille Hoyt MD - lactated ringers infusion 5-30 mL/hr INTRAVENOUS CONTINUOUS Cecille Hoyt MD - ceFAZolin iv piggyback 2 g in D5W (iso-osmotic) 100 mL (ANCEF) 2 g INTRAVENOUS Pre-Op Once Cecille Hoyt MD Allergies: ALLERGIES Allergen Reactions - Nickel Rash - Latex Rash - Propranolol Other: See Comments nightmares - Seasonal Allergies Itching DOS EXAM: Adequate NPO status: Yes Anesthetic risks, benefits, alternatives, personnel and consent discussed: Yes Patient agrees to proceed: Yes Previous Anesthesia: No history of adverse event. Airway Assessment: MP 1; Neck ROM: Full ROM without neurologic symptoms; Airway Evaluation: No significant abnormalities Symptoms of Sleep Apnea: None Dentition: Teeth intact Additional Physical Exam: Lungs: Patient health status unchanged since recent history and physical. See history and physical for exam findings. Cardiac: Patient health status unchanged since recent history and physical. See history and physical for exam findings. Additional Pertinent Findings: N/A Blood Products: Not anticipated for this procedure. Anesthetic Plan: General, Standard ASA Monitors Pain Management Plan: Parenteral or Oral ASA Class: 1 Other Medical Problems: None Chronic Beta Jacob medication administered within 24 hours: N/A I have interviewed and examined the patient. I have reviewed the medical record and/or the pre-anesthesia evaluation, pertinent labs, and test results. Significant changes in the patient's condition since the History and Physical, not otherwise documented in primary service progress notes: No This contains updated information obtained within 48 hours of Surgery/Procedure. SIGNATURE: Peterson Rod MD PATIENT NAME: Uzma Gallego DATE: January 09, 2019 TIME: 8:14 AM CSN: [id number] [facility] OPERATIVE NOon 01-09-2019 OPERATIVE NO HNO ID: [id number] Author: Cecille Hoyt MD Service: Otolaryngology Author Type: Physician Type: Operative Report Filed: 01/09/2019 10:13 AM Note Text: OPERATIVE/PROCEDURE REPORT LOG ID: [id number] SURGERY/PROCEDURE DATE: 01/09/2019 INCISION/PROCEDURE START TIME: 9:25AM INCISION CLOSE/PROCEDURE END TIME: 10:07AM SURGEON(S)/PROCEDURALI ST(S) AND FLAP CURER(S): Surgeon(s) and Role: * Cecille Hoyt MD - Primary No Additional Staff SURGERY/PROCEDURE(S): 1. Bilateral eustachian tube balloon dilation 2. Endoscopic septoplasty 3. Bilateral inferior turbinate outfracture ANESTHESIA: General SURGERY/PROCEDURE DETAILS: The patient was brought into the operating room and laid in a supine position on the operating room table. A surgical huddle was conducted to verify the patient and the procedure to be performed. General anesthesia was induced and the patient's airway was secured with an ET tube. A time out was called. The nasal cavities were sprayed with 0.5% Afrin. A 0 degree endoscope was then used to examine the nasal cavity demonstrating a septal deviation to the right and slightly enlarged inferior turbinates. The right and left nasal cavities were then injected with lidocaine 1% with 1:100,000 epinephrine under endoscopic visualization as were all further parts of the procedure The bilateral inferior turbinates were outfractured with a [place] elevator. Using a 30 degree scope, the right eustachian tube torus was visualized and a Acclarent inflation device was atruamatically inserted until resistance was met in the cartilaginous tube and then inflated to 12atm for 2 min. This then deflated. The torus was found to be expanded. In a similar fashion again using a 30 degree scope, the left eustachian tube torus was visualized and a Acclarent inflation device was atruamatically inserted until resistance was met in the cartilaginous tube and then inflated to 12atm for 2 min. This then deflated. The torus was found to be expanded. Attention was turned to the septoplasty. A #15 blade was used to make a Modified Misha incision at the squamocolumnar junction on the right. A Cordell elevator was used to elevate a mucoperichondrial flap on the right septum. An incision was made through the cartilage using the Cordell elevator then the opposing septal flap was elevated. Using scissors and Artem forceps, the intervening septal cartilage was removed, taking care to leave an approximately 1-cm dorsal and caudal cartilaginous strut for support. There was a small tear on the right. The septum was then noted to be straight on both sides. The incision was closed using interrupted 4-0 plain gut sutures. The nasal cavities were suctioned and there was no bleeding. An OG was passed. She was given back to anesthesia and extubated. She was taken to the PACU in stable condition. PRE-OP/PRE-PROCEDURE DIAGNOSIS: Deviated septum, eustachian tube dysfunction POST-OP/POST-PROCEDURE DIAGNOSIS: same ESTIMATED BLOOD LOSS: 5 mls SPECIMENS: None IMPLANTABLE DEVICES: None DRAINS: None COMPLICATIONS: None PARTICIPATION IN SURGERY/PROCEDURE: I/primary surgeon/proceduralist performed the entire procedure. SIGNATURE: Cecille Hoyt MD PATIENT NAME: Uzma Gallego DATE: January 09, 2019 TIME: 10:06 AM PAGER/CONTACT #: [facility] PT EDon 01-09-2019 PT ED HNO ID: [id number] Author: Mechelle SanonRnNam Gold RN Service: ? Author Type: Registered Nurse Type: Patient Education Filed: 01/09/2019 1:55 PM Note Text: POST OP LEARNING RESPONSE INSTRUCTION PROVIDED TO: Patient and Spouse METHOD OF INSTRUCTION: Written instruction - handouts Verbal instruction PATIENT / FAMILY RESPONSE: Verbalizes understanding of: POST-OPERATIVE INSTRUCTIONS-Correct actions to take to reduce postoperative complications FOLLOW-UP PLAN: Patient instructed to call with any further issues Follow up with Dr Hoyt SUPPLEMENTAL MATERIAL: Post op discharge instructions [place] prescription Surgical site infection FAQs REFERRAL (RECOMMENDATION): None Electronically Signed By: Mechelle Gold RN In Department: [facility] SURGER [facility] PT ED HNO ID: [id number] Author: Jennifer Cheng RN Service: Nursing Author Type: Registered Nurse Type: Patient Education Filed: 01/09/2019 7:10 AM Note Text: PRE OP LEARNING ASSESSMENT PROCEDURE/SURGERY: SURGERY: pre-op READINESS TO LEARN COGNITIVE ABILITY: Alert and oriented MOTIVATION TO LEARN: Interested FAMILY SUPPORT: High - Very involved in pt care PATIENT LEARNS BEST BY: Verbal Instruction FACTORS AFFECTING LEARNING: None PHYSICAL LIMITATIONS AFFECTING LEARNING: None Electronically Signed By: Jennifer Cheng RN In Department: [facility] SURGERY [facility] NURSING PROGon 12-27-2018 Protein mass conc HNO ID: [id number] Author: (Rn) KAMILAH Rashid Service: ? Author Type: Registered Nurse Type: Nursing Progress Note Filed: 12/27/2018 3:51 PM Note Text: PACC Nurse Progress Note History AND Physical: PACC Visit Date: 12/21/18 Original HANDP Date: N/A ED visit Date: N/A Outside HANDP Scanned Date: N/A Labs Within Last 6 Months: CBC: Date 12/21/18 - WNL BMP/CMP: Date 12/21/18 - WNL Imaging Within Last 12 Months: See chart Cardiac Testing: EKG in last 12 Months: Yes: Date: 05/11/18, Comment: Results in chart ECHO Date: 02/14/18, Comment: Results in chart Metabolic Stress 06/02/18 - Results in chart Last Menstrual Period: LMP Date: 12/09/18 Postmenopausal >1yr: No, S/P Hysterectomy: No BMI Percentile (PEDS): N/A Risk Assessment: N/A Anesthesia Review: N/A Narrative: N/A Pre-op Considerations: PFO Chart Check: COMPLETED Jennifer Rashid RN December 27, 2018 3:43 PM [facility] HOSPon 10-06-2018 HOSP Patient:Uzma Gallego MRN: Height:5' 3"(1.6 m) Weight:121 lb 6.4 oz (55.067 kg) Outpatient Medications as of 01/09/19: loratadine (CLARITIN) 10 mg tablet fluticasone (FLONASE) 50 mcg/actuation nasal spray Admission/Clinic Administered Medications as of 01/09/19: lidocaine 10 mg/mL (1 %) 1-2 mg injection (XYLOCAINE) lactated ringers infusion ceFAZolin iv piggyback 2 g in D5W (iso-osmotic) 100 mL (ANCEF) Problem List: Punctate keratitis, bilateral [H16.143] Migraine with aura [G43.109] Patent foramen ovale [Q21.1] Seasonal allergies [J30.2] DNS (deviated nasal septum) [J34.2] Dysfunction of both eustachian tubes [H69.83] Nasal turbinate hypertrophy [J34.3] Allergies: Nickel Latex Propranolol Seasonal Allergies Date Verified: 01/09/19 Lab Values Lab Value Units Date High Low POTA* 3.8 mmol/L 12/21/2018 5.1 3.7 QUYEN* 42.9 % 12/21/2018 46.0 36.0 Progress Notes (OTOL COUNT INCLUDES THE [facility] INDP): Duy King Pss 01/04/2019 12:10 PM Signed Pt called with questions about her surgery. She asked if she will need to have the turbinate reduction. She said she'd rather not unless she really needs it. She'd rather focus on the Septoplasty and eustachian tube. Please call pt at [phone] Clover Fraga RN 01/04/2019 1:58 PM Signed please see below message Cecille Hoyt MD, 01/04/2019 4:48 PM Signed Attempted to reach patient. No answer. Left message. Will attempt to reach again tomorrow. Cecille Hoyt MD Duy King Pss 01/04/2019 4:53 PM Signed Pt returned call, please call her at below # Cecille Hoyt MD, 01/05/2019 1:45 PM Signed Discussed with patient. She is scheduled for septoplasty, bilateral eustachian tube dilation. Will plan for that. No turbinate reduction. [facility] Vital Signs Date Time Vital Sign Value Performing Clinician Facility 12-03-2023 15:32-0400 Body temperature 98.5 [degF] DO Katie [place] [employer] Work Phone: [facility] 12-03-2023 15:32-0400 Diastolic blood pressure 64 mm[Hg] DO Katie [place] [employer] Work Phone: [facility] 12-03-2023 15:32-0400 Heart rate 74 /min DO Katie [place] [employer] Work Phone: [facility] 12-03-2023 15:32-0400 Respiratory rate 14 /min DO Katie Marybel Work Phone: [facility] 12-03-2023 15:32-0400 SaO2% (BldA) [Mass fraction] 98 % DO Katie [place] [employer] Work Phone: [facility] 12-03-2023 15:32-0400 Systolic blood pressure 116 mm[Hg] DO Katie Marybel Work Phone: [facility] 07-08-2023 13:42-0500 Respiratory rate 16 /min DO Katie Marybel Work Phone: [facility] 07-08-2023 12:23-0500 Body height 160.02 cm DO Katie Marybel Work Phone: [facility] 07-08-2023 12:23-0500 Body mass index (BMI) [Ratio] 21.2 kg/m2 DO Katie Marybel Work Phone: [facility] 07-08-2023 12:23-0500 Body temperature 98 [degF] DO Katieadrianne Bonillanger Work Phone: [facility] 07-08-2023 12:23-0500 Body weight 54.4 kg DO Katie Marybel Work Phone: [facility] 07-08-2023 12:23-0500 Diastolic blood pressure 70 mm[Hg] DO Katie Marybel Work Phone: [facility] 07-08-2023 12:23-0500 Heart rate 70 /min DO Katieadrianne Bonillanger Work Phone: [facility] 07-08-2023 12:23-0500 SaO2% (BldA) [Mass fraction] 99 % DO Katie Marybel Work Phone: [facility] 07-08-2023 12:23-0500 Systolic blood pressure 118 mm[Hg] DO Katie Marybel Work Phone: [facility] 05-05-2023 15:32-0400 Body mass index (BMI) [Ratio] 20.5 kg/m2 DO Katie Marybel Work Phone: [facility] 05-05-2023 15:32-0400 Body weight 52.61 kg DO Katie Marybel Work Phone: [facility] 05-05-2023 15:32-0400 Diastolic blood pressure 70 mm[Hg] DO Katie Marybel Work Phone: [facility] 05-05-2023 15:32-0400 Systolic blood pressure 110 mm[Hg] DO Katie Marybel Work Phone: [facility] 03-30-2023 07:08-0400 Body mass index (BMI) [Ratio] 20.1 kg/m2 DO Katie Marybel Work Phone: [facility] 03-30-2023 07:08-0400 Body temperature 101.1 [degF] DO Katie Marybel Work Phone: [facility] 03-30-2023 07:08-0400 Body weight 52.87 kg DO Katieadrianne Bonillanger Work Phone: [facility] 03-30-2023 07:08-0400 Diastolic blood pressure 72 mm[Hg] DO Katie Marybel Work Phone: [facility] 03-30-2023 07:08-0400 Heart rate 90 /min DO Katie Marybel Work Phone: [facility] 03-30-2023 07:08-0400 Respiratory rate 14 /min DO Katieadrianne Bonillanger Work Phone: [facility] 03-30-2023 07:08-0400 SaO2% (BldA) [Mass fraction] 95 % DO Katie Marybel Work Phone: [facility] 03-30-2023 07:08-0400 Systolic blood pressure 118 mm[Hg] DO Katie Marybel Work Phone: [facility] 01-05-2022 09:43-0400 Body height 160 cm Braulio Borden MD Work Phone: [facility] 01-05-2022 09:43-0400 Body weight 53.34 kg Braulio Borden MD Work Phone: [facility] 01-05-2022 09:43-0400 Diastolic blood pressure 56 mm[Hg] Braulio Borden MD Work Phone: [facility] 01-05-2022 09:43-0400 Systolic blood pressure 92 mm[Hg] Braulio Borden MD Work Phone: [facility] 12-17-2021 10:43-0400 Body weight 53.52 kg Jennifer Kearney FISHERIES TECHNICIAN.CNM Work Phone: [facility] 12-17-2021 10:43-0400 Diastolic blood pressure 70 mm[Hg] Jennifer Kearney FISHERIES TECHNICIAN.CNM Work Phone: [facility] 12-17-2021 10:43-0400 Systolic blood pressure 110 mm[Hg] Jennifer Kearney FISHERIES TECHNICIAN.CNM Work Phone: [facility] Encounters Encounter Date Encounter Type Care Provider Facility Start: 03-21-2025 End: 03-21-2025 ambulatory Umu Altamirano Facility:[facility] Start: 03-21-2025 End: 03-21-2025 Patient encounter procedure Cathy PEACOCK [facility] Work Phone: Start: 12-27-2024 End: 12-27-2024 ambulatory Umu Altamirano MD Work Phone: [facility] Work Phone: Start: 12-27-2024 End: 12-27-[address] Umu Altamirano MD -Laboratory Work Phone: Start: 12-27-2024 End: 12-27-2024 ambulatory Umu Altamirano Facility:[facility] Start: 08-03-2024 End: 08-03-2024 Emergency department patient visit [facility] Facility:[facility] Start: 05-22-2024 Encounter for gynecological examination (general) (routine) without abnormal findings Pina Babcock [facility] Start: 05-22-2024 End: 05-22-2024 ambulatory Umu Altamirano Facility:[facility] Start: 03-20-2024 End: 03-20-2024 ambulatory Umu Altamirano Facility:[facility] Start: 12-03-2023 End: 12-03-2023 ambulatory DO Katie No Work Phone: [facility] Work Phone: Start: 12-03-2023 End: 12-03-2023 Patient encounter procedure DO Katie No Work Phone: [facility]-Laboratory, Specimen Work Phone: Start: 12-03-2023 End: 12-03-2023 Patient encounter procedure DO Katie No Work Phone: [facility] Work Phone: Start: 11-16-2023 End: 11-16-2023 ambulatory [facility] Work Phone: Start: 11-16-2023 End: 11-16-2023 [facility] Start: 11-16-[address] [facility] Start: 07-08-2023 End: 07-08-2023 Emergency department patient visit DO Katie No Work Phone: [facility]-Emergency Department Work Phone: Start: 05-05-2023 End: 05-05-2023 Patient encounter procedure DO Katie No Work Phone: [facility]-Laboratory, Specimen Work Phone: Start: 05-05-2023 End: 05-05-2023 Patient encounter procedure DO Katie No Work Phone: [facility] Work Phone: Start: 05-03-2023 End: 05-03-2023 Patient encounter procedure DO Katie No Work Phone: [facility]Laboratory Work Phone: Start: 03-30-2023 End: 03-30-2023 Patient encounter procedure DO Katie No Work Phone: [facility] Work Phone: Start: 03-11-2023 End: 03-11-2023 ambulatory [facility] Work Phone: Start: 03-11-2023 End: 03-11-2023 Patient encounter procedure [facility] Work Phone: Start: 01-26-2023 End: 01-26-2023 ambulatory [facility] Work Phone: Start: 01-26-2023 End: 01-26-2023 Patient encounter procedure [facility]Labor[facility] Work Phone: Start: 12-15-2022 End: 12-15-2022 Patient encounter procedure [facility]Ultrasound, [facility] Work Phone: Start: 12-10-2022 End: 12-10-2022 Patient encounter procedure [facility]Laboratory Work Phone: Start: 08-15-2022 End: 08-15-2022 ambulatory CARIDAD RIVAS Facility:[facility] Start: 07-23-2022 End: 07-23-2022 ambulatory PICKEREL Kimberly [facility] Facility:[facility] Start: 07-23-2022 End: 07-23-2022 Nursing evaluation of patient and report Nurse Mitchel [facility] Work Phone: Reproductive Endocrinology Infertility Comment on above: Fertility testing (P rimary Dx) Start: 07-15-2022 Telephone encounter Sara rene FISHERIES TECHNICIAN.SYSTEMS SPEC Work Phone: Occupational Health Comment on above: [facility] Start: 07-14-2022 Telephone encounter Jamil bello FISHERIES TECHNICIAN.SYSTEMS SPEC Work Phone: Occupational Health Comment on above: [facility] Start: 07-10-2022 Telephone encounter Piedad paniagua MD Work Phone: Occupational Health Comment on above: [facility] Start: 07-10-2022 End: 07-10-2022 ambulatory MAXIME IVEY Facility:[facility] Start: 06-22-2022 End: 06-23-2022 ambulatory MINA VARELA Facility:[facility] Comment on above: Infertility, female (Primary Dx); Encounter for fertility planning; Encounter for procreative management Start: 06-22-2022 End: 06-22-2022 Telemedicine consultation with patient Mina Varela MD Work Phone: [facility] Start: 05-13-2022 ambulatory MINA VARELA [facility] Start: 04-08-2022 End: 04-08-2022 ambulatory MINA VARELA Facility:[facility] Start: 04-08-2022 End: 04-08-2022 Patient encounter procedure Mina Varela MD Work Phone: Reproductive Endocrinology Infertility Comment on above: Fallopian insufflati on for fertility testing examinatio n or test, unconfirmed (Primary Dx) Start: 04-08-2022 End: 04-08-2022 Subsequent hospital visit by physician [facility] Comment on above: Encounter for fertil ity testing [Z31.41] Start: 04-03-2022 End: 04-03-2022 Patient encounter procedure Yamila Villasenor MD Work Phone: OB/Gynecology Comment on above: Female infertility ( Primary Dx) Start: 04-03-2022 End: 04-03-2022 ambulatory MAXIME IVEY Facility:[facility] Start: 04-03-2022 End: 04-04-2022 ambulatory MAXIME IVEY Facility:[facility] Start: 03-30-2022 End: 03-30-2022 ambulatory MINA VARELA Facility:[facility] Start: 03-27-2022 End: 03-27-2022 ambulatory Mina Varela MD Work Phone: Reproductive Endocrinology Infertility Comment on above: Testing instructions Start: 03-27-2022 E-mail encounter fro m caregiver Mina Varela MD Work Phone: [facility] Start: 01-20-2022 End: 01-20-2022 ambulatory Jeni Craft OD Work Phone: Ophthalmology Comment on above: Macular Degeneration Family History Start: 01-20-2022 End: 01-20-2022 Patient encounter procedure Jeni Craft OD Work Phone: Ophthalmology Comment on above: Regular astigmatism of both eyes (Primary Dx) Start: 01-05-2022 End: 01-05-2022 ambulatory MAXIME IVEY Facility:[facility] Start: 01-05-2022 End: 01-05-2022 Patient encounter procedure Braulio Borden MD Work Phone: OB/Gynecology Comment on above: Encounter for gyneco logical examination without abnormal finding (Primary Dx) Start: 01-05-2022 End: 01-05-2022 Patient encounter status Braulio Borden MD Work Phone: OB/Gynecology Start: 01-03-2022 End: 01-03-2022 ambulatory MAXIME IVEY Facility:[facility] Start: 12-18-2021 End: 12-18-2021 ambulatory [facility] Facility:[facility] Start: 12-17-2021 End: 12-17-2021 ambulatory [facility] Facility:[facility] Start: 12-17-2021 End: 12-17-2021 Patient encounter procedure Jennifer Kearney APRN.CNM Work Phone: OB/Gynecology Comment on above: Female infertility ( Primary Dx) Start: 02-24-2018 Ambulatory MAXIME IVEY Fac ility:[facility] Start: 03-05-2017 Ambulatory Becky Mancini y:[place] Procedures Date Procedure Procedure Detail Performing Clinician Start: 12-27-2024 Vitamin D, 25-hydrox y measurement Umu Altamirano MD Work Phone: Comment on above: Vitamin D StatusDefi ciency: <20 ng/mL (50nmol/L)Insufficiency: 20-30 ng/mL (50-75 nmol/L)Sufficiency: 30-100 ng/mL (75-250 nmol/L)Toxicity: >100 ng/mL (>250 nmol/L) Start: 12-03-2023 Urine culture DO Zenobia No Work Phone: Start: 12-15-2022 US scan of thyroid Start: 08-15-2022 Antibody screen SARAH IVEY Comment on above: Order Comment: Speci men Type: BLOOD SPECIMENOrdering Facility: [facility] Address: [address] [place] [address] Performed By: #### T SCR ####CC MAIN BLOOD BANKCLIA [id number] [facility] [id number] Start: 04-08-2022 Urine test visual color cmprsn meths Mina Varela MD Work Phone: Plan of Treatment Date Care Activity Detail Author Start: 02-25-2030 Urine microalbumin profile DTAP,TDAP,TD (4 - Td or Tdap) [facility] Start: 07-18-2024 HPV TESTING HPV TESTING [facility] Start: 07-18-2024 PAP TESTING PAP TESTING [facility] Start: 07-08-2023 [facility] Start: 07-08-2023 Hepatitis B surface antigen measurement [facility] Start: 07-08-2023 Hepatitis C antibody measurement [facility] Start: 07-23-2022 End: 09-22-2022 Chlamydia trachomatis+Neisseria gonorrhoeae DNA [Presence] in Urine by BECCA with probe detection GC/CHLAMYDIA AMPLIF, URINE Microbiology Routine Fertility testing Expected: 07/23/2022, Expires: 09/22/2022 [facility] Work Phone: Comment on above: Expected: 07/23/2022 , Expires: 09/22/2022 Start: 07-23-2022 End: 09-22-2022 Hepatitis B virus core Ab [Presence] in Serum HEP B CORE AB TOTAL Lab Routine Fertility testing Expected: 07/23/2022, Expires: 09/22/2022 [facility] Work Phone: Comment on above: Expected: 07/23/2022 , Expires: 09/22/2022 Start: 07-23-2022 End: 09-22-2022 Hepatitis B virus surface Ag [Presence] in Serum HEP B SURF AG SCRN Lab Routine Fertility testing Expected: 07/23/2022, Expires: 09/22/2022 [facility] Work Phone: Comment on above: Expected: 07/23/2022 , Expires: 09/22/2022 Start: 07-23-2022 End: 09-22-2022 Hepatitis C virus Ab [Presence] in Serum HEP C AB IA W/CONF SCRN Lab Routine Fertility testing Expected: 07/23/2022, Expires: 09/22/2022 [facility] Work Phone: Comment on above: Expected: 07/23/2022 , Expires: 09/22/2022 Start: 07-23-2022 End: 09-22-2022 HIV 1+2 Ab [Presence] in Serum or Plasma by Immunoassay HIV 1 2 COMBO(AG/AB),WITH REFLEX TO DIFFERENTIATION Lab Routine Fertility testing Expected: 07/23/2022, Expires: 09/22/2022 [facility] Work Phone: Comment on above: Expected: 07/23/2022 , Expires: 09/22/2022 Start: 07-23-2022 End: 09-22-2022 SYPHILIS TOTAL W/REFLEX SYPHILIS TOTAL W/REFLEX Lab Routine Fertility testing Expected: 07/23/2022, Expires: 09/22/2022 [facility] Work Phone: Comment on above: Expected: 07/23/2022 , Expires: 09/22/2022 Start: 07-23-2022 End: 09-22-2022 TYPE + SCREEN TYPE + SCREEN Blood Bank Routine Fertility testing Expected: 07/23/2022, Expires: 09/22/2022 [facility] Work Phone: Comment on above: Expected: 07/23/2022 , Expires: 09/22/2022 Start: 04-02-2022 Influenza vaccination INFLUENZA (#1) [facility] Start: 2022 End: 12-17-2022 PROGESTERONE BLD PROGESTERONE BLD Lab Routine Female infertility Expected: 2022, Expires: 12/17/2022 [facility] Work Phone: Comment on above: Expected: 2022 , Expires: 12/17/2022 Start: 12-02-2021 COVID-19 VACCINE (3 - Booster for Pfizer series) COVID-19 VACCINE (3 - Booster for Pfizer series) [facility] Start: 08-29-2021 COVID-19 VACCINE (3 - Booster for Pfizer series) COVID-19 VACCINE (3 - Booster for Pfizer series) [facility] Start: 1990 HEPATITIS B (1 of 3 - 3-dose series) HEPATITIS B (1 of 3 - 3-dose series) [facility] Clostridioides diffi cile DNA [Presence] in Unspecified specimen by BECCA with probe detection [facility] Giardia lamblia Ag [Presence] in Stool by Immunoassay [facility] Hepatitis B virus surface IgG Ab [Presence] in Serum [facility] HIV 1+2 Ab+HIV1 p24 Ag [Presence] in Serum or Plasma by Immunoassay [facility] Lactoferrin [Presenc e] in Stool by Immunoassay [facility] Nucleic acid assay [facility] Ova OR parasites identification [facility] Patient Education ED Body Fluid Exposure Not ... ED Eye Exposure, Chemical [facility] Work Phone: Patient referral [facility] Work Phone: Procedure [facility] Progesterone [Mass/volume] in Serum or Plasma [facility] Protein measurement [facility] Immunizations Immunization Date Immunization Notes Care Provider [facility] 05-31-2024 influenza, seasonal, injectable, preservative free Umu Altamirano MD Work Phone: [facility] 05-20-2023 influenza, injectabl e, quadrivalent, preservative free DO Katie No Work Phone: [facility] 05-20-2022 influenza virus vaccine, unspecified formulation Piedad Parmar MD Work Phone: [facility] 05-20-2022 influenza, injectabl e, quadrivalent, preservative free DO Katie No Work Phone: [facility] 05-20-2022 influenza, seasonal, injectable [facility] 07-04-2021 COVID-19 vaccine, ag e 12+ yr (PFIZER-BIONTCeros - PURPLE TOP) Jennifer Kearney APRN.CNM Work Phone: [facility] 06-08-2021 Covid (Pfizer) [facility] 05-06-2021 influenza virus vaccine, unspecified formulation Jennifer Kearney APRN.CNM Work Phone: [facility] 05-15-2020 influenza virus vaccine, unspecified formulation Jennifer Kearney APRN.CNM Work Phone: [facility] Work Phone: 02-26-2020 tetanus toxoid, redu luan diphtheria toxoid, and acellular pertussis vaccine, adsorbed Jennifer Kearney APRN.CNM Work Phone: [facility] 05-15-2019 influenza virus vaccine, unspecified formulation Jennifer Caio PORTERN.CNM Work Phone: [facility] Work Phone: 05-24-2018 influenza virus vaccine, unspecified formulation Jennifer Kearney FISHERIES TECHNICIAN.CNM Work Phone: [facility] 05-07-2017 influenza virus vaccine, unspecified formulation Jennifer Kearney FISHERIES TECHNICIAN.CNM Work Phone: [facility] 07-27-2007 human papilloma viru s vaccine, quadrivalent Jennifer Kearney APRN.CNM Work Phone: [facility] Work Phone: 03-27-2002 TD(adult) unspecifie d formulation Jennifer Caio PORTERN.CNM Work Phone: [facility] Work Phone: Payers Date Payer Category Payer Unknown [id number] 2024 Self-pay 2023 Unknown [id number] 2022 Private Health Insurance EHP AET NA EHP STAFF/NON STAFF / EHP [facility] [id number] 2022-Present [address] [place] [address] EPO [id number] 2021 Private Health Insurance EHP AET NA EHP STAFF/NON STAFF / EHP [facility] [id number] 2021-Present [address] [place] [address] EPO [id number] 2021 Unknown [id number] Unknown [id number] Unknown [id number] Unknown [id number] Unknown [id number] Unknown [id number] Unknown [id number] Social History Date Type Detail Facility Start: 01-08-2017 End: 08-03-2024 Tobacco smoking status NHIS Never smoked tobacco [facility] Start: 01-08-2017 End: 07-23-2022 Tobacco use and exposure Smokeless tobacco non-user [facility] Start: 12-17-2021 End: 07-23-2022 Alcohol intake Current drinker of alcohol (finding) [facility] Start: 02-23-2020 End: 02-20-2021 History SDOH Alcohol Frequency 2 [facility] Start: 02-23-2020 End: 02-20-2021 History SDOH Alcohol Std Drinks 1 [facility] Start: 01-08-2017 History SDOH Alcohol Comment 2 times per month [facility] Start: 02-23-2020 History SDOH Social Connections Phone 5 [facility] Start: 02-23-2020 History SDOH Social Connections Meetings 3 [facility] Start: 02-23-2020 History SDOH Physica l Activity DPW 0 [facility] Start: 02-23-2020 History SDOH Stress 4 [facility] Start: 02-22-2020 Education 18 [facility] Start: 1990 Sex Assigned At Female C [facility] Start: 12-26-2021 End: 04-08-2022 Exposure to SARS-CoV-2 (event) Not sure [facility] Start: 07-08-2023 End: 07-08-2023 Tobacco smoking status NHIS Unknown if ever smoked [facility] Clinical Notes 12-17-2021 to 05-05-2023 Charlene Ken RN - 07/23/2022 9:22 AM ESTTelephone Encounter - Sara Wilder APRN.JULIO - 07/15/2022 7:15 PM ESTTelephone Encounter - Jamil Lewis APRN.JULIO - 07/14/2022 5:47 PM EST Note Date & Type Note Facility 05-05-2023 Note [facility] Pap Smear Specimen Adequacy May 05, 2023 3:55pm Comment . Satisfactory for evaluation. Endocervical and/or squamous metaplasticcells (endocervical component) are present. Comment on above: Satisfactory for lillian luation. Endocervical and/or squamous metaplasticcells (endocervical component) are present. 07-23-2022 Note HNO ID: [id number] Author: Charlene Ken RN Service: ? Author Type: ? Type: Progress Notes Filed: 07/23/2022 11:22 AM Note Text: Patient had an IVF consult with Mina Varela MD. Present for the phone call today is patient and she is by herself. Identified patient by name and date of . Yes. Chief Complaint- Infertility Medications and allergies reviewed and updated. Yes. History reviewed: OB, Medical, Surgical, and Substance AND Sexuality- Yes. Pre IVF requirements reviewed- Yes. Pre IVF requirements sent to the patient via Minboxt- Yes Patient reminded to call us with start of periods- Yes Previous Fertility Treatment? - no G 0P 0 AB 0 LMP 11/24, Cycles- 28-30 days Episode created- yes / Protocol- antagonist Will monitor at [facility] women yearly exam/PAP - done Uterine Eval - needs Mammo needed (39yo) - n/a [facility]H- 3.99 Pt. Labs: Type AND Screen, HIV 1AND2, Syphilis (RPR), Hepatitis B Core AB, Hepatitis B Surface AG, Hepatitis C AB, Rubella, Varicella, GC/Chlam - needs My[facility] carrier screening - needs Partner STD: HIV 1AND2, Syphilis (RPR) Hepatitis B Core AB, Hepatitis B Surface AG, GC/Chlam - needs SA/Freeze Backup - ? done PGTA/M - No Financial/Coverage- [facility] discussed Psych Consult- n/a Donor Sperm- n/a IVF / Embryo - Nursing reviewed with patient and Sent via HomeStarshart Is there anything special we should know about your medical history: Any artificial parts, pins, limbs, lines, drains, ports, implants, prosthetics- Patient Declines Medical problems- Patient Declines Diabetes- Patient Declines / (For DM - last eye appt n/a, MFM appt n/a) Sleep apnea- Patient Declines / CPAP machine no Blood clots or history of hematology issues- Patient Declines Any Latex allergies Yes. control use in past? No. Any contraindications? Yes / migraines Yes / smoking No / blood clots No RN Discussed: Nursing reviewed with patient all below Vacations and Traveling / Covid-19 / Weekend monitoring and retrieval / Time-off work MyChart use with plans, instructions results, appts. No jumping, bouncing, heavy lifting, or high impact activity during IVF cycle. Risk of ovarian torsion. No Motrin, Advil, Ibuprofen, etc. Tylenol or Acetaminophen only. Team approach of doctors and nurses. Stimulation can go 10-14 days. IVF appointments in the morning, called monitoring, which consist of ultrasound and bloodwork. Noon meeting with MD to discuss results/POC. Nurse call patient in afternoon with plan and send MyChart, schedule next appt. Patient and Partner verbally agreed on 07/23 not to order medication until all of the above requirements are completed, and they have been formally instructed to order medication. Patient and Partner verbally agreed on 07/23 to share their medical information with each other. 07/23 will be available and with patient before and after surgery. To do: STD testing Myriad testing Natural start due to migraine with aura [facility] 07-23-2022 History of Present illness Narrative Patient had an IVF consult with Mina Varela MD. Present for the phone call today is patient and she is by herself. Identified patient by name and date of . Yes. Chief Complaint- Infertility Medications and allergies reviewed and updated. Yes. History reviewed: OB, Medical, Surgical, and Substance & Sexuality- Yes. Pre IVF requirements reviewed- Yes. Pre IVF requirements sent to the patient via Minboxt- Yes Patient reminded to call us with start of periods- Yes Previous Fertility Treatment? - no G 0P 0 AB 0 LMP 06/25, Cycles- 28-30 days Episode created- yes / Protocol- antagonist Will monitor at [facility] women yearly exam/PAP - done Uterine Eval - needs Mammo needed (39yo) - n/a AMH- 3.99 Pt. Labs: Type & Screen, HIV 1&2, Syphilis (RPR), Hepatitis B Core AB, Hepatitis B Surface AG, Hepatitis C AB, Rubella, Varicella, GC/Chlam - needs Myriad carrier screening - needs Partner STD: HIV 1&2, Syphilis (RPR) Hepatitis B Core AB, Hepatitis B Surface AG, GC/Chlam - needs SA/Freeze Backup - ? done PGTA/M - No Financial/Coverage- [facility] Reunite discussed Psych Consult- n/a Donor Sperm- n/a IVF / Embryo - Nursing reviewed with patient and Sent via Minboxt Is there anything special we should know about your medical history: Any artificial parts, pins, limbs, lines, drains, ports, implants, prosthetics- Patient Declines Medical problems- Patient Declines Diabetes- Patient Declines / (For DM - last eye appt n/a, MFM appt n/a) Sleep apnea- Patient Declines / CPAP machine no Blood clots or history of hematology issues- Patient Declines Any Latex allergies Yes. control use in past? No. Any contraindications? Yes / migraines Yes / smoking No / blood clots No RN Discussed: Nursing reviewed with patient all below Vacations and Traveling / Covid-19 / Weekend monitoring and retrieval / Time-off work [employer] use with plans, instructions results, appts. No jumping, bouncing, heavy lifting, or high impact activity during IVF cycle. Risk of ovarian torsion. No Motrin, Advil, Ibuprofen, etc. Tylenol or Acetaminophen only. Team approach of doctors and nurses. Stimulation can go 10-14 days. IVF appointments in the morning, called monitoring, which consist of ultrasound and bloodwork. Noon meeting with MD to discuss results/POC. Nurse call patient in afternoon with plan and send MyChart, schedule next appt. Patient and Partner verbally agreed on 07/23 not to order medication until all of the above requirements are completed, and they have been formally instructed to order medication. Patient and Partner verbally agreed on 07/23 to share their medical information with each other. 07/23 will be available and with patient before and after surgery. To do: STD testing Myriad testing Natural start due to migraine with aura documented in this encounter [facility] 07-15-2022 Miscellaneous Notes CG filled out MyChart survey. Cleared to RTW. Will notify manager inventory management. Sara Wilder APRN.JULIO documented in this encounter [facility] 07-14-2022 Miscellaneous Notes Day 5. Survey complete. Not cleared to RTW. Declining [facility] outreach at this time. Will continue to follow Survey results. Jamil Lewis APRN.CNP documented in this encounter [facility] 07-10-2022 Miscellaneous Notes CG reports positive rapid covid test / covid symptoms. Test date: 07/10/22 Sx onset: 07/09/22 Sx: JENKINS, congestion, sore throat, body aches Cg listed on pos cg report documented in this encounter [facility] 07-10-2022 Influenza virus A and B RNA and SARS-CoV-2 (COVID-19) N gene panel BECCA+probe (Resp) COVID 19 RESULT: SARS-CoV-2 (Agent of COVID-19) Detected by RT-PCR or equivalent method. anusha [id number] (DONOVAN)_EUA This test was developed and its performance characteristics determined by [facility]'s [facility] [place]. This test has been authorized by FDA under an Emergency Use Authorization (EUA). This test has been validated in accordance with the FDA's Guidance Document "Policy for Diagnostics Testing in Laboratories Certified to Perform High Complexity Testing under CLIA prior to Emergency use Authorization for Coronavirus Disease 2019 during the Public Health Emergency" issued on September 30, 2019. Test performed by [facility], [facility] [place], [address] [place] [address]. INFLUENZA A PCR: Negative for Influenza A by RT-PCR INFLUENZA B PCR: Negative for Influenza B by RT-PCR [facility] Comment on above: Performed By: #### [id number] ####[facility] LABCL[facility] [id number] [address] [place] 06-22-2022 Consult note Formatting of th is note is different from the original. VIRTUAL VISIT PROGRESS NOTE This is a virtual visit using Audio only. It required patient-provider interaction for the medical decision making as documented below. Date of Consult: 06/22/2022 Consultation Requested By: Self-referred Uzma Gallego is a 32 year old female presenting with the following history: HISTORY OF PRESENT ILLNESS: Uzma Gallego is a 32 year old female Attempting to conceive 05/2021 Menstrual cycle irregularity: 28 day interval OPK+ PMHx: Migraine with aura (OCP related) PSHx: Septoplasty. Eustachion tubes. Tooth extraction OBHx: Denies Meds: MVI. Seasonal allergy Desire for future fertility *Discussed frustration with lack of conception *Discussed CC and LET + IUI *Discussed IVF planning/procedures/processes 39 year old male partner without proven fertility PMHx: Denies PSHx: Hernia repair Meds: Denies SA: 99/78%/4% Notes from previous encounter: 32 year old female Attempting to conceive 05/2021 Menstrual cycle irregularity: 28 day interval OPK+ PMHx: Migraine with aura (OCP related) PSHx: Septoplasty. Eustachion tubes. Tooth extraction OBHx: Denies Meds: MVI. Seasonal allergy Desire for future fertility 39 year old male partner without proven fertility PMHx: Denies PSHx: Hernia repair Meds: Denies SA: 99/78%/4% Notes from previous encounter: 32 year old female Attempting to conceive 05/2021 Menstrual cycle irregularity: 28 day interval OPK+ PMHx: Migraine with aura (OCP related) PSHx: Septoplasty. Eustachion tubes. Tooth extraction OBHx: Denies Meds: MVI. Seasonal allergy Desire for future fertility 39 year old male partner without proven fertility PMHx: Denies PSHx: Hernia repair Meds: Denies SA: 99/78%/4% Obstetric History T0 L0 SAB0 IAB0 Ectopic0 Multiple0 Live Births0 Fertility Evaluations and Treatments: Eval Checklist Results Date Comments HSG Not done Hysteroscopy Not done Laparoscopy Not done OPK (Ovulation Predictor Kit) Normal Ovarian [place] Normal Saline Ultrasound Not done Semen Analysis Normal Ultrasound Not done Other (See comments) Not done MENSTRUAL HISTORY: Menarche Age: 11 Length of Cycle: 28 Regular Days: 4 Menstrual Flow: Menstrual Symptoms: Breast Tenderness,Mood Changes,Bloating Patient's last menstrual period was 12/16/2021. PAST MEDICAL HISTORY Diagnosis Date Anxiety with depression seasonal Deviated septum Eustachian tube dysfunction Migraine with aura Patent foramen ovale 01/[address] 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 EPINEPHrine (AUVI-Q) 0.3 mg/0.3 mL auto-injector Inject 0.3 mL intramuscularly as needed. For allergic reaction.Seek emergent medical care immediately after use.Disp:1 2-packw/instructor trainer canine service cholecalciferol, vitamin D3, (VITAMIN D3 ORAL) Take by mouth. albuterol HFA (VENTOLIN HFA) 90 mcg/actuation inhaler Inhale 2 Puffs as instructed every 4 hours as needed. mv-min/iron/folic/calcium/vitK (WOMEN'S MULTIVITAMIN ORAL) No current facility-administered medications on file prior to visit. ALLERGIES: Beta Blockers [Beta-Blockers (Beta-Adrenergic Blocking Agts)], Latex, Nickel, Lexapro [Escitalopram Oxalate], Propranolol, Seasonal Allergies, and Vistaril [Hydroxyzine Hcl] Blood Type: NA ASSESSMENT: 32 year old female Attempting to conceive 05/2021 Menstrual cycle irregularity: 28 day interval OPK+ PMHx: Migraine with aura (OCP related) PSHx: Septoplasty. Eustachion tubes. Tooth extraction OBHx: Denies Meds: MVI. Seasonal allergy Desire for future fertility *Discussed frustration with lack of conception *Discussed CC and LET + IUI *Discussed IVF planning/procedures/processes 39 year old male partner without proven fertility PMHx: Denies PSHx: Hernia repair Meds: Denies SA: 99/78%/4% Notes from previous encounter: 32 year old female Attempting to conceive 05/2021 Menstrual cycle irregularity: 28 day interval OPK+ PMHx: Migraine with aura (OCP related) PSHx: Septoplasty. Eustachion tubes. Tooth extraction OBHx: Denies Meds: MVI. Seasonal allergy Desire for future fertility 39 year old male partner without proven fertility PMHx: Denies PSHx: Hernia repair Meds: Denies SA: 99/78%/4% PLAN: IVF cycle planning: Antagonist. FSH 100. No LD hCG. Dual trigger STI/FDA infectious disease screening tests SIS or office hysteroscopy prior to FET Carrier screening Financial Team: Discuss medical insurance benefits and likely [id number] costs of IVF. IVF nurse coordinator: Schedule IVF nurse teaching. Order meds. Prepare IVF cycle schedule/flowsheet. Sign consents. Dr Varela: Review lab test results. Determine IVF stimulation protocol and medications dosage. Consultation with couple prior to IVF start if questions, abnormal lab test values or other concerns arise. Notes from previous encounter: Initial evaluation: Hormone values: Normal HSG Pelvic US SA: Normal Follow-up visit: In-person office visit or virtual visit to review and discuss initial work-up results to determine treatment plan I spent a total of 28 minutes on the date of the service which included preparing to see the patient, [id number] patient care, completing clinical documentation, obtaining and/or reviewing separately obtained history, counseling and educating the patient/family/caregiver, communicating with other HCPs (not separately reported), independently interpreting results (not separately reported), and communicating results to the patient/family/caregiver. Mina Varela MD June 22, 2022 4:50 PM documented in this encounter [facility] 05-13-2022 Note HNO ID: [id number] Author: Mina Varela MD Service: ? Author Type: Physician Type: Progress Notes Filed: 05/24/2022 11:30 PM Note Text: VIRTUAL VISIT PROGRESS NOTE This is a virtual visit using BluPanda video visit. It required patient-provider interaction for the medical decision making as documented below. Date of Consult: 05/13/2022 Consultation Requested By: Self-referred Uzma Gallego is a 32 year old female presenting with the following history: HISTORY OF PRESENT ILLNESS: Uzma Gallego is a 32 year old female Attempting to conceive 05/2021 Menstrual cycle irregularity: 28 day interval OPK+ PMHx: Migraine with aura (OCP related) PSHx: Septoplasty. Eustachion tubes. Tooth extraction OBHx: Denies Meds: MVI. Seasonal allergy Desire for future fertility 39 year old male partner without proven fertility PMHx: Denies PSHx: Hernia repair Meds: Denies SA: 99/78%/4% Notes from previous encounter: 32 year old female Attempting to conceive 05/2021 Menstrual cycle irregularity: 28 day interval OPK+ PMHx: Migraine with aura (OCP related) PSHx: Septoplasty. Eustachion tubes. Tooth extraction OBHx: Denies Meds: MVI. Seasonal allergy Desire for future fertility 39 year old male partner without proven fertility PMHx: Denies PSHx: Hernia repair Meds: Denies SA: 99/78%/4% Obstetric History T0 L0 SAB0 IAB0 Ectopic0 Multiple0 Live Births0 Fertility Evaluations and Treatments: Eval Checklist Results Date Comments HSG Not done Hysteroscopy Not done Laparoscopy Not done OPK (Ovulation Predictor Kit) Normal Ovarian [place] Normal Saline Ultrasound Not done Semen Analysis Normal Ultrasound Not done Other (See comments) Not done MENSTRUAL HISTORY: Menarche Age: 11 Length of Cycle: 28 Regular Days: 4 Menstrual Flow: Menstrual Symptoms: Breast Tenderness,Mood Changes,Bloating Patient's last menstrual period was 12/16/2021. PAST MEDICAL HISTORY Diagnosis Date Anxiety with depression seasonal Deviated septum Eustachian tube dysfunction Migraine with aura Patent foramen ovale 01/[address] 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 EPINEPHrine (AUVI-Q) 0.3 mg/0.3 mL auto-injector Inject 0.3 mL intramuscularly as needed. For allergic reaction.Seek emergent medical care immediately after use.Disp:1 2-packw/instructor trainer canine service cholecalciferol, vitamin D3, (VITAMIN D3 ORAL) Take by mouth. albuterol HFA (VENTOLIN HFA) 90 mcg/actuation inhaler Inhale 2 Puffs as instructed every 4 hours as needed. mv-min/iron/folic/calcium/vitK (WOMEN'S MULTIVITAMIN ORAL) No current facility-administered medications on file prior to visit. ALLERGIES: Beta Blockers [Beta-Blockers (Beta-Adrenergic Blocking Agts)], Latex, Nickel, Lexapro [Escitalopram Oxalate], Propranolol, Seasonal Allergies, and Vistaril [Hydroxyzine Hcl] Blood Type: NA ASSESSMENT: 32 year old female Attempting to conceive 05/2021 Menstrual cycle irregularity: 28 day interval OPK+ PMHx: Migraine with aura (OCP related) PSHx: Septoplasty. Eustachion tubes. Tooth extraction OBHx: Denies Meds: MVI. Seasonal allergy Desire for future fertility 39 year old male partner without proven fertility PMHx: Denies PSHx: Hernia repair Meds: Denies SA: 99/78%/4% PLAN: Initial evaluation: Hormone values: Normal HSG Pelvic US SA: Normal Follow-up visit: In-person office visit or virtual visit to review and discuss initial work-up results to determine treatment plan I spent a total of 24 minutes on the date of the service which included preparing to see the patient, tzec-[id number] patient care, completing clinical documentation, obtaining and/or reviewing separately obtained history, counseling and educating the patient/family/caregiver, ordering medications, tests, or procedures, independently interpreting results (not separately reported), and communicating results to the patient/family/caregiver. (more content not included)... [facility] 04-08-2022 Note HNO ID: [id number] Author: Mina Varela MD Service: ? Author Type: Physician Type: Procedures Filed: 04/08/2022 1:56 PM Note Text: [facility] HYSTEROSALPINGOGRAM NOTE Date: April 08, 2022 Uzma Gallego was seen in Radiology for a Hysterosalpingogram for fertility testing. The procedure including risks, benefits and options was discussed with the patient. There are no contraindications to the procedure. Uzma Gallego expressed understanding and agreed to proceed. UNIVERSAL PROTOCOL / SAFETY CHECKLIST UNIVERSAL PROTOCOL / SAFETY CHECKLIST Procedure to be Performed: HSG Sign In: A Moment of CARE was completed. Personnel directly involved with the procedure wore the appropriate PPE (Personal Protective Equipment). No special equipment needed. Patient/Surrogate Stated/Verified: PATIENT VERIFIED(optional for EMERGENT procedures): Patient name, Date of , Relevant allergies, and The intended procedure Time Out Communication: Intended patient and procedure match the source documents. Consent documented and matches the intended procedure. Relevant labs, photos, and/or imaging studies have been reviewed. No correct side/site applicable for marking and visibility. No medications required for procedure. Fire risk assessed and interventions discussed. No implant(s) inserted. Sign Out: SIGN OUT (optional for EMERGENT procedures): No specimen collected. All instruments, equipment, possible retained foreign bodies accounted for. Post-procedure follow-up management communicated and Plan of Care Visit completed when applicable. Mina Varela MD Procedure: The cervix is visualized, prepped with betadine. The canula was inserted into the cervix and contrrast injected into the cavity. Using Fluroscopy the uterine cavity is normal and the fallopian tubes are patent bilaterally without evidence of loculation. Mina Varela MD [facility] 04-08-2022 Note HNO ID: [id number] Author: RT Brown (R) Service: Radiology Author Type: Technologist Type: Progress Notes Filed: 04/08/2022 12:17 PM Note Text: Radiology Service Progress Note PATIENT NAME: Uzma Gallego DATE OF SERVICE: April 08, 2022 TIME: 12:16 PM PATIENT IDENTITY VERIFICATION COMPLETED USING TWO (2) IDENTIFIERS: Name and Date of confirmed by patient verbally. FALL SCREENING: Has the patient had 2 falls in the last year or 1 fall with injury or currently using an Ambulatory Assistive Device (Walker, Cane, Wheelchair, Crutches, etc.)? No PATIENT GENDER DATA: Female. status: : No status: NO. PATIENT RELEVANT IMPLANT DATA REVIEWED: Not Applicable RADIOLOGY DEPARTMENT: General X-ray: Exam(s) Completed: HSG PERIPHERAL IV DATA: Not applicable SIGNED BY: IRISH Brown) April 08, 2022 12:16 PM [facility] 04-08-2022 Procedure note [facility] HYSTEROSALPINGOGRAM NOTE Date: April 08, 2022 Uzma Gallego was seen in Radiology for a Hysterosalpingogram for fertility testing. The procedure including risks, benefits and options was discussed with the patient. There are no contraindications to the procedure. Uzma Gallego expressed understanding and agreed to proceed. UNIVERSAL PROTOCOL / SAFETY CHECKLIST UNIVERSAL PROTOCOL / SAFETY CHECKLIST Procedure to be Performed: HSG Sign In: A Moment of CARE was completed. Personnel directly involved with the procedure wore the appropriate PPE (Personal Protective Equipment). No special equipment needed. Patient/Surrogate Stated/Verified: PATIENT VERIFIED(optional for EMERGENT procedures): Patient name, Date of , Relevant allergies, and The intended procedure Time Out Communication: Intended patient and procedure match the source documents. Consent documented and matches the intended procedure. Relevant labs, photos, and/or imaging studies have been reviewed. No correct side/site applicable for marking and visibility. No medications required for procedure. Fire risk assessed and interventions discussed. No implant(s) inserted. Sign Out: SIGN OUT (optional for EMERGENT procedures): No specimen collected. All instruments, equipment, possible retained foreign bodies accounted for. Post-procedure follow-up management communicated and Plan of Care Visit completed when applicable. Mina Varela MD Procedure: The cervix is visualized, prepped with betadine. The canula was inserted into the cervix and contrrast injected into the cavity. Using Fluroscopy the uterine cavity is normal and the fallopian tubes are patent bilaterally without evidence of loculation. Mina Varela MD documented in this encounter [facility] 04-08-2022 History of Present illness Narrative Radiology Service Progress Note PATIENT NAME: Uzma Gallego DATE OF SERVICE: April 08, 2022 TIME: 12:16 PM PATIENT IDENTITY VERIFICATION COMPLETED USING TWO (2) IDENTIFIERS: Name and Date of confirmed by patient verbally. FALL SCREENING: Has the patient had 2 falls in the last year or 1 fall with injury or currently using an Ambulatory Assistive Device (Walker, Cane, Wheelchair, Crutches, etc.)? No PATIENT GENDER DATA: Female. status: : No status: NO. PATIENT RELEVANT IMPLANT DATA REVIEWED: Not Applicable RADIOLOGY DEPARTMENT: General X-ray: Exam(s) Completed: HSG PERIPHERAL IV DATA: Not applicable SIGNED BY: RT Stephanie(R) April 08, 2022 12:16 PM documented in this encounter [facility] 01-20-2022 Note HNO ID: [id number] Author: Jeni Craft OD Service: ? Author Type: CHIEF EXECUTIVE Type: Progress Notes Filed: 01/20/2022 8:43 AM Note Text: 1. 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 Author Type: Physician Type: Progress Notes Filed: 01/05/2022 10:17 AM Note Text: Uzma is a 31 year old who presents for an annual gynecologic exam without complaints. 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 Starts new job in [employer] soon. Menses: cycles every 28-30 days and 5 days of flow. Contraception: none HPV vaccine: Yes Last Pap: 07/20/2019 normal HPV: 07/20/2019 negative History of abnormal pap: No Last mammogram: never OB History T0 L0 SAB0 IAB0 Ectopic0 Multiple0 Live Births0 [employer] History LMP: 12/16/2021, Having periods Age at Menarche: Age at First : Age at Menopause: [employer] History Comments: Sexual Activity: Yes; Male; none Contraception: No contraception data on record PAST MEDICAL HISTORY Diagnosis Date - Anxiety with depression seasonal - Deviated septum - Eustachian tube dysfunction - Migraine with aura - Patent foramen ovale 01/2018 - Seasonal allergies Dr. Reyes for allergy shots - Tonsil stone PAST SURGICAL HISTORY Procedure Laterality Date - PAST SURGICAL HISTORY OF Bilateral surgical correction of tear duct blockage - PAST SURGICAL HISTORY OF wisdom teeth extraction - SEPTOPLASTY 01/09/2019 septoplasty for deviated septum FAMILY HISTORY Problem Relation Age of Onset - Skin Cancer Mother - Skin Cancer Maternal Grandmother - other (dementia) Maternal Grandmother - Heart Maternal Grandfather - other (atrial fibrillation) Maternal Grandfather - Asthma Father - other (pvd) Father SOCIAL HISTORY Social History Tobacco Use - Smoking status: Never Smoker - Smokeless tobacco: Never Used Vaping Use - Vaping Use: Never used Substance Use Topics - Alcohol use: Yes Comment: 2 times per month - Drug use: No REVIEW OF SYSTEMS Abdomen: No abdominal pain, nausea, vomiting, diarrhea, or constipation. No bloating, early satiety, indigestion, or increased flatulence. Bladder: No dysuria, gross hematuria, urinary frequency, urinary urgency, or incontinence. Breast: No breast lumps, nipple d/c, overlying skin changes, redness or skin retraction. Allergies and current medication updated:Yes EXAM: BP 92/56 Ht 5' 3" (1.60m) Wt 117 lb 9.6 oz (53.3kg) LMP 12/16/2021 BMI 20.84 kg/(m2). GENERAL: pleasant, female in no apparent distress BREAST: soft, non-tender, symmetric, no dominant mass, normal nipple-areolar complex, no lymphadenopathy and no nipple discharge CHEST: Normal inspiratory effort ABDOMEN: soft, non-tender and no masses PELVIC: external genitalia normal, normal Bartholin's glands, urethra, Sumrall's glands, no vulvar lesions, no cervical lesions, good vaginal support, physiologic discharge present, normal appearing perineal body and perianal region BIMANUAL: uterus normal size, shape and consistency, no adnexal masses and non-tender RECTOVAGINAL: deferred. NEURO: alert and oriented x3,exam grossly non-focal EXTREMITIES: normal ASSESSMENT/PLAN: 1) Health maintenance: Pap/HPV up to date. Mammogram starting age 40. Nutrition, exercise and routine health maintenance exams reviewed. 2) Contraception: none. Advised on preconception folic acid. 3) Follow up one year or sooner as needed Braulio Borden MD [facility] 01-05-2022 History of Present illness Narrative Uzma is a 31 year old who presents for an annual gynecologic exam without complaints. 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 Starts new job in [employer] soon. Menses: cycles every 28-30 days and 5 days of flow. Contraception: none HPV vaccine: Yes Last Pap: 07/20/2019 normal HPV: 07/20/2019 negative History of abnormal pap: No Last mammogram: never OB History T0 L0 SAB0 IAB0 Ectopic0 Multiple0 Live Births0 [employer] History LMP: 12/16/2021, Having periods Age at Menarche: Age at First : Age at Menopause: [employer] History Comments: Sexual Activity: Yes; Male; none Contraception: No contraception data on record PAST MEDICAL HISTORY Diagnosis Date Anxiety with depression seasonal Deviated septum Eustachian tube dysfunction Migraine with aura Patent foramen ovale 01/[address] Reyes for allergy shots Tonsil stone PAST SURGICAL HISTORY Procedure Laterality Date PAST SURGICAL HISTORY OF Bilateral surgical correction of tear duct blockage PAST SURGICAL HISTORY OF wisdom teeth extraction SEPTOPLASTY 01/09/2019 septoplasty for deviated septum FAMILY HISTORY Problem Relation Age of Onset Skin Cancer Mother Skin Cancer Maternal Grandmother other (dementia) Maternal Grandmother Heart Maternal Grandfather other (atrial fibrillation) Maternal Grandfather Asthma Father other (pvd) Father SOCIAL HISTORY Social History Tobacco Use Smoking status: Never Smoker Smokeless tobacco: Never Used Vaping Use Vaping Use: Never used Substance Use Topics Alcohol use: Yes Comment: 2 times per month Drug use: No REVIEW OF SYSTEMS Abdomen: No abdominal pain, nausea, vomiting, diarrhea, or constipation. No bloating, early satiety, indigestion, or increased flatulence. Bladder: No dysuria, gross hematuria, urinary frequency, urinary urgency, or incontinence. Breast: No breast lumps, nipple d/c, overlying skin changes, redness or skin retraction. Allergies and current medication updated:Yes EXAM: BP 92/56 Ht 5' 3" (1.60m) Wt 117 lb 9.6 oz (53.3kg) LMP 12/16/2021 BMI 20.84 kg/(m^2). GENERAL: pleasant, female in no apparent distress BREAST: soft, non-tender, symmetric, no dominant mass, normal nipple-areolar complex, no lymphadenopathy and no nipple discharge CHEST: Normal inspiratory effort ABDOMEN: soft, non-tender and no masses PELVIC: external genitalia normal, normal Bartholin's glands, urethra, Sumrall's glands, no vulvar lesions, no cervical lesions, good vaginal support, physiologic discharge present, normal appearing perineal body and perianal region BIMANUAL: uterus normal size, shape and consistency, no adnexal masses and non-tender RECTOVAGINAL: deferred. NEURO: alert and oriented x3,exam grossly non-focal EXTREMITIES: normal ASSESSMENT/PLAN: 1) Health maintenance: Pap/HPV up to date. Mammogram starting age 40. Nutrition, exercise and routine health maintenance exams reviewed. 2) Contraception: none. Advised on preconception folic acid. 3) Follow up one year or sooner as needed Braulio Borden MD documented in this encounter [facility] 12-17-2021 Note HNO ID: [id number] Author: Jennifer Kearney APRN.MARCELLAM Service: ? Author Type: Enterostomal Therapy Nurse Type: Progress Notes Filed: 01/02/2022 3:42 PM Note Text: Uzma Gallego is a 31 year old female who presents for problem visit follow up infertility. HPI: LMP 04/30/21, regular menses. Started attempting May 2021 . Cycles 26-28 days, last 5-6 days. Taking PNV, baby and Me. 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 8 cycles has been attempting , using OPK, timing intercourse, and no . OPK shows ovulation cycle day 15-16 with LH surge. Starts having intercourse 1 week before ovulation every other day, on day of ovulation and day after. with no medical conditions, 39 years old. Patient or have never had any infertility work up. Denies any history of STD, PID, or uterine surgeries. OB History T0 L0 SAB0 IAB0 Ectopic0 Multiple0 Live Births0 [employer] History LMP: 12/16/2021, Having periods Age at Menarche: Age at First : Age at Menopause: [employer] History Comments: Sexual Activity: Yes; Male Contraception: No contraception data on record PAST MEDICAL HISTORY Diagnosis Date - Anxiety with depression seasonal - Deviated septum - Eustachian tube dysfunction - Migraine with aura - Patent foramen ovale 01/2018 - Seasonal allergies Dr. Reyes for allergy shots - Tonsil stone PAST SURGICAL HISTORY Procedure Laterality Date - PAST SURGICAL HISTORY OF Bilateral surgical correction of tear duct blockage - PAST SURGICAL HISTORY OF wisdom teeth extraction - SEPTOPLASTY 01/09/2019 septoplasty for deviated septum FAMILY HISTORY Problem Relation Age of Onset - Skin Cancer Mother - Skin Cancer Maternal Grandmother - other (dementia) Maternal Grandmother - Heart Maternal Grandfather - other (atrial fibrillation) Maternal Grandfather - Asthma Father - other (pvd) Father Social History Tobacco Use - Smoking status: Never Smoker - Smokeless tobacco: Never Used Vaping Use - Vaping Use: Never used Substance Use Topics - Alcohol use: Yes Comment: 2 times per month - Drug use: No Current Outpatient Medications Medication Sig - azelastine (ASTELIN) 0.1% nasal spray Use 2 Sprays in each nostril twice daily as needed. - EPINEPHrine (AUVI-Q) 0.3 mg/0.3 mL auto-injector Inject 0.3 mL intramuscularly as needed. For allergic reaction.Seek emergent medical care immediately after use.Disp:1 2-packw/instructor trainer canine service - cholecalciferol, vitamin D3, (VITAMIN D3 ORAL) Take by mouth. - albuterol HFA (VENTOLIN HFA) 90 mcg/actuation inhaler Inhale 2 Puffs as instructed every 4 hours as needed. - mv-min/iron/folic/calcium/vitK (WOMEN'S MULTIVITAMIN ORAL) - loratadine (CLARITIN) 10 mg tablet Take 1 tablet by mouth once daily. (Patient not taking: Reported on 12/17/2021 ) No current facility-administered medications for this visit. Allergies As of Date: 12/17/2021 Allergen Noted Reaction BETA BLOCKERS [BETA-BLOCKERS (BET*09/20/2019 Contraindication-Medical Surgical LATEX 01/28/2018 Rash NICKEL 05/11/2018 Rash LEXAPRO [ESCITALOPRAM OXALATE] 02/26/2020 Other: See Comments PROPRANOLOL 06/03/2018 Other: See Comments SEASONAL ALLERGIES 09/20/2019 Unknown VISTARIL [HYDROXYZINE HCL] 02/26/2020 Other: See Comments Fully Assessed 12/17/2021 REVIEW OF SYSTEMS Abdomen: No bloating, early satiety, indigestion, or increased flatulence. No abdominal pain, nausea, vomiting, diarrhea, or constipation. Bladder: No dysuria, gross hematuria, urinary frequency, urinary urgency, or incontinence. Breast: No breast lumps, nipple d/c, overlying skin changes, redness or skin retraction. Expanded ROS: N/A Allergies and current medication updated:Yes EXAM: BP 110/70 Wt 118 lb (53.5kg) LMP 12/16/2021 GENERAL: pleasant, female in no apparent distress NEURO: alert and oriented x3,exam grossly non-focal EXTREMITIES: normal ASSESSMENT AND PLAN: 1. Female infertility - ICD9: 628.9, ICD10: N97.9 - PROGESTERONE BLD - FSH BLD - ESTRADIOL-17B BLD - TSH BLD -Reviewed will get labs and discuss medication to induce ovulation if indicated. Jennifer Kearney APRN.CNM [facility] 12-17-2021 Instructions Jennifer Kearney APRN.CNM - 12/17/2021 11:04 AM EDT Urology for semenalysis-[facility] Contact US [phone] Blood work FSH, estradiol, TSH on cycle day 3 Progesterone level on cycle day 21 Luteal Phase Progesterone This simple blood test is done to confirm whether or not you are ovulating. In order to time this blood test accurately, you will need to use a home ovulation predictor kit.This test needs to be done 6-8 days after your surge. Alternatively, this can be done on day 21 of your cycle. documented in this encounter [facility] 12-17-2021 History of Present illness Narrative Uzma Gallego is a 31 year old female who presents for problem visit follow up infertility. HPI: LMP 04/30/21, regular menses. Started attempting May 2021 . Cycles 26-28 days, last 5-6 days. Taking PNV, baby and Me. 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 8 cycles has been attempting , using OPK, timing intercourse, and no . OPK shows ovulation cycle day 15-16 with LH surge. Starts having intercourse 1 week before ovulation every other day, on day of ovulation and day after. with no medical conditions, 39 years old. Patient or have never had any infertility work up. Denies any history of STD, PID, or uterine surgeries. OB History T0 L0 SAB0 IAB0 Ectopic0 Multiple0 Live Births0 [employer] History LMP: 12/16/2021, Having periods Age at Menarche: Age at First : Age at Menopause: [employer] History Comments: Sexual Activity: Yes; Male Contraception: No contraception data on record PAST MEDICAL HISTORY Diagnosis Date Anxiety with depression seasonal Deviated septum Eustachian tube dysfunction Migraine with aura Patent foramen ovale 01/[address] Reyes for allergy shots Tonsil stone PAST SURGICAL HISTORY Procedure Laterality Date PAST SURGICAL HISTORY OF Bilateral surgical correction of tear duct blockage PAST SURGICAL HISTORY OF wisdom teeth extraction SEPTOPLASTY 01/09/2019 septoplasty for deviated septum FAMILY HISTORY Problem Relation Age of Onset Skin Cancer Mother Skin Cancer Maternal Grandmother other (dementia) Maternal Grandmother Heart Maternal Grandfather other (atrial fibrillation) Maternal Grandfather Asthma Father other (pvd) Father Social History Tobacco Use Smoking status: Never Smoker Smokeless tobacco: Never Used Vaping Use Vaping Use: Never used Substance Use Topics Alcohol use: Yes Comment: 2 times per month Drug use: No Current Outpatient Medications Medication Sig azelastine (ASTELIN) 0.1% nasal spray Use 2 Sprays in each nostril twice daily as needed. EPINEPHrine (AUVI-Q) 0.3 mg/0.3 mL auto-injector Inject 0.3 mL intramuscularly as needed. For allergic reaction.Seek emergent medical care immediately after use.Disp:1 2-packw/instructor trainer canine service cholecalciferol, vitamin D3, (VITAMIN D3 ORAL) Take by mouth. albuterol HFA (VENTOLIN HFA) 90 mcg/actuation inhaler Inhale 2 Puffs as instructed every 4 hours as needed. mv-min/iron/folic/calcium/vitK (WOMEN'S MULTIVITAMIN ORAL) loratadine (CLARITIN) 10 mg tablet Take 1 tablet by mouth once daily. (Patient not taking: Reported on 12/17/2021 ) No current facility-administered medications for this visit. Allergies As of Date: 12/17/2021 Allergen Noted Reaction BETA BLOCKERS [BETA-BLOCKERS (BET*09/20/2019 Contraindication-Medical Surgical LATEX 01/28/2018 Rash NICKEL 05/11/2018 Rash LEXAPRO [ESCITALOPRAM OXALATE] 02/26/2020 Other: See Comments PROPRANOLOL 06/03/2018 Other: See Comments SEASONAL ALLERGIES 09/20/2019 Unknown VISTARIL [HYDROXYZINE HCL] 02/26/2020 Other: See Comments Fully Assessed 12/17/2021 REVIEW OF SYSTEMS Abdomen: No bloating, early satiety, indigestion, or increased flatulence. No abdominal pain, nausea, vomiting, diarrhea, or constipation. Bladder: No dysuria, gross hematuria, urinary frequency, urinary urgency, or incontinence. Breast: No breast lumps, nipple d/c, overlying skin changes, redness or skin retraction. Expanded ROS: N/A Allergies and current medication updated:Yes EXAM: BP 110/70 Wt 118 lb (53.5kg) LMP 12/16/2021 GENERAL: pleasant, female in no apparent distress NEURO: alert and oriented x3,exam grossly non-focal EXTREMITIES: normal ASSESSMENT AND PLAN: 1. Female infertility - ICD9: 628.9, ICD10: N97.9 - PROGESTERONE BLD - FSH BLD - ESTRADIOL-17B BLD - TSH BLD -Reviewed will get labs and discuss medication to induce ovulation if indicated. Jennifer Kearney APRN.CNM documented in this encounter [facility] Evaluation note Diagnosis Female infertility- Primary Female infertility of unspecified origin [facility] Diagnosis Encounter for gynecological examination without abnormal finding- Primary Routine gynecological examination [facility] Diagnosis Regular astigmatism of both eyes- Primary Regular astigmatism [facility] Diagnosis Fallopian insufflation for fertility testing Fertility testing documented in this encounter [facility] note* Diagnosis examination or test, unconfirmed- Primary documented in this encounter [facility] note* Diagnosis Infertility, female- Primary Female infertility of unspecified origin Encounter for fertility planning Other specified procreative management Encounter for procreative management Unspecified procreative management documented in this encounter [facility] note* Diagnosis Fertility testing- Primary documented in this encounter [facility] noteNo assessment information availableWLake [facility] Work Phone: evaluation note* Diagnosis Onset Date Resolution Status COVID-19 acute Infertility acute Women's annual routine gynecological examination acute [facility] Work Phone: evaluation note* Diagnosis Onset Date Resolution Status Urinary tract infection none active [facility] Work Phone: evaluation note* Diagnosis Onset Date Resolution Status Admit Date Constipation acute March 21, 2025 12:57pm Diarrhea acute March 21 12:57pm [facility] Work Phone: Reason for referral (narrative)No reason for referral information availableWLake County [facility] Work Phone: Summary Purpose Family History Relationship Condition Age at Onset Recorded Date/T little father Asthma Unknown Hypertension Unknown Peripheral arterial disease Unknown brother Asthma Unknown grandmother Dementia Unknown Disorder of thyroid Unknown grandfather Dementia Unknown grandfather Cardiac disease Unknown father Cardiac disease Unknown aunt Disorder of thyroid Unknown Advance Directives Documents on File Type Date Recorded 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 Advance Directive(s) 12/20/2018 5:23 PM Advance Directive(s) 11/26/2016 11:06 AM Documents on File Type Date Recorded 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 Advance Directive(s) 11/26/2016 11:06 AM Documents on File Type Date Recorded 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 Advance Directive(s) 11/26/2016 11:06 AM Advance Directive Response Recorded Date/ Time Living Will No July 08 1:11pm Power of Grain Oilseed Or Pasture Farm Manager No July 08, 2023 1:11pm Advance Directive Response Recorded Date/ Time Living Will No July 08 2:11pm Power of Grain Oilseed Or Pasture Farm Manager No July 08, 2023 2:11pm Health Concerns Infection Onset Date Last Indicated Resolved Time COVID-19 Rule-Out 07/10/2022 07/10/2022 07/10/2022 9:14 PM EST COVID-19 Confirmed 07/10/2022 07/10/2022 Infection Onset Date Last Indicated Resolved Time COVID-19 Confirmed 07/10/2022 07/10/2022 Chief Complaint and Reason for Visit Chief Complaint INT LAB L SIDED NODULE AND HX OF INFERTILITY INT LABS Chief Complaint INT LAB L SIDED NODULE AND HX OF INFERTILITY INT LABS INT LABS Chief Complaint INT LABS [facility] EMPLOY/COVID TEST SORE THROAT/POST NASAL DRIP/FEVER/BA E ORDERS 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) , 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 PAP EXPOSURE Reason for Visit COVID-19 Infertility Women's annual routine gynecological examination Chief Complaint EMPLOYEE LABS E ORDERS Chief Complaint EMPLOYEE LABS E ORDERS Urinary tract infection Reason for Visit Urinary tract infect ion Chief Complaint Admit Date NEEDS ORDER December 27, 2024 10:06 am Chief Complaint Admit Date NEEDS ORDER December 27, 2024 10:06 am Acid Reflix/Diarrhea March 21, 2025 1 2:57pm Reason for Visit Admit Date Constipation March 21, 2025 12 :57pm Diarrhea March 21, 2025 12 :57pm Additional Source Comments INFORMATION SOURCE (unrecogn ized section and content) DATE CREATED AUTHOR 01/26/2018 [facility] DATE CREATED AUTHOR AUTHOR'S ORGANIZ ATION 01/28/2018 [facility] DATE CREATED AUTHOR AUTHOR'S ORGANIZ ATION 01/09/2019 [facility] DATE CREATED AUTHOR AUTHOR'S ORGANIZ ATION 07/11/2022 [facility] DATE CREATED AUTHOR AUTHOR'S ORGANIZ ATION 08/15/2022 [facility] DATE CREATED AUTHOR AUTHOR'S ORGANIZ ATION 03/18/2025 [facility] Source Comments (unrecognize d section and content) In the event this informatio n is protected by the Federal Confidentiality of Alcohol and Drug Abuse Patient Records regulations: The Federal rules restrict any use of the information to criminally investigate or prosecute any alcohol or drug abuse patient.[facility] the event this information is protected by the Federal Confidentiality of Alcohol and Drug Abuse Patient Records regulations: The Federal rules restrict any use of the information to criminally investigate or prosecute any alcohol or drug abuse patient.[facility] the event this information is protected by the Federal Confidentiality of Alcohol and Drug Abuse Patient Records regulations: The Federal rules restrict any use of the information to criminally investigate or prosecute any alcohol or drug abuse patient.[facility] the event this information is protected by the Federal Confidentiality of Alcohol and Drug Abuse Patient Records regulations: The Federal rules restrict any use of the information to criminally investigate or prosecute any alcohol or drug abuse patient.[facility] the event this information is protected by the Federal Confidentiality of Alcohol and Drug Abuse Patient Records regulations: The Federal rules restrict any use of the information to criminally investigate or prosecute any alcohol or drug abuse patient.[facility] the event this information is protected by the Federal Confidentiality of Alcohol and Drug Abuse Patient Records regulations: The Federal rules restrict any use of the information to criminally investigate or prosecute any alcohol or drug abuse patient.[facility] the event this information is protected by the Federal Confidentiality of Alcohol and Drug Abuse Patient Records regulations: The Federal rules restrict any use of the information to criminally investigate or prosecute any alcohol or drug abuse patient.[facility] the event this information is protected by the Federal Confidentiality of Alcohol and Drug Abuse Patient Records regulations: The Federal rules restrict any use of the information to criminally investigate or prosecute any alcohol or drug abuse patient.[facility] the event this information is protected by the Federal Confidentiality of Alcohol and Drug Abuse Patient Records regulations: The Federal rules restrict any use of the information to criminally investigate or prosecute any alcohol or drug abuse patient.[facility] the event this information is protected by the Federal Confidentiality of Alcohol and Drug Abuse Patient Records regulations: The Federal rules restrict any use of the information to criminally investigate or prosecute any alcohol or drug abuse patient.[facility] HospitalIn the event this information is protected by the Federal Confidentiality of Alcohol and Drug Abuse Patient Records regulations: The Federal rules restrict any use of the information to criminally investigate or prosecute any alcohol or drug abuse patient.[facility] HospitalIn the event this information is protected by the Federal Confidentiality of Alcohol and Drug Abuse Patient Records regulations: The Federal rules restrict any use of the information to criminally investigate or prosecute any alcohol or drug abuse patient.[facility] the event this information is protected by the Federal Confidentiality of Alcohol and Drug Abuse Patient Records regulations: The Federal rules restrict any use of the information to criminally investigate or prosecute any alcohol or drug abuse patient.[facility] the event this information is protected by the Federal Confidentiality of Alcohol and Drug Abuse Patient Records regulations: The Federal rules restrict any use of the information to criminally investigate or prosecute any alcohol or drug abuse patient.[facility] Reason for Visit (unrecogniz ed section and content) Reason Comments Follow Up Reason Onset Date Comments Yearly Exam 01/05/2022 Reason Comments Decreased Vision Both Eyes 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 Specialty Diagnoses / Procedures Referred By Contac t Referred To Contact RE[facility]ODUCTIVE ENDOCRINOLOGY & FERTILITY Diagnoses Encounter for fertility testing HSG Procedures CATH & SALINE/CONTRAST SONOHYSTER/HYSTEROSALP I HYSTEROSALPINGOGRAPHY RS&I Mina Varela MD [address] [place] [address] i [facility] [address] [address] [place] [address] Referral ID Status Reason Start Date Expiration Date V isits Requested Visits Authorized [id number] Authorized 04/01/2022 05/31/2022 3 3 Reason Onset Date Comments [facility] COVID Outreach 07/10/2022 Reason Comments Treatment Planning Specialty Diagnoses / Procedures Referred By Contac t Referred To Contact REPRODUCTIVE ENDOCRINOLOGY & FERTILITY Diagnoses Encounter for fertility testing Fallopian insufflation for fertility testing Procedures OFFICE/OUTPATIENT ESTABLISHED LOW MDM 20-29 MIN Mina Varela MD [address] [place] [address] Dusty Loja [address] [place] [address] Referral ID Status Reason Start Date Expiration Date Visits Requested Visits Authorized [id number] Authorized Benefit Check 04/27/2022 07/26/2022 4 4 Reason Comments [facility] COVID Outreach Reason Comments Infertility Specialty Diagnoses / Procedures Referred By Contac t Referred To Contact REPRODUCTIVE ENDOCRINOLOGY & FERTILITY Diagnoses IVF package Procedures IVF package Mina Varela MD [address] [place] [address] [facility] [place] [address] [place] [address] Referral ID Status Reason Start Date Expiration Date Visits Requested Visits Authorized [id number] Authorized Financial Clearance Required - Self Pay Do Not Bill Insurance - SP patient Patient Cleared - True Self-Pay required payment collected Financial Clearance Not Required 09/13/2022 99 99 Care Teams (unrecognized sec tion and content) Team Status: Active Member Role Status Dates Katie No , DO Primary Care Provider Active Team Status: Inactive Member Role Status Dates Katie No , DO Primary Care Provider, Referring Provider Active Duane PEACOCK PA Attending Provider Active Team Status: Active Member Role Status Dates Katie No , DO Primary Care Provider Active Health Risk Assessment Attending Provider, Referring P fawad Active Team Status: Inactive Member Role Status Dates Katie No , DO Primary Care Provi maddi, Attending Provider, Referring Provider Active Team Status: Inactive Member Role Status Dates Katie No , DO Primary Care Provider Active Duane PEACOCK PA Attending Provider Active Bracelet Form Coverer Relationship Specialty Start Date End Date Maxime Ivey MD [address] [place], [place] [id number] PCP - General Family Practice 05/21/17 Max Glaser MD Primary Staff Physician Cardiology 10/18/18 Bracelet Form Coverer Relationship Specialty Start Date End Date Maxime Ivey MD [address] [place] [address] PCP - General Family Practice 05/21/17 Max Glaser MD Primary Staff Physician Cardiology 10/18/18 Bracelet Form Coverer Relationship Specialty Start Date End Date Maxime Ivey MD [address] [place] [address] PCP - General Family Practice 05/21/17 Max Glaser MD Primary Staff Physician Cardiology 10/18/18 Bracelet Form Coverer Relationship Specialty Start Date End Date Maxime Ivey MD [address] [place] [place] [address] PCP - General Family Practice 05/21/17 Max Glaser MD Primary Staff Physician Cardiology 10/18/18 Bracelet Form Coverer Relationship Specialty Start Date End Date Maxime Ivey MD [address] [place] [address] PCP - General Family Practice 05/21/17 Max Glaser MD Primary Staff Physician Cardiology 10/18/18 Bracelet Form Coverer Relationship Specialty Start Date End Date Maxime Ivey MD [address] [place] [address] PCP - General Family Practice 05/21/17 Max Glaser MD Primary Staff Physician Cardiology 10/18/18 Bracelet Form Coverer Relationship Specialty Start Date End Date Maxime Ivey MD [address] [place] [address] PCP - General Family Practice 05/21/17 Max Glaser MD Primary Staff Physician Cardiology 10/18/18 Bracelet Form Coverer Relationship Specialty Start Date End Date Maxime Ivey MD [address] [place] [address] PCP - General Family Practice 05/21/17 Max Glaser MD Primary Staff Physician Cardiology 10/18/18 Bracelet Form Coverer Relationship Specialty Start Date End Date Maxime Ivey MD [address] [place] [address] PCP - General Family Medicine 05/21/17 Max Glaser MD [address] [place] [address] Primary Staff Physician Cardiology 10/18/18 Bracelet Form Coverer Relationship Specialty Start Date End Date Maxime Ivey MD [address] [place] [address] PCP - General Family Medicine 05/21/17 Max Glaser MD [address] [place] [address] Primary Staff Physician Cardiology 10/18/18 Bracelet Form Coverer Relationship Specialty Start Date End Date Maxime Ivey MD [address] [place] [address] PCP - General Family Medicine 05/21/17 Max Glaser MD [address] [place] [address] Primary Staff Physician Cardiology 10/18/18 Team Status: Inactive Member Role Status Dates Mag Avila CNM Attending Provider Active Katie No DO Primary Care Provider, Referring Provider Active Team Status: Inactive Member Role Status Dates Katie M Marybel , DO Primary Care Provider, Referring Provider Active Calos PEACOCK PA Attending Provider Active Team Status: Inactive Member Role Status Dates Katie No , Primary Care Provider Active Mag Avila CNM Attending Provider, Referring Pr ovider Active Team Status: Inactive Member Role Status Dates Katie No , Primary Care Provider Active Dr. Leonard Keller , DO Emergency Provider Active Team Status: Active Member Role Status Louie Altamirano MD Primary Care Provider Active Team Status: Inactive Member Role Status Louie Altamirano MD Primary Care Provider Active St art: December 27, 2024 End: December 27, 2024 Umu Altamirano MD Attending Provider Active Start : December 27, 2024 End: December 27, 2024 Umu Altamirano MD Referring Provider Active Start : December 27, 2024 End: December 27, 2024 Team Status: Active Member Role/Relationship Status Louie Altamirano MD Primary Care Provider Active Team Status: Inactive Member Role/Relationship Status Louie Altamirano MD Primary Care Provider Active St art: December 27, 2024 End: December 27, 2024 Umu Altamirano MD Attending Provider Active Start : December 27, 2024 End: December 27, 2024 Umu Altamirano MD Referring Provider Active Start : December 27, 2024 End: December 27, 2024 Team Status: Inactive Member Role/Relationship Status Louie Altamirano MD Primary Care Provider Active St art: March 21, 2025 End: March 21, 2025 Umu Altamirano MD Referring Provider Active Start : March 21, 2025 End: March 21, 2025 MADONNA Atkins Attending Provider Active Start: March 21, 2025 End: March 21, 2025 Goals (unrecognized section and content) Goals may be documented in a n alternate sectionGoals may be documented in an alternate sectionGoals may be documented in an alternate sectionGoals may be documented in an alternate sectionGoals may be documented in an alternate sectionGoals may be documented in an alternate sectionGoals may be documented in an alternate section FOR RECORDS PERTAINING TO PATIENTS WHO ARE OR HAVE BEEN ENROLLED IN A CHEMICAL DEPENDENCY/SUBSTANCEABUSE PROGRAM, SOME INFORMATION MAY BE OMITTED. This clinical summary was aggregated from multiple sources. Caution should be exercised in using it in the provision of clinical care. This summary normalizes information from multiple sources, and as a consequence, information in this document may materially change the coding, format and clinical context of patient data. In addition, data may be omitted in some cases. CLINICAL DECISIONS SHOULD BE BASED ON THE PRIMARY CLINICAL RECORDS. [facility]. provides no warranty or guarantee of the accuracy or completeness of information in this document.
== END 2025-03-21 23:59 | disposition home or self-care (01) ==
LOC: LAB 13:32
PROVIDERS: PCP Family Medicine; Referring Provider Student in an Organized Health Care Education/Training Program; Visit Provider Student in an Organized Health Care Education/Training Program
DX: R19.7 Diarrhea, unspecified (principal); K59.00 Constipation, unspecified; K21.9 Gastro-esophageal reflux disease without esophagitis
CPT/HCPCS: 36415; 86003

== ENCOUNTER → 2025-03-22 | Outpatient (CLI) | payer OTHER, SELFPAY ==
[2025-03-25 00:07] LABS: Calprotectin, Stool 16 ug/g (0-120)
== END | disposition home or self-care (01) ==
LOC: LABSPEC 12:19
PROVIDERS: PCP Family Medicine; Referring Provider Student in an Organized Health Care Education/Training Program; Visit Provider Student in an Organized Health Care Education/Training Program
DX: K59.00 Constipation, unspecified (principal); K58.0 Irritable bowel syndrome with diarrhea
CPT/HCPCS: 83630; 83993; 87177; 87209; 87329; 87493; 87506

== ENCOUNTER 2025-04-30 09:00 | Day surgery (SDC) | payer OTHER, SELFPAY ==
[2025-04-30] VITALS (9 sets, daily range): BP systolic 92–116; BP diastolic 45–68; PULSE 52–66; RESP 16; TEMP 36.6–36.9; O2SAT 97–100; BMI 21.1
[2025-04-30] MEDS: Lactated Ringers 1,000 ML 15 ML IV (09:36)
--- NOTE | 2025-04-30 09:47 | PRE.ANES_ITS ---
ASA Classification* ASA Classification ASA Classification: 2 Assessment & Plan Anesthesia* Anesthesia Assessment Anesthesia Assessment: Discussed sedation and/or anesthesia options, risks, benefits, and alternatives with patient/parents/legal guardian/POA. Questions invited. The patient/parents/legal guardian/POA seems to understand and agrees to proceed with anesthesia plan. Reviewed the physical assessment, medical history, allergy history and patient home medications list prior to surgery/procedure/anesthetic and documented any changes. Performed airway and anesthesia risk assessments. Anesthesia Type Anesthesia Type: MAC History Source History Obtained from:: Patient and Chart Anesthesia Focused Assessment* Temperature: 98.5 F Pulse Rate: 66 Blood Pressure: 116/68 Respiratory Rate: 16 Pulse Ox: 100 Oxygen Delivery Method: Room Air Airway Assessment Mouth opens: >3 cm Mallampati Score: II Labs Anesthesia Preop lab: CBC WBC, (4.4-11.0) 6.6 K/mm3 12/27/24, 10:15 RBC, (4.2-5.4) 4.41 M/mm3 12/27/24, 10:15 Hgb, (12.0-15.0) 13.0 g/dL 12/27/24, 10:15 Hct, (37-47) 39.1 % 12/27/24, 10:15 Plt Count, (150-450) 215 K/mm3 12/27/24, 10:15 CHEMISTRY Potassium, (3.3-5.1) 3.9 mmol/L 12/27/24, 10:15 Sodium, (133-145) 138 mmol/L 12/27/24, 10:15 Phosphorus, (2.5-4.9) 3.4 mg/dL 11/16/23, 06:50 BUN, (4-19) 10 mg/dL 12/27/24, 10:15 Creatinine, (0.70-1.20) 0.60 mg/dL L 12/27/24, 10:15 Glucose, (70-99) 80 mg/dL 12/27/24, 10:15 TSH, (0.300-4.200) 0.847 uIU/mL 12/27/24, 10:15 COAG Urine Test Pending Today, 09:34 Tst Clinic Negative 12/03/23, 15:23 Pre-Assessment Diagnosis/Proposed Procedure Planned Operative Procedure(s): ERCP Anesthesia History 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 When Was Last Pacemaker Check QUESTION #4 FULL TEXT: You/Your Family Experience fever (hyperthermia) with Anesthesia Last Oral Intake Last Oral intake: Last Oral Intake NPO since 20:00 04/30/25 09:23 Meds taken in AM with sips of No 04/30/25 09:23 water? Meds patient instructed to take am of surgery PONV PONV - plant reliability engineer: PONV - plant reliability engineer Female Yes 04/26/25 11:26 HX of Motion Sickness No 04/26/25 11:26 HX of N/V After Surgery No 04/26/25 11:26 Non-Smoker Yes 04/26/25 11:26 Duration of Surgery greater No 04/26/25 11:26 than 60 minutes Number of Risk Factors 2 04/26/25 11:26 PONV Score Moderate Risk 04/26/25 11:26 Height & Weight Height & Weight: Anesthesia: Height & Weight Height 5 ft 3 in 04/30/25 09:23 Weight: 54.1 kg 04/30/25 09:23 Body Mass Index (BMI) 21.1 04/30/25 09:23 Respiratory Assessment Respiratory Assessment - plant reliability engineer: Respiratory Tract Infection Hx - plant reliability engineer Hx Respiratory Tract Infection No 04/26/25 11:26 STOP Sleep Apnea STOP Sleep Apnea - plant reliability engineer: STOP Sleep Apnea - plant reliability engineer Hx Hypertension No 04/26/25 11:26 Hx Sleep Apnea No 04/26/25 11:26 CPAP BIPAP Do you snore loudly (louder No 04/26/25 11:26 than talking or can be heard Do you often feel tired/ No 04/26/25 11:26 fatigued/ sleepy during daytime? Has anyone observed you stop No 04/26/25 11:26 breathing during sleep? STOP Results Negative 04/26/25 11:26 QUESTION #5 FULL TEXT : Do you snore loudly (louder than talking or can be heard through closed doors)? 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 Specify any problems Hx of Preganancy in last 3 No 04/26/25 11:26 Months Nurse Filling Out Transfusion JZOLLINGE 04/26/25 11:26 & Questions: Date: 04/26/25 04/26/25 11:26 Time: 11:04/26/25 11:26 Patient unable to answer at this time (ie. confused, unrespo /Reproduction History /Reproductive History - plant reliability engineer: /Reproductive Hx- plant reliability engineer Hx Now No 04/26/25 11:26 Gestational Age (in weeks): EDC: Hx Hx Para Hx Section SAB No 04/26/25 11:26 Active Medications Active Medications: Current Medications Generic Name Dose Route Start Last Admin Trade Name Freq PRN Reason Stop Dose Admin Lactated Ringer's 1,000 mls @ 15 mls/hr 04/30/25 09:15 04/30/25 09:36 IV 15 mls/hr .Q48H NOLA Administration PFSH Medical History Heartburn Non-smoker History of echocardiogram History of stress test Rash Thyroid disease Home Medications ?Medication ?Instructions ?Recorded ?Last Taken ?Type multivitamin 1 tab PO DAILY 03/30/23 Unkn own History levothyroxine 37.5 mcg capsule 75 mcg PO DAILY 3 Unknown History calcium 300 mg-D3 25 mcg-magnesium 1 tab PO .QD Unknown History 66 mg-K2 37.5 mcg-herbal tablet (Alive Calcium-Vitamin D3-K2) loratadine 10 mg tablet (Claritin) 10 mg PO QDAY 03/21 Unknown History Allergy/AdvReac Type Severity Reaction Status Date / Time Latex, Natural Rubber Allergy Mild Hives Verified 04/26/25 11:22 nickel Allergy Mild Rash Verified 04/26/25 11:22 povidone-iodine (From Allergy Mild Hives Verified 04/26/25 11:22 Betadine) Seasonal Allergies: Uncoded Allergy Mild Other Verified 04/26/25 11:22 Family History Father Asthma Hypertension PAD (peripheral artery disease) Brother Asthma Grandmother Dementia Thyroid disorder Grandfather Dementia Grandfather Heart disease Father Heart disease Aunt Thyroid disorder Surgical History Hx of rhinoplasty Social History adopted: Yes household members: spouse number of children: 0 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 pets and animals: dog(s) history of recent travel: Yes ([place]) out of state: Yes out of country: No sexually active: Yes Smoking Status: Never smoker alcohol intake: current alcohol intake frequency: a few times a month Alcohol type: hard liquor substance use type: does not use diet: gluten free caffeine: No (stopped 1 month) what type of physical activity do you participate in: walking and weight training seatbelt use: always do you feel safe at home: Yes 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 Physical Exam Const alert, oriented x3 and average body habitus Resp normal respiratory effort and normal air movement Cardio regular rate and regular rhythm Back/Spine normal ROM Neuro oriented x3 and moves all extremities
--- NOTE | 2025-04-30 09:48 | PCM.HP.STD ---
[facility] - General General Date of Admission: 04/30/25 Date of Service: 04/30/25 Chief Complaint: abdominal pain HPI Narrative UZMA GALLEGO, is a 35 F who presents Chief Complaint: Constipation and loose stool Patient has had GI issues for many years but over time this just became her normal. Patient has constipation and sometimes loose stool. She typically has a bowel movement every day but will strain. She endorses loose stool 2-3 times per week. She has tried to eliminate certain foods including those containing gluten. She did gluten-free for a year which did help with some of her diarrhea but not the constipation. She has some lower abdominal cramping that she feels is like Menstrual pain but happens and not on her menses. She has been tested for celiac disease before and it was negative as well as the 14 most common food allergies. She does have a latex allergy and wonders if she has allergy to banana avocado or kiwi. She denies blood in her stool. Patient also with heartburn almost daily. She does not take medications for this as it is manageable. She has a constant feeling of food in her throat. But denies difficulty swallowing. She does have a history of allergies and takes Claritin daily. She notes her eosinophils have been high. No history of EGD or colonoscopy. [facility], [facility] Medical History Heartburn Non-smoker History of echocardiogram History of stress test Rash Thyroid disease Home Medications ?Medication ?Instructions ?Recorded ?Last Taken ?Type multivitamin 1 tab PO DAILY 03/30/23 Unknown History levothyroxine 37.5 mcg capsule 75 mcg PO DAILY 05/05/23 Unknown History calcium 300 mg-D3 25 mcg-magnesium 1 tab PO .QD 03/21/25 Unknown History 66 mg-K2 37.5 mcg-herbal tablet (Alive Calcium-Vitamin D3-K2) loratadine 10 mg tablet (Claritin) 10 mg PO QDAY 03/21/25 Unknown History Allergy/AdvReac Type Severity Reaction Status Date / Time Latex, Natural Rubber Allergy Mild Hives Verified 04/26/25 11:22 nickel Allergy Mild Rash Verified 04/26/25 11:22 povidone-iodine (From Allergy Mild Hives Verified 04/26/25 11:22 Betadine) Seasonal Allergies: Uncoded Allergy Mild Other Verified 04/26/25 11:22 Family History Father Asthma Hypertension PAD (peripheral artery disease) Brother Asthma Grandmother Dementia Thyroid disorder Grandfather Dementia Grandfather Heart disease Father Heart disease Aunt Thyroid disorder Surgical History Hx of rhinoplasty Social History adopted: Yes household members: spouse number of children: 0 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 pets and animals: dog(s) history of recent travel: Yes ([place]) out of state: Yes out of country: No sexually active: Yes Smoking Status: Never smoker alcohol intake: current alcohol intake frequency: a few times a month Alcohol type: hard liquor substance use type: does not use diet: gluten free caffeine: No (stopped 1 month) what type of physical activity do you participate in: walking and weight training seatbelt use: always do you feel safe at home: Yes 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 Constitutional Constitutional: Denies fatigue, fever(s), poor appetite, weight gain or weight loss Gastrointestinal Gastrointestinal: Denies belching, bloating, change in bowel habits, change in stool character, chewing difficulty, coffee ground emesis, constipation, cramping, diarrhea, dyspepsia, dysphagia, early satiety, excessive flatus, fecal incontinence, heartburn, hematemesis, hematochezia, hemorrhoids, loose stools, melena, nausea, odynophagia, rectal bleeding, tenesmus, vomiting or weight changes Vital Signs Vital Signs Vital Signs: 04/30/25 09:23 04/30/25 09:23 Temperature 98.5 F Temperature Source Temporal Pulse Rate 66 Respiratory Rate 16 Respiratory Pattern Normal Blood Pressure 116/68 Blood Pressure Mean 84 Blood Pressure Source Monitor Blood Pressure Position Semi-Fowlers Blood Pressure Location Left Arm Pulse Ox 100 Oxygen Delivery Method Room Air Weight Weight: 119 lb 4.321 oz Body Mass Index (BMI) 21.1 Physical Exam Const alert, oriented x3, no apparent distress and healthy appearing General Appearance: cooperative GI normal to inspection, nondistended, normoactive bowel sounds, soft to palpation, non-tender and non-distended Percussion: normal to percussion Rectal Exam: deferred Assessment & Plan Assessment/Plan (1) Bloating: (2) Constipation: (3) GERD (gastroesophageal reflux disease): PLAN: Assessment and Plan Assessment and Plan (1) Constipation: Status: Acute (2) Diarrhea: Status: Acute (3) GERD (gastroesophageal reflux disease): Status: Acute Plan: Uzma is a 35-year-old female patient here today for evaluation of GI symptoms including constipation, loose stool and reflux symptoms. Patient has had the symptoms for many years but it is just her normal at this point. She has loose stool 2-3 times per week. She did has a daily bowel movements but with straining. Patient's lower GI symptoms seem more related to IBS with mixed constipation and diarrhea. Will order stool testing to rule out infection or inflammation and then consider further workup with colonoscopy. She has a history of allergies to latex and wonders if she may have the latex associated food allergies. Will order [facility] latex related allergy panel. She has already been tested for celiac disease in the past and it was negative. Recently her serum eosinophils have been elevated and she has concern about parasitic infection. Patient also notes having a globus sensation and daily heartburn She will undergo upper endoscopy to evaluate for GERD and EOE. Will consider treatment with PPI after EGD. - Stool testing - Allergy panel for latex related to food allergies and tomato - EGD - Consider colonoscopy - Follow-up after testing Orders: Orders [facility] Misc. Today [facility] Misc. 2 Today Calprotectin, Stool Today K59.00 - Constipation, unspecified, R19.7 - Diarrhea, unspecified CDIFF (PCR) Today K59.00 - Constipation, unspecified, R19.7 - Diarrhea, unspecified Giardia Lamblia, Stool EIA Today K59.00 - Constipation, unspecified, R19.7 - Diarrhea, unspecified ENTERIC PATHOGEN PANEL STOOL Today K58.9 - Irritable bowel syndrome, unspecified, K59.00 - Constipation, unspecified, R19.7 - Diarrhea, unspecified Ova and Parasites [id number] Today K58.9 - Irritable bowel syndrome, unspecified, K59.00 - Constipation, unspecified, R19.7 - Diarrhea, unspecified Stool Lactoferrin/WBC Today K58.9 - Irritable bowel syndrome, unspecified, K59.00 - Constipation, unspecified, R19.7 - Diarrhea, unspecified
[2025-04-30 09:51] LABS: Internal QC Validated? YES +Cl - CLEAR BKGD; Pregnancy, Urine Negative Negative; Record Kit Lot#,Urine Preg 0000980607
--- NOTE | 2025-04-30 10:00 | EGD_PTH ---
PATIENT: ARNALDO GALLEGO LOC: EN U#:[id number] AGE/SX: 35/F ROOM: RE04/30/[address]: Dr. Steve Melgoza DO : 1990 BED: DIS: 04/30/2025 SPEC #: [id number] RECD: 04/30/25 10:37 STATUS: JAYME RESkye #: [id number] TAM: 04/30/25 10:[address]: Steve Melgoza DEPT: SURGICAL PATHOLOGY RECD BY: Adalberto Goldsmith ENTERED: 04/30/25 11:40 SP TYPE: EGD BIOPSY OTHR DR: Umu Altamirano MD Tissues: A - Duodenum, NOS B - Gastric mucous membrane C - Esophagus, NOS Procedures: Immunohistochemical Stains Surgery Specimen Level IV HEADER OPERATION: EGD with biopsy PRE-OP DIAGNOSIS: Constipation, diarrhea, GERD, abdominal pain TISSUE SUBMITTED: A- Duodenum biopsy, B- Gastric body biopsy, C- Distal esophagus biopsy MICROSCOPIC DIAGNOSIS A. Duodenum, biopsy: * Normal villous architecture with Porsche gland hyperplasia. * Negative for increased intraepithelial lymphocytes. B. Gastric body, biopsy: * Oxyntic mucosa with features of reactive gastropathy. * IHC negative for H. pylori organisms. C. Distal esophagus, biopsy: * Scant benign squamous mucosa. * Columnar mucosa negative for goblet cell metaplasia. MICROSCOPIC DESCRIPTION Slides are reviewed. All matched controls reacted appropriately. These tests were developed and their performance characteristics determined by [facility]. They may not have been cleared or approved by the U.S. Food and Drug Administration. The FDA has determined that such clearance or approval is not necessary. The above immunohistochemical markers and/or special?stains have been reviewed by the Pathologist. GROSS DESCRIPTION A. Received in fixative is one container labeled with the patient's name and designated Duodenum biopsy. The specimen consists of two irregular fragments of murphy tissue, each measuring 0.5 cm. The specimen is totally submitted in one cassette. B. Received in fixative is one container labeled with the patient's name and designated Gastric body biopsy. The specimen consists of three irregular fragments of murphy tissue that measure 0.6 to 1 cm. The specimen is totally submitted in one cassette. C. Received in fixative is one container labeled with the patient's name and designated Distal esophagus biopsy. The specimen consists of three irregular fragments of murphy tissue that measure <0.1 to 0.6 cm. Smallest fragment unlikely to survive processing. The specimen is totally submitted in one cassette. [place] 04/30/2025 CPT:[id number]
--- NOTE | 2025-04-30 10:31 | PCM.POST.ANE ---
Anesthesia: Postop Eval I Current Vital Signs Temperature: 98.2 F Pulse Rate: 62 Blood Pressure: 99/45 Respiratory Rate: 16 Pulse Ox: 98 Oxygen Delivery Method: Room Air Assessment Airway patent: Yes Spontaneous unlabored respirations: Yes Mental status: Asleep nausea: No Vomiting: No Anesthesia Complication: No Fluid Hydration Crystalloid volume administer (ml): 400 Total IV fluid infused: 400 Progress Note Anesthesia document: Postop Eval 1 completed: Yes
--- NOTE | 2025-04-30 10:36 | OP.EGD_ITS ---
Patient Name: Uzma Fall Procedure Date: 04/30/2025 9:53 AM Date of : 1990 Age: 35 Procedure: Upper GI endoscopy Indications: Epigastric abdominal pain, Abdominal pain in the left upper quadrant, Functional Dyspepsia Providers: Steve Melgoza DO Referring MD: Umu Altamirano Md Medicines: Monitored Anesthesia Care Patient Profile: This is a 35 year old female. Refer to note in patient chart for documentation of history and physical. Patient has symptoms of acute left upper quadrant abdominal pain, acute epigastric abdominal pain, chronic epigastric abdominal pain and acute dyspepsia. Complications: No immediate complications. Procedure: Pre-Anesthesia Assessment: - Prior to the procedure, a History and Physical was performed, and patient medications and allergies were reviewed. The patient is competent. The risks and benefits of the procedure and the sedation options and risks were discussed with the patient. All questions were answered and informed consent was obtained. Patient identification and proposed procedure were verified by the physician in the pre-procedure area. Mental Status Examination: alert and oriented. Airway Examination: normal oropharyngeal airway and neck mobility. Respiratory Examination: clear to auscultation. CV Examination: normal. Prophylactic Antibiotics: The patient does not require prophylactic antibiotics. Prior Anticoagulants: The patient has taken no anticoagulant or antiplatelet agents except for NSAID medication. ASA Grade Assessment: II - A patient with mild systemic disease. After reviewing the risks and benefits, the patient was deemed in satisfactory condition to undergo the procedure. The anesthesia plan was to use monitored anesthesia care (MAC). Immediately prior to administration of medications, the patient was re-assessed for adequacy to receive sedatives. The heart rate, respiratory rate, oxygen saturations, blood pressure, adequacy of pulmonary ventilation, and response to care were monitored throughout the procedure. The physical status of the patient was re-assessed after the procedure. After obtaining informed consent, the endoscope was passed under direct vision. Throughout the procedure, the patient's blood pressure, pulse, and oxygen saturations were monitored continuously. The gastroscope was introduced through the mouth, and advanced to the third part of the duodenum. Small bowel enteroscopy was deemed necessary. The upper GI endoscopy was accomplished without difficulty. The patient tolerated the procedure well. Scope In: 10:08:27 AM Scope Out: 10:17:07 AM Total Procedure Duration Time 0 hours 8 minutes 40 seconds Findings: The Z-line was irregular and was found 40 cm from the incisors. Biopsies were taken with a cold forceps for histology. Verification of patient identification for the specimen was done. Estimated blood loss was minimal. Segmental moderate inflammation characterized by erosions, erythema and friability was found in the gastric body. Biopsies were taken with a cold forceps for histology. Verification of patient identification for the specimen was done. Estimated blood loss was minimal. Biopsies were taken with a cold forceps for Helicobacter pylori testing. Verification of patient identification for the specimen was done. Estimated blood loss was minimal. Patchy mildly erythematous mucosa without active bleeding and with no stigmata of bleeding was found in the entire duodenum. Impression: - Z-line irregular, 40 cm from the incisors. Biopsied. - Chronic gastritis. Biopsied. - Erythematous duodenopathy. Recommendation: - Discharge patient to home. - Resume previous diet. - Continue present medications. - Await pathology results. -Bile reflux gastritis (BRG): Consider omeprazole 20 mg p.o. twice daily and ursodiol 250 mg p.o. twice daily for bile reflux gastritis dietary modifications to include small, frequent meals low in fat and acid.: Begin Miralax 17g PO at night. Increase dietary fiber and water intake. Consider a motility agent or other laxative options if no improvement. Procedure Code(s): --- Professional --- 48035, Small intestinal endoscopy, enteroscopy beyond second portion of duodenum, not including ileum; with biopsy, single or multiple CPT copyright 2021 [employer]. All rights reserved. The codes documented in this report are preliminary and upon order entry clerk review may be revised to meet current compliance requirements. Steve Melgoza DO 04/30/2025 10:35:42 AM This report has been signed electronically. Number of Addenda: 0 Note Initiated On: 04/30/2025 9:53 AM
--- NOTE | 2025-04-30 10:36 | OP.PROVAT_ITS ---
04/30/2025 Umu Altamirano Md Re : Upper GI endoscopy procedure for Uzma Muñozr Evelia This procedure was performed on Wednesday, April 30, 2025. My impressions and recommendations are as follows: Impressions : - Z-line irregular, 40 cm from the incisors. Biopsied. - Chronic gastritis. Biopsied. - Erythematous duodenopathy. Recommendations : - Discharge patient to home. - Resume previous diet. - Continue present medications. - Await pathology results. -Bile reflux gastritis (BRG): Consider omeprazole 20 mg p.o. twice daily and ursodiol 250 mg p.o. twice daily for bile reflux gastritis dietary modifications to include small, frequent meals low in fat and acid.: Begin Miralax 17g PO at night. Increase dietary fiber and water intake. Consider a motility agent or other laxative options if no improvement. My findings are described in the full procedure note, which is enclosed. If I can be of further assistance, please feel free to contact me at . Sincerely, Steve Melgoza, 04/30/2025 10:35:42 AM This report has been signed electronically.
--- NOTE | 2025-04-30 10:47 | PCM.POSTANE2 ---
Anesthesia Postop Eval I Sum Postop Eval Completion status Anesthesia document: Postop Eval 1 completed: Yes Anesthesia Postop Eval I Summary Anesthesia Postop Eval I Summary: Anesthesia Postop Eval I: Assessment Summary Airway patent Yes 04/30/25 10:32 [email or web address] Spontaneous unlabored Yes 04/30/25 10:32 [email or web address] respirations Mental status Asleep 04/30/25 10:32 [email or web address] nausea No 04/30/25 10:32 [email or web address] Vomiting No 04/30/25 10:32 [email or web address] Anesthesia Postop Eval I: Fluid Summary Crystalloid volume administer 400 04/30/25 10:32 [email or web address] (ml) Colloids volume administered ( ml) Blood Product volume administered (ml) Total IV fluid infused 400 04/30/25 10:32 [email or web address] Anesthesia Postop Eval I: Summary Notes Anesthesia Complication No 04/30/25 10:32 [email or web address] Anesthesia Complication Comment: Post-operative progress note Anesthesia: Postop Eval II Evaluation Mental status: Awake Pain Level: 0 nausea: No Vomiting: No Complications Anesthesia Complication: No
== END 2025-04-30 11:00 | disposition home or self-care (01) ==
LOC: EN 09:00 → AC 09:01
PROVIDERS: Anesthesiology; PCP Family Medicine; Referring Provider Family Medicine; Visit Provider Internal Medicine Gastroenterology
PROC: 0DJ08ZZ Inspection of Upper Intestinal Tract, Via Natural or Artificial Opening Endoscopic (ICD-10-PCS; CPT 43235; principal; 2025-04-30 09:55)
DX: K59.00 Constipation, unspecified (principal); R14.0 Abdominal distension (gaseous); R19.7 Diarrhea, unspecified; K29.50 Unspecified chronic gastritis without bleeding; K21.9 Gastro-esophageal reflux disease without esophagitis; K22.89 Other specified disease of esophagus; K31.89 Other diseases of stomach and duodenum
CPT/HCPCS: 44361; 81025; 88305; 88342; J2405